=== PATIENT | female | born 1955 | race Caucasian/White ===

== ENCOUNTER → 2016-07-13 | Outpatient (CLI) | payer BC | LOC: WI 09:20 | PROVIDERS: ATTEND Family Medicine | DX: Z12.31 Encounter for screening mammogram for malignant neoplasm of breast (principal) | CPT/HCPCS: 77067; G0202 ==

== ENCOUNTER → 2016-07-21 | Outpatient (CLI) | payer BC | LOC: RAD 13:04 | PROVIDERS: ATTEND Orthopaedic Surgery | DX: M25.512 Pain in left shoulder (principal); M75.92 Shoulder lesion, unspecified, left shoulder ==

== ENCOUNTER → 2017-10-06 | Outpatient (CLI) | payer BC ==
--- NOTE | 2017-10-06 16:55 | WOMENS IMAGING REPORT ---
EXAM DESCRIPTION: BILAT SCREENING MAMMO W/CAD COMPLETED DATE/TIME: 10/06/2017 3:45 pm REASON FOR STUDY: ROUTINE SCREENING;Z12.31 Z12.31 ENCNTR SCREEN MAMMOGRAM FOR MALIGNANT NEOPLASM OF DOROTHY COMPARISON: 07/13/2016 and 08/08/2014 TECHNIQUE: Standard craniocaudal and mediolateral oblique views of each breast recorded using digita l acquisition. LIMITATIONS: None. FINDINGS: Findings present which are benign by mammographic criteria. No suspicious masses, calcifi cations or architectural distortion. Read with the assistance of CAD. .[facility] - R2 Cenova Version 1.3 .[facility] - R2 Cenova Version 1.3 .[facility] - R2 Cenova Version 2.4 .[facility] - R2 Cenova Version 2.4 .[facility] - R2 [employer] Version 9.2 Benign mammographic findings may include one or more of the following: Smooth masses, popcorn/rim/co arse calcifications, asymmetries, post-procedure changes, and lesions with long-standing stability. IMPRESSION: BENIGN MAMMOGRAPHIC FINDINGS. BIRADS 2 BREAST DENSITY: a. The breasts are almost entirely fatty. BIRAD: 2 BENIGN FINDING(S) RECOMMENDATION: ROUTINE SCREENING COMMENT: The patient has been notified of the results by letter per SA requirements. Additional no tification policies are in place for contacting patient with suspicious or incomplete findings. Quality ID #225: The [employer] recommends an annual screening mammogram for women aged 40 years or over. This facility utilizes a reminder system to ensure that all patients receive reminder letters, and/or direct phone calls for appointments. This includes reminders for routine scr eening mammograms, diagnostic mammograms, or other Breast Imaging Interventions when appropriate. Th is patient will be placed in the appropriate reminder system. The [employer] (ACR) has developed recommendations for screening MRI of the breast s in certain patient populations, to be used in conjunction with mammography. Breast MRI surveillanc e may be appropriate for women with more than 20% lifetime risk of developing breast cancer as deter mined by genetic testing, significant family history of the disease, or history of mantle radiation f or Hodgkins Disease. ACR Practice Guidelines 2008. TECHNICAL DOCUMENTATION: FINDING NUMBER: (1) ASSESSMENT: (1) JOB ID: [id number] [employer]- All Rights Reserved Reading location - IP/workstation name: [email or web address]
== END ==
LOC: WI 14:35
PROVIDERS: ATTEND Physician Assistant
DX: Z12.31 Encounter for screening mammogram for malignant neoplasm of breast (principal)
CPT/HCPCS: 77067

== ENCOUNTER → 2017-11-05 | Outpatient (CLI) | payer BC ==
--- NOTE | 2017-11-05 16:35 | RADIOLOGY REPORT (SQ) ---
EXAM DESCRIPTION: U/S THYROID/SFT TISS HD NECK COMPLETED DATE/TIME: 11/05/2017 4:25 pm REASON FOR STUDY: IODINE-DEFICIENCY RELATED DIFFUSE (ENDEMIC) GOITER E01.0 IODINE-DEFICIENCY RELATE D DIFFUSE (ENDEMIC) GOITER COMPARISON: None. TECHNIQUE: Dynamic and static shea-scale images acquired of the thyroid gland. Selected additional c olor/power Doppler images recorded. All images stored to PACS. LIMITATIONS: None. FINDINGS: RIGHT LOBE: Normal size. Homogeneous echotexture. No cystic or solid masses. LEFT LOBE: Normal size. Homogeneous echotexture. No cystic or solid masses. ISTHMUS: Normal size. Homogeneous echotexture. No cystic or solid masses. OTHER: 2 cm lymph nodes adjacent to the right and left lobe of the thyroid gland. No evidence for no rmal tissue replacement. IMPRESSION: Normal thyroid ultrasound. Prominent artemio thyroidal lymph nodes with normal morphology. TECHNICAL DOCUMENTATION: JOB ID: [id number] [employer]- All Rights Reserved Reading location - IP/workstation name: [facility]-RR
== END ==
LOC: RAD 15:36
PROVIDERS: ATTEND Physician Assistant
DX: E01.0 Iodine-deficiency related diffuse (endemic) goiter (principal)
CPT/HCPCS: 76536

== ENCOUNTER → 2018-01-21 | Outpatient (CLI) | payer BC ==
--- NOTE | 2018-01-21 16:07 | RADIOLOGY REPORT (SQ) ---
EXAM DESCRIPTION: CT SOFT TISSUE NECK WITH COMPLETED DATE/TIME: 01/21/2018 3:45 pm REASON FOR STUDY: R22.1 LOCALIZED SWELLING, MASS AND LUMP, NECK R22.1 LOCALIZED SWELLING, MASS AND LUMP, NECK COMPARISON: Two-view chest same date TECHNIQUE: Post IV contrasted scanning from skull base through lung apices with review of bone, soft tissue and lung windows. Reconstructed coronal and sagittal MPR images reviewed. All images stored on PACS. All CT scanners at this facility use dose modulation, iterative reconstruction, and/or weight based d osing when appropriate to reduce radiation dose to as low as reasonably achievable (ALARA). [facility]: Dose Right [facility]: CareDose [facility]: Dose Right [facility]: Teradose 4D [facility]: [employer]ge CONTRAST TYPE AND DOSE: contrast/concentration: Isovue 350.00 mg/ml; Total Contrast Delivered: 75.0 ml; Total Saline Delivered: 37.4 ml RENAL FUNCTION: Creatinine 0.8 RADIATION DOSE: 22.5 mGy . LIMITATIONS: None. FINDINGS: There is upper mediastinal adenopathy with a conglomerate mass measuring 5.7 x 3.3 cm in s ize on axial image 107. This causes near occlusion of the superior vena cava and right and left brac hiocephalic vein on axial images 95-115. Multiple other smaller subcentimeter lymph nodes are seen a t the thoracic inlet, bilateral carotid spaces and posterior triangles. There is subcutaneous edema in the neck. The bilateral internal jugular veins are patent. There is a moderate left pleural effusion layering dependently in the left chest. These findings were called to DARNELL Guevara. CT scan of the chest abdomen and pelvis will be perfo rmed shortly. SKULL BASE: Inferior brain parenchyma unremarkable MAJOR SALIVARY GLANDS: No solid or cystic masses. No inflammatory changes. LYMPHADENOPATHY: As above MUCOSAL MASSES OR ASYMMETRY: No mucosal masses or asymmetry. LARYNX/CORDS: No abnormal findings. VASCULAR STRUCTURES: In the neck, the internal jugular veins are patent. There is atherosclerotic ca lcification at both carotid bifurcations without flow significant stenosis of the proximal internal c arotid arteries. LUNG APICES: Moderate left pleural effusion BONES: Degenerative disc changes at C5-6. THYROID: Normal size. No masses. PARANASAL SINUSES: Clear. OTHER: No other significant finding. 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 Sub cutaneous edema in the neck soft tissues. COMMENT: Pertinent findings on the imaging study reported as a CRITICAL RESULT to ADIA PALENCIA at16:00 on 01/21/2018. 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
--- NOTE | 2018-01-21 16:08 | RADIOLOGY REPORT (SQ) ---
EXAM DESCRIPTION: CHEST 2 VIEWS COMPLETED DATE/TIME: 01/21/2018 3:55 pm REASON FOR STUDY: R05 COUGH COMPARISON: None. EXAM PARAMETERS: NUMBER OF VIEWS: two views TECHNIQUE: Digital Frontal and Lateral radiographic views of the chest acquired. RADIATION DOSE: NA LIMITATIONS: none FINDINGS: LUNGS AND PLEURA: Blunting of the left costophrenic angle with mild left pleural effusion and compressive atelectatic changes left lower lung. The right lung is clear. No pneumothorax. MEDIASTINUM AND HILAR STRUCTURES: No masses or contour abnormalities. HEART AND VASCULAR STRUCTURES: Heart normal size. No evidence for failure. BONES: No acute findings. HARDWARE: None in the chest. OTHER: No other significant finding. IMPRESSION: 1. Mild left pleural effusion and left lower lung compressive atelectasis. Correlation suggested. TECHNICAL DOCUMENTATION: JOB ID: [id number] [email or web address]- All Rights Reserved Reading location - IP/workstation name: [email or web address]
--- NOTE | 2018-01-21 17:22 | RADIOLOGY REPORT (SQ) ---
EXAM DESCRIPTION: CT CHEST WITH; CT ABD/PELVIS WITH IV ONLY COMPLETED DATE/TIME: 01/21/2018 4:23 pm; 01/21/2018 4:10 pm REASON FOR STUDY: MEDIASTINAL LYMPHADENOPATHY R22.1 LOCALIZED SWELLING, MASS AND LUMP, NECK COMPARISON: CT soft tissue neck earlier today CONTRAST TYPE AND DOSE: 75 mL of IV Omnipaque 350- low osmolar. RENAL FUNCTION: Creatinine 0.8 TECHNIQUE: CT scan of the chest performed using helical scanning technique with dynamic intravenous contrast injection. Images reviewed with lung, soft tissue and bone windows. Reconstructed coronal a nd sagittal MPR images reviewed. All images stored on PACS. CT scan of the abdomen and pelvis performed with intravenous and without oral contrastusing helical s brian technique with dynamic intravenous contrast injection. Images reviewed with lung, soft tissu e and bone windows. Reconstructed coronal and sagittal MPR images reviewed. He All images stored on PACS. All CT scanners at this facility use dose modulation, iterative reconstruction, and/or weight based d osing when appropriate to reduce radiation dose to as low as reasonably achievable (ALARA). [facility]: Dose Right [facility]: CareDose [facility]: Dose Right [facility]: Teradose 4D [facility]: [employer] RADIATION DOSE: CT Rad equipment meets quality standard of care and radiation dose reduction techniq ues were employed. CTDIvol: 7.5 - 8.7 mGy. DLP: 686 mGy-cm. . LIMITATIONS: None. FINDINGS: CHEST: LUNGS AND PLEURA: Trace right, moderate left pleural effusion layering in the dependent portion of th e chest. There is left basilar atelectasis. No pulmonary nodules. No pneumothorax. HILAR AND MEDIASTINAL STRUCTURES: Superior vena cava is near completely occluded by a 5.8 x 3.4 cm up per mediastinal mass, best shown on axial images 11 through 23 and coronal images 39 through 49. There is a sub- carinal 4.4 x 2.8 cm lymph node. Small 1 cm right hilar lymph nodes are present. HEART AND VASCULAR STRUCTURES: Near complete occlusion of the superior vena cava by soft tissue mass in the upper mediastinum. There is tumor or thrombus in the right brachiocephalic vein and left brac hiocephalic vein. Contrast enhancement of the left chest wall veins, azygos and guanaco azygous veins HARDWARE: None. THYROID AND OTHER SOFT TISSUES: Thyroid unremarkable. Mild anterior chest wall edema, bilateral paco st edema. BONES: No significant finding. OTHER: This report was discussed with Diane Cifuentes ABDOMEN AND PELVIS: LIVER: Normal size. No masses. No dilated ducts. SPLEEN: Normal size. No focal lesions. PANCREAS: No masses. No significant calcifications. No adjacent inflammation or peripancreatic fluid collections. Pancreatic duct not dilated. GALLBLADDER: Surgically absent ADRENAL GLANDS: No significant masses or asymmetry. RIGHT KIDNEY AND URETER: No solid masses. No significant calcification. No hydronephrosis or hydroure ter. LEFT KIDNEY AND URETER: No solid masses. No significant calcification. No hydronephrosis or hydrouret er. AORTA AND VESSELS: No aneurysm. No dissection. Renal arteries, SMA, celiac without stenosis. RETROPERITONEUM: No retroperitoneal adenopathy, hemorrhage or masses. BOWEL AND PERITONEAL CAVITY: No masses or inflammatory changes. No free fluid or peritoneal masses. APPENDIX: Normal. ABDOMINAL WALL: No masses. No hernias. PELVIS: No mass or free fluid. Normal bladder. Normal size female pelvic organs BONES: No significant or acute findings. OTHER: No other significant finding. IMPRESSION: 5.8 x 3.4 cm upper mediastinal mass with near complete occlusion of the superior vena ca va. Right hilar and sub- carinal adenopathy. Trace right, moderate left pleural effusion No CT evidence of metastatic disease to the abdomen or pelvis Findings discussed with Diane Cifuentes and Dr. Kothari, 1710 hours 01/21/2018 TECHNICAL DOCUMENTATION: JOB ID: [id number] Quality ID # 436: Final reports with documentation of one or more dose reduction techniques (e.g., Au tomated exposure control, adjustment of the mA and/or kV according to patient size, use of iterative reconstruction technique) 2010 [employer]- All Rights Reserved Reading location - IP/workstation name: [facility]-[email or web address]
== END ==
LOC: RAD 16:43
PROVIDERS: ATTEND Physician Assistant
DX: J90 Pleural effusion, not elsewhere classified (principal); R59.0 Localized enlarged lymph nodes; R05 Cough; R22.2 Localized swelling, mass and lump, trunk
CPT/HCPCS: 70491; 71046; 71260; 74177; 82565

== ENCOUNTER → 2018-04-01 | Outpatient (CLI) | payer BC ==
[2018-04-01 08:22] LABS: ABSOLUTE MONOCYTES (AUTO) 0.5 10^3/uL (0.1-1.4); ABSOLUTE NEUT (AUTO) 2.3 10^3/uL (1.7-8.2); BASOPHILS % (AUTO) 0.6 % (0-2); EOSINOPHILS % (AUTO) 0.9 % (0-6); HEMATOCRIT 28.6 % (36.0-47.0); HEMOGLOBIN 9.9 g/dL (12.0-15.5); MEAN CORPUSCULAR HEMOGLOBIN 29.9 pg (27.0-33.4); MEAN CORPUSCULAR HGB CONC 34.7 g/dL (32.0-36.0); MEAN CORPUSCULAR VOLUME 86 fl (80-97); MONOCYTES % (AUTO) 12.7 % (3-13); PLATELET COUNT 189 10^3/uL (150-450); RED BLOOD COUNT 3.32 10^6/uL (3.72-5.28); RED CELL DISTRIBUTION WIDTH 18.2 % (11.5-14.0); SEGMENTED NEUTROPHILS % (AUTO) 59.8 % (42-78); TOTAL CELLS COUNTED % (AUTO) 100 %; WHITE BLOOD COUNT 3.8 10^3/uL (4.0-10.5)
== END ==
LOC: OD 07:33
PROVIDERS: ATTEND Radiology Radiation Oncology
DX: C34.00 Malignant neoplasm of unspecified main bronchus (principal)
CPT/HCPCS: 36415; 85025

== ENCOUNTER → 2018-04-21 | Outpatient (CLI) | payer BC ==
[2018-04-21 16:27] LABS: ABSOLUTE LYMPHOCYTES (AUTO) 0.6 10^3/uL (0.5-4.7); ABSOLUTE MONOCYTES (AUTO) 0.4 10^3/uL (0.1-1.4); ABSOLUTE NEUT (AUTO) 1.8 10^3/uL (1.7-8.2); BASOPHILS % (AUTO) 0.2 % (0-2); EOSINOPHILS % (AUTO) 0.4 % (0-6); HEMATOCRIT 25.8 % (36.0-47.0); HEMOGLOBIN 9.1 g/dL (12.0-15.5); LYMPHOCYTES % (AUTO) 20.7 % (13-45); MEAN CORPUSCULAR HEMOGLOBIN 31.5 pg (27.0-33.4); MEAN CORPUSCULAR HGB CONC 35.3 g/dL (32.0-36.0); MEAN CORPUSCULAR VOLUME 89 fl (80-97); MONOCYTES % (AUTO) 13.8 % (3-13); PLATELET COUNT 123 10^3/uL (150-450); RED CELL DISTRIBUTION WIDTH 21.4 % (11.5-14.0); SEGMENTED NEUTROPHILS % (AUTO) 64.9 % (42-78); TOTAL CELLS COUNTED % (AUTO) 100 %; WHITE BLOOD COUNT 2.7 10^3/uL (4.0-10.5)
== END ==
LOC: OD 14:41
PROVIDERS: ATTEND Radiology Radiation Oncology
DX: C34.00 Malignant neoplasm of unspecified main bronchus (principal); C77.1 Secondary and unspecified malignant neoplasm of intrathoracic lymph nodes
CPT/HCPCS: 36415; 85025

== ENCOUNTER 2019-01-28 00:22 | Observation (INO) | payer BC ==
[2019-01-28] MEDS ORDERED: METHYLPREDNISOLONE INJ 125 MG/2 ML SDV IV ONE (00:44)
[2019-01-28] MEDS ORDERED: ALBUTEROL SULFATE 0.083% NEB 2.5 MG/3 ML AMPUL NEB ONE (00:44)
[2019-01-28] MEDS ORDERED: IPRATROPIUM BROMIDE 0.02% NEB 0.5 MG/2.5 ML AMPUL NEB ONE (00:44)
--- NOTE | 2019-01-28 01:49 | RADIOLOGY REPORT (SQ) ---
EXAM DESCRIPTION: X-ray single view chest. CLINICAL HISTORY: 63 years Female, sob COMPARISON: Chest x-ray and chest CT performed on 11/13/2018 TECHNIQUE: Single portable x-ray view of the chest performed on 01/28/2019 at 1:09 AM FINDINGS: The lungs are well expanded. There is bibasilar and left perihilar interstitial prominence which may be due to fibrosis and/or atelectasis versus possible interstitial edema. There is no evidence of a pneumothorax. There is a metallic stent along the superior vena cava. The cardiac silhouette is normal in size and configuration. The mediastinal contours are normal. No acute osseous abnormality is identified. No focal soft tissue abnormalities are seen. Lines and tubes: None. IMPRESSION: 1. Bibasilar and left perihilar interstitial prominence which could reflect fibrosis, atelectasis or interstitial edema. 2. Stable superior vena cava stent.
[2019-01-28 02:07] LABS: ABSOLUTE LYMPHOCYTES (AUTO) 0.9 10^3/uL (0.5-4.7); ABSOLUTE MONOCYTES (AUTO) 0.7 10^3/uL (0.1-1.4); ABSOLUTE NEUT (AUTO) 6.8 10^3/uL (1.7-8.2); BASOPHILS % (AUTO) 0.1 % (0-2); HEMATOCRIT 26.7 % (36.0-47.0); HEMOGLOBIN 8.4 g/dL (12.0-15.5); LYMPHOCYTES % (AUTO) 10.7 % (13-45); MEAN CORPUSCULAR HEMOGLOBIN 27.2 pg (27.0-33.4); MEAN CORPUSCULAR HGB CONC 31.6 g/dL (32.0-36.0); MEAN CORPUSCULAR VOLUME 86 fl (80-97); MONOCYTES % (AUTO) 8.2 % (3-13); PLATELET COUNT 182 10^3/uL (150-450); TOTAL CELLS COUNTED % (AUTO) 100 %; WHITE BLOOD COUNT 8.4 10^3/uL (4.0-10.5)
[2019-01-28 02:12] LABS: INTERNATIONAL RATION (INR) 1.25
[2019-01-28 02:31] LABS: PROTHROMBIN TIME 15.8 SEC (11.4-15.4)
[2019-01-28 02:49] LABS: ALBUMIN 3.3 g/dL (3.5-5.0); ALKALINE PHOSPHATASE 187 U/L (38-126); ANION GAP 7 (5-19); ASPARTATE AMINO TRANSFERASE 61 U/L (14-36); BILIRUBIN,DIRECT 0.2 mg/dL (0.0-0.4); BILIRUBIN,TOTAL 0.5 mg/dL (0.2-1.3); BLOOD UREA NITROGEN 41 mg/dL (7-20); CALCIUM 8.5 mg/dL (8.4-10.2); CARBON DIOXIDE 28 mmol/L (22-30); CHLORIDE 103 mmol/L (98-107); GLUCOSE 287 mg/dL (75-110); TOTAL PROTEIN 5.8 g/dL (6.3-8.2)
[2019-01-28 03:04] LABS: TROPONIN I 0.156 ng/mL
[2019-01-28] MEDS ORDERED: NITROGLYCERIN 2% OINTMENT 1 GM PACKET TP ONE (03:08)
[2019-01-28] MEDS ORDERED: ASPIRIN 325 MG TABLET PO ONE (03:08)
[2019-01-28] MEDS ORDERED: FUROSEMIDE INJ/PF 40 MG/4 ML SDV IV ONE (03:34)
--- NOTE | 2019-01-28 03:45 | ER Document Report ---
ED Respiratory Problem - General Chief Complaint: Breathing Difficulty Stated Complaint: SHORTNESS OF BREATH Primary Care Provider: MILTON PALENCIA PA-C [Primary Care Provider] - Follow up as needed Information source: Patient TRAVEL OUTSIDE OF THE [place] IN LAST 30 DAYS: No - HPI Patient complains to provider of: No: Asthma, Chest pain, CHF, COPD, Cough, Hurts to breath, Other Onset: Just prior to arrival Duration: Continuous Initiating Event: No: Allergy, Aspiration/Choking, Exertion, Exposure to chemica ls, Exposure to dust, Exposure to fumes, Exposure to mold, Exposure to smoke, Out of meds, Sports/exercise, URI, Other Quality of pain: denies: No pain, Achy, Burning, Cramping, Dull, Fullness, Pressure, Sharp, Stabbing, Throbbing, Other Context: denies: DVT, Factor V Leiden, Hx asthma, Hx CHF, Hx COPD, Malignancy, , Recent cardiac event, Recent foreign travel, Recent long distance trvl, Recent immobilization, Recent surgery, Smoker, Other Short of Breath: Moderate Chest pain/discomfort: denies: Center, Constant, Heaviness, Intermittent, Left, Pain, Radiates to arm, Radiates to back, Radiates to jaw, Right, Tightness, Worse with deep breaths Cough: Nonproductive Sputum amount: denies: None, Scant, Small, Moderate, Large, Copious Sputum color: denies: Brown, Clear, Creamy, Lloyd, Green, [place] tinged, Red (blo od), Red Specks, Rust, Small Clots, [place], White, Yellow At home treatment: denies: Bronchodilators, CPAP, Diuretics, Inhaled steroids, Oral steroids, Oxygen, Singulair, Theophylline EMS treatments: No: Bronchodilators, CPAP, Diuretics, Epinephrine, Nitrates, Oxygen, Solumedrol Associated symptoms: Cough, Short of breath. denies: None, Ankle/leg swelling, Allergy/hay fever, Anxiety, Bloody cough, Chest pain/discomfort, Chills, Congestion, Dental decay, Difficulty breathing, Earache, Extertional dyspnea, Facial pain, Fever, Headache, Heart racing, Hoarseness, Hurts to breathe, Hyperventilation, Jaw pain, Leg/calf/joint pain, Muscle spasms, Orthopnea, PND, Runny nose, Sinus pain/pressure, Sore Throat, Sweaty, Tingling face, Tingling hands, Unable to swallow, Toothache, Wheezing, Other - Related Data Allergies/Adverse Reactions: codeine Allergy (Verified 11/12/18 23:12) Past Medical History - Social History Smoking Status: Current Every Day Smoker Family History: COPD, Hypertension Patient has suicidal ideation: No Patient has homicidal ideation: No Endocrine Medical History: Reports: Hx Hypothyroidism Renal/ Medical History: Denies: Hx Peritoneal Dialysis Malignancy Medical History: Reports: Hx Lung Cancer Musculoskeletal Medical History: Reports Hx Arthritis Psychiatric Medical History: Reports: Hx Depression Past Surgical History: Reports: Hx Vascular Surgery Review of Systems - Review of Systems Constitutional: denies: No symptoms reported, See HPI, Chills, Diaphoresis, Fever, Malaise, Weakness, Other, Weight gain, Weight loss, Recent illness EENT: denies: No symptoms reported, See HPI, Eye pain, Eye discharge, Blurred vision, Tearing, Double vision, Ear pain, Ear discharge, Nose pain, Nose congestion, Nose discharge, Sinus pressure, Sinus discharge, Throat pain, Difficulty swallowing, Throat swelling, Mouth pain, Mouth swelling, Dental problem, Vertigo, Other Cardiovascular: Orthopnea, Dyspnea. denies: No symptoms reported, See HPI, Chest pain, Palpitations, Heart racing, Syncope, Dizziness, Lightheaded, Edema, Other, Paroxysmal Nocturnal Dysp Respiratory: Short of breath, Wheezing. denies: No symptoms reported, See HPI, Cough, Hurts to breathe, Hemoptysis, Sputum, Stridor, Other Gastrointestinal: denies: No symptoms reported, See HPI, Abdomen distended, Abdominal pain, Diarrhea, Nausea, Vomiting, Constipation, Blood streaked bowels, Poor appetite, Poor fluid intake, Blood in vomit, Black stools, Rectal bleeding, Last bowel movement, Fecal incontinence, Other Neurological/Psychological: denies: No symptoms reported, See HPI, Confusion, Dementia, Depression, Hallucinations, Anxiety, Homicidal ideation, Sensory change, Weakness, Gait changes, Loss of power, Paralysis, Seizure, Lost consciousness, Headaches, Speech impairment, Numbness, Suicidal ideation, Tingling, Tremor, Other -: Yes All other systems reviewed and negative Physical Exam - Vital signs Vitals: Temp Resp BP Pulse Ox 97.6 F 24 H 115/68 99 01/28/19 00:34 01/28/19 00:34 01/28/19 00:34 01/28/19 00:34 Notes: PHYSICAL EXAMINATION: GENERAL: Well-appearing, well-nourished and in no acute distress. HEAD: Atraumatic, normocephalic. EYES: Pupils equal round and reactive to light, extraocular movements intact, sclera anicteric, conjunctiva are normal. ENT: nares patent, oropharynx clear without exudates. Moist mucous membranes. NECK: Normal range of motion, supple without lymphadenopathy LUNGS: Wheezes heard bilaterally and Rales heard bilaterally throughout HEART: Regular rate and rhythm without murmurs ABDOMEN: Soft, nontender, normoactive bowel sounds. No guarding, no rebound. No masses appreciated. EXTREMITIES: Normal range of motion, no pitting or edema. No cyanosis. NEUROLOGICAL: No focal neurological deficits. Moves all extremities spontaneously and on command. PSYCH: Normal mood, normal affect. SKIN: Warm, Dry, normal turgor, no rashes or lesions noted. Course - Vital Signs Vital signs: Temp Pulse Resp BP Pulse Ox 97.6 F 17 110/69 98 01/28/19 00:34 01/28/19 03:00 01/28/19 01:01 01/28/19 03:00 - Laboratory Result Diagrams: 01/28/19 01:47 01/28/19 01:47 Laboratory results interpreted by me: 01/28/19 01/28/19 01/28/19 01:47 01:47 01:47 RBC 3.10 L Hgb 8.4 L Hct 26.7 L MCHC 31.6 L RDW 22.0 H Lymph % (Auto) 10.7 L Seg Neutrophils % 81.0 H PT 15.8 H BUN 41 H Est GFR (MDRD) Non-Af 58 L Glucose 287 H AST 61 H Alkaline Phosphatase 187 H NT-Pro-B Natriuret Pep Total Protein 5.8 L Albumin 3.3 L 01/28/19 01:47 RBC Hgb Hct MCHC RDW Lymph % (Auto) Seg Neutrophils % PT BUN Est GFR (MDRD) Non-Af Glucose AST Alkaline Phosphatase NT-Pro-B Natriuret Pep 32169 H Total Protein Albumin - Diagnostic Test Radiology reviewed: Image reviewed, Reports reviewed - EKG Interpretation by Me Rate: Normal Rhythm: NSR When compared to previous EKG there are: Changes noted Additional EKG results interpreted by me: 01/28/19 03:45 G shows flipped T's in 1 aVL V3 to V6 which are new from previous EKG suggesting ischemic changes - Transfer of Care Notes: 01/28/19 03:[address] Mckeon body sander was consulted and case discussed with him he suggested medicine admit to the hospitalist and he would consult if necessary Discharge - Discharge Clinical Impression: New onset of congestive heart failure, Non-ST elevation myocardial infarction (NSTEMI) Condition: Good Disposition: ADMITTED INPATIENT Admitting Provider: Yuliya (Hospitalist) Unit Admitted: Medical Floor Referrals: MILTON PALENCIA PA-C [Primary Care Provider] - Follow up as needed
[2019-01-28] MEDS ORDERED: ACETAMINOPHEN 325 MG TABLET PO PRN (04:34)
[2019-01-28] MEDS ORDERED: MAGNESIUM HYDROXIDE SUSP 30 ML UDCUP PO PRN (04:34)
[2019-01-28] MEDS ORDERED: MAG HYDROX/AL HYDROX/SIMETH SUSP 30 ML UDCUP PO PRN (04:34)
[2019-01-28] MEDS ORDERED: ONDANSETRON HCL INJ/PF 4 MG/2 ML SDV IV PRN (04:34)
[2019-01-28] MEDS ORDERED: INSULIN REG, HUMAN 100 UNIT/ML 3 ML VIAL (PYX) SUBCUT PRN (04:45)
[2019-01-28] MEDS ORDERED: MORPHINE SULFATE 10 MG/ML INJ IV PRN (04:45)
[2019-01-28] MEDS ORDERED: NICOTINE 21 MG/24 HR PATCH.TD24 TD PRN (04:45)
[2019-01-28] MEDS ORDERED: LEVALBUTEROL HCL NEB 0.63 MG/3 ML AMPUL NEB PRN (04:45)
[2019-01-28] MEDS: FUROSEMIDE INJ/PF 40 MG/4 ML SDV IV SCH ×3 (05:58→17:20)
[2019-01-28] MEDS ORDERED: HEPARIN SOD (PORCINE) 5,000 UNIT/ML 1 ML VIAL SUBCUT SCH (06:00)
[2019-01-28] MEDS: NITROGLYCERIN 2% OINTMENT 1 GM PACKET TP SCH ×4 (06:03→23:03)
[2019-01-28] MEDS: PANTOPRAZOLE SODIUM 40 MG TABLET.DR PO SCH (06:27)
--- NOTE | 2019-01-28 07:02 | PDOC H&P ---
History of Present Illness Admission Date/PCP: 01/28/2019 03:44 MILTON PALENCIA PA-C Patient complains of: Dyspnea History of Present Illness: SAMI WARREN is a 63 year old female who presented to the emergency room with acute onset dyspnea. She admits that she suddenly developed dyspnea a few hours prior to her presentation to the emergency room. Her moderate to severe dyspnea was constant and persistent accompanied by a nonproductive cough and orthopnea. Her dyspnea was worsened by exertion, and because of its failure to resolve she presented to the emergency room. She admits a recent gamma knife therapy for her metastatic brain lesions performed in [place]. She acknowledges swelling of her bilateral lower extremities and face due to the high-dose steroids she has taken since the gamma knife "surgery". She denies other associated or accompanying signs and symptoms. She denies prior similar episodes and she has not identified any additional aggravating or ameliorating factors for her dyspnea. In the emergency room she was found to have a BNP of 39,600 and a chest x-ray consistent with congestive heart failure. She was also noted to have ischemic changes on her EKG but no ST segment elevation. Her troponin was mildly elevated into the indeterminate zone. With these findings patient was subsequently admitted to the medical floor for further evaluation and treatment. Past Medical History Cardiac Medical History: Reports: Hyperlipidema, Hypertension Denies: Atrial Fibrillation, Congestive Heart Failure, Coronary Artery Disease, DVT, Myocardial Infarction, Peripheral Vascular Disease, Pulmonary Embolism Pulmonary Medical History: Reports: Chronic Obstructive Pulmonary Disease (COPD) Denies: Asthma EENT Medical History: Denies: Cataracts, Ears - Hearing aids Neurological Medical History: Denies: Hemorrhagic CVA, Ischemic CVA, Seizures Endocrine Medical History: Reports: Hypothyroidism, Obesity Denies: Diabetes Mellitus Type 1, Diabetes Mellitus Type 2, Hyperthyroidism Renal/ Medical History: Denies: Chronic Kidney Disease, Nephrolithiasis Malignancy Medical History: Reports: Lung Cancer - With brain metastases GI Medical History: Denies: Cirrhosis, Hepatitis Musculoskeltal Medical History: Reports: Arthritis Denies: Gout Skin Medical History: Denies: Eczema, Psoriasis Psychiatric Medical History: Reports: Depression, Tobacco Dependency Denies: Alcohol Dependency, Substance Abuse Traumatic Medical History: Reports: None Hematology: Denies: Anemia, Bleeding Tendencies Infectious Medical History: Reports: None Past Surgical History Past Surgical History: Reports: Vascular Surgery - Vena cava stenting to relieve tumor obstruction, Other - Gamma knife neurosurgery for brain metastases x2 Social History Information Source: Patient Lives with: Alone Smoking Status: Current Every Day Smoker Electronic Cigarette use?: No Frequency of Alcohol Use: None Hx Recreational Drug Use: No Drugs: None Hx Prescription Drug Abuse: No - Advance Directive Resuscitation Status: Full Code Surrogate healthcare decision maker:: Sean Warren Jr. Family History Family History: COPD, Hypertension Parental Family History Reviewed: Yes Children Family History Reviewed: No Sibling(s) Family History Reviewed.: Yes Medication/Allergy Home Medications: Amlodipine Besylate [Norvasc 5 mg Tablet] 5 mg PO Q12 11/13/18 Apixaban [Eliquis 5 mg Tablet] 5 mg PO BID 11/13/18 Aspirin [Ecotrin 81 mg EC Tablet] 81 mg PO DAILY 11/13/18 Benazepril HCl 20 mg PO Q12 11/13/18 Metoprolol Succinate [Toprol Xl 50 mg Tab.sr] 50 mg PO Q12 11/13/18 Pantoprazole Sodium 40 mg PO QAM 11/13/18 Pravastatin Sodium 20 mg PO QHS 11/13/18 Acetaminophen [Tylenol 325 mg Tablet] 650 mg PO Q4HP PRN tablet 11/14/18 Atorvastatin Calcium [Lipitor 40 mg Tablet] 40 mg PO QHS tablet 11/14/18 Ciprofloxacin HCl/Hc [Cipro HC Otic Suspension] 4 drop TOP BID #1 bottle 11/14/18 Naproxen Sodium [Naprelan] 500 mg PO BID PRN 7 Days #14 tablet.sa 11/14/18 Allergies/Adverse Reactions: codeine Allergy (Verified 11/12/18 23:12) Review of Systems Constitutional: ABSENT: chills, fever(s) Eyes: ABSENT: visual disturbances, other - Eye pain Ears: ABSENT: hearing changes, other - Ear pain Nose, Mouth, and Throat: ABSENT: headache(s), mouth pain, sore throat Cardiovascular: PRESENT: dyspnea on exertion, edema, orthropnea. ABSENT: chest pain, palpitations Respiratory: PRESENT: cough, dyspnea. ABSENT: sputum Gastrointestinal: ABSENT: abdominal pain, constipation, diarrhea, nausea, vomiting Genitourinary: ABSENT: dysuria, hematuria Musculoskeletal: ABSENT: back pain - The, joint swelling, muscle weakness Integumentary: ABSENT: pruritus, rash Neurological: ABSENT: confusion, convulsions, focal weakness, memory loss, syncope Psychiatric: ABSENT: anxiety, depression Endocrine: ABSENT: cold intolerance, heat intolerance Hematologic/Lymphatic: ABSENT: easy bleeding, easy bruising Allergic/Immunologic: ABSENT: seasonal rhinorrhea Physical Exam Vital Signs: Temp Pulse Resp BP Pulse Ox 97.6 F 17 110/69 98 01/28/19 00:34 01/28/19 03:00 01/28/19 01:01 01/28/19 03:00 Intake & Output 01/26/19 01/27/19 01/28/19 23:59 23:59 23:59 Weight 83.915 kg General appearance: PRESENT: no acute distress, cooperative, obese Head exam: PRESENT: atraumatic, normocephalic, other - Cushingoid "griffith" facies Eye exam: PRESENT: conjunctiva pink. ABSENT: conjunctival injection, scleral icterus Ear exam: PRESENT: normal external ear exam. ABSENT: bleeding, drainage Mouth exam: PRESENT: dry mucosa, neck supple Neck exam: ABSENT: thyromegaly, tracheal deviation Respiratory exam: PRESENT: decreased breath sounds - Mildly decreased breath sounds throughout all lung rahman consistent with mild to moderate COPD, prolonged expiratory phas - Mildly prolonged expiratory phase throughout all rahman, rales - Bibasilar fine rales present, symmetrical, wheezes - Mild expiratory wheezes throughout all rahman Cardiovascular exam: PRESENT: gallop - S4 gallop noted, RRR. ABSENT: clicks, rubs Pulses: PRESENT: normal radial pulses, normal dorsalis pedis pul, other - 3+ pitting edema of the bilateral lower extremities to the knees Vascular exam: PRESENT: normal capillary refill. ABSENT: pallor GI/Abdominal exam: PRESENT: normal bowel sounds, soft. ABSENT: tenderness Rectal exam: PRESENT: deferred Extremities exam: ABSENT: joint swelling, pedal edema Musculoskeletal exam: ABSENT: deformity, dislocation Neurological exam: PRESENT: alert, oriented to person, oriented to place, oriented to time, oriented to situation, CN II-XII grossly intact. ABSENT: motor sensory deficit Psychiatric exam: PRESENT: appropriate affect, normal mood Skin exam: PRESENT: dry, intact, warm. ABSENT: jaundice, rash, urticaria Results Laboratory Results: 01/28/19 01:47 01/28/19 01:47 01/28/19 01/28/19 01:47 01:47 WBC 8.4 RBC 3.10 L Hgb 8.4 L Hct 26.7 L MCV 86 MCH 27.2 MCHC 31.6 L RDW 22.0 H Plt Count 182 Seg Neutrophils % 81.0 H Sodium 138.2 Potassium 4.0 Chloride 103 Carbon Dioxide 28 Anion Gap 7 BUN 41 H Creatinine 0.97 Est GFR ( Amer) > 60 Glucose 287 H Calcium 8.5 Total Bilirubin 0.5 AST 61 H Alkaline Phosphatase 187 H Total Protein 5.8 L Albumin 3.3 L 01/28/19 01:47 Troponin I 0.156 NT-Pro-B Natriuret Pep 31766 H Impressions: Chest X-Ray 01/28/19 00:43 IMPRESSION: 1. Bibasilar and left perihilar interstitial prominence which could reflect fibrosis, atelectasis or interstitial edema. 2. Stable superior vena cava stent. Assessment and Plan - Diagnosis (1) Acute congestive heart failure Qualifiers: Heart failure type: unspecified Qualified Code(s): I50.9 - Heart failure, unspecified Is this a current diagnosis for this admission?: Yes Plan: Patient will be admitted for serial cardiac enzymes and further evaluation of her acute congestive heart failure. A cardiac consultation with Dr. Pitts will be obtained. An echocardiogram will also be obtained and the patient will be treated with diuretics utilizing IV Lasix and nitroglycerin utilizing Nitrol ointment as well as supplemental oxygen to maintain an O2 sat between 90 and 94% and morphine sulfate 2 mg IV nightly hour PRN severe dyspnea. Patient will be initiated on therapy for congestive heart failure at Dr. Pitts's discretion. (2) Chronic obstructive pulmonary disease (COPD) Qualifiers: COPD type: unspecified COPD Qualified Code(s): J44.9 - Chronic obstructive pulmonary disease, unspecified Is this a current diagnosis for this admission?: Yes Plan: Patient replaced on a pulmonary toilet for congestive heart failure consisting of nebulized Xopenex, Pulmicort and Atrovent. Her O2 sat we monitored throughout her hospital course and we will maintain her O2 sat between 90 and 94%. (3) Hyperlipidemia Qualifiers: Hyperlipidemia type: mixed hyperlipidemia Qualified Code(s): E78.2 - Mixed hyperlipidemia Is this a current diagnosis for this admission?: Yes Plan: Patient will be continued on her current hyperlipidemia therapy and a cardiac diet. (4) Hypothyroidism Qualifiers: Hypothyroidism type: unspecified Qualified Code(s): E03.9 - Hypothyroidism, unspecified Is this a current diagnosis for this admission?: Yes Plan: Patient will be continued on her current thyroid hormone replacement. (5) Tobacco use disorder, severe, dependence Is this a current diagnosis for this admission?: Yes Plan: Smoking cessation is advised and counseled briefly at the bedside. A nicotine replacement patch is available for the patient's use, if desired. (6) Hypertension Qualifiers: Hypertension type: essential hypertension Qualified Code(s): I10 - Essential (primary) hypertension Is this a current diagnosis for this admission?: Yes Plan: Patient will be continued on her current antihypertensive therapy and her blood pressure will be monitored closely throughout her hospital course. - Time Time Spent with patient: 25-34 minutes Smoking Cessation Education: 3 to 10 minutes Medications reviewed and adjusted accordingly: Yes Anticipated discharge: Home with Homehealth - Inpatient Certification Based on my medical assessment, after consideration of the patient's comorbidities, presenting symptoms, or acuity I expect that the services needed warrant INPATIENT care.: Yes I certify that my determination is in accordance with my understanding of Medicare's requirements for reasonable and necessary INPATIENT services [42 CFR 412.3e].: Yes Medical Necessity: Significant Comorbidiites Make Outpatient Treatment Too [place]is [place], Need Close Monitoring Due to Risk of Patient Decompensation, Risk of Complication if Not Cared For in Hospital
[2019-01-28 07:11] LABS: FREE T3 2.82 pg/mL (2.77-5.27); FREE T4 (FREE THYROXINE) 1.18 ng/dL (0.78-2.19)
[2019-01-28 07:25] LABS: THYROID STIMULATING HORMONE 1.32 uIU/mL (0.47-4.68)
[2019-01-28] MEDS: BUDESONIDE NEB 0.5 MG/2 ML AMPUL NEB SCH ×2 (08:14→20:44)
[2019-01-28] MEDS: IPRATROPIUM BROMIDE 0.02% NEB 0.5 MG/2.5 ML AMPUL NEB SCH ×2 (08:14→16:08)
[2019-01-28] MEDS: LEVALBUTEROL HCL NEB 1.25 MG/3 ML AMPUL NEB SCH ×2 (08:14→16:08)
[2019-01-28] MEDS: INSULIN REG, HUMAN 100 UNIT/ML 3 ML VIAL (PYX) SUBCUT SCH ×2 (08:50→12:45)
[2019-01-28] MEDS: POTASSIUM CHLORIDE 10 MEQ CAPSULE.ER PO SCH ×3 (08:50→17:21)
[2019-01-28 09:19] LABS: CREATINE KINASE MB 2.09 ng/mL (<4.55); TROPONIN I 0.117 ng/mL
[2019-01-28] MEDS: FAMOTIDINE 20 MG TABLET PO SCH ×2 (09:39→23:05)
[2019-01-28] MEDS: METOPROLOL SUCCINATE 50 MG TAB.SR.24H PO SCH ×3 (09:39→23:00)
[2019-01-28] MEDS: AMLODIPINE BESYLATE 5 MG TABLET PO SCH ×3 (09:39→23:00)
[2019-01-28] MEDS: BENAZEPRIL HCL 20 MG TABLET PO SCH ×3 (09:39→23:00)
[2019-01-28] MEDS: DOCUSATE SODIUM 100 MG CAPSULE PO SCH ×2 (09:39→09:43)
[2019-01-28] MEDS: APIXABAN 5 MG TABLET PO SCH ×2 (09:39→17:21)
[2019-01-28] MEDS ORDERED: DEXTROSE 50%-WATER 25 GM/50 ML DISP.SYRIN IV PRN ×2 (15:18)
[2019-01-28] MEDS ORDERED: DEXTROSE 40% GEL 15 GM TUBE PO PRN ×2 (15:18)
[2019-01-28] MEDS ORDERED: GLUCAGON,HUMAN RECOMB 1 MG INJ IM PRN (15:18)
[2019-01-28 15:36] LABS: CREATINE KINASE MB 2.03 ng/mL (<4.55); TROPONIN I 0.095 ng/mL
[2019-01-28] MEDS: INSULIN LISPRO 100 UNIT/ML 3 ML VIAL SUBCUT SCH ×2 (17:20→23:06)
[2019-01-28 21:13] LABS: CREATINE KINASE MB 1.63 ng/mL (<4.55); TROPONIN I 0.086 ng/mL
[2019-01-28] MEDS ORDERED: INSULIN GLARGINE,HUM.REC.ANLOG 1,000 UNIT/10 ML VIAL SUBCUT SCH (22:00)
[2019-01-28] MEDS: ATORVASTATIN CALCIUM 40 MG TABLET PO SCH (23:05)
--- NOTE | 2019-01-29 00:25 | EKG REPORT ---
SEVERITY:- ABNORMAL ECG - SINUS RHYTHM BORDERLINE RIGHT AXIS DEVIATION ABNORMAL T, CONSIDER ISCHEMIA, DIFFUSE LEADS PROLONGED QT INTERVAL : Confirmed by: Nadia Gonzalez 29-Jan-2019 00:24:33
[2019-01-29] MEDS: LEVALBUTEROL HCL NEB 1.25 MG/3 ML AMPUL NEB SCH ×3 (00:32→20:35)
[2019-01-29] MEDS: IPRATROPIUM BROMIDE 0.02% NEB 0.5 MG/2.5 ML AMPUL NEB SCH ×3 (00:33→20:35)
[2019-01-29] MEDS: NITROGLYCERIN 2% OINTMENT 1 GM PACKET TP SCH ×4 (05:56→23:27)
[2019-01-29] MEDS: PANTOPRAZOLE SODIUM 40 MG TABLET.DR PO SCH (05:57)
[2019-01-29 07:54] LABS: ABSOLUTE LYMPHOCYTES (AUTO) 1.6 10^3/uL (0.5-4.7); ABSOLUTE MONOCYTES (AUTO) 0.8 10^3/uL (0.1-1.4); ABSOLUTE NEUT (AUTO) 6.6 10^3/uL (1.7-8.2); BASOPHILS % (AUTO) 0.2 % (0-2); EOSINOPHILS % (AUTO) 0.1 % (0-6); HEMATOCRIT 23.6 % (36.0-47.0); LYMPHOCYTES % (AUTO) 17.4 % (13-45); MEAN CORPUSCULAR HEMOGLOBIN 27.2 pg (27.0-33.4); MEAN CORPUSCULAR HGB CONC 32.1 g/dL (32.0-36.0); MEAN CORPUSCULAR VOLUME 85 fl (80-97); MONOCYTES % (AUTO) 9.4 % (3-13); PLATELET COUNT 141 10^3/uL (150-450); RED BLOOD COUNT 2.77 10^6/uL (3.72-5.28); RED CELL DISTRIBUTION WIDTH 22.1 % (11.5-14.0); SEGMENTED NEUTROPHILS % (AUTO) 72.9 % (42-78); TOTAL CELLS COUNTED % (AUTO) 100 %
[2019-01-29 07:57] LABS: CHOLESTEROL 126.74 mg/dL (0-200); TRIGLYCERIDES 154 mg/dL (<150)
[2019-01-29 08:00] LABS: ALKALINE PHOSPHATASE 142 U/L (38-126); ANION GAP 9 (5-19); ASPARTATE AMINO TRANSFERASE 49 U/L (14-36); BILIRUBIN,DIRECT 0.2 mg/dL (0.0-0.4); BILIRUBIN,TOTAL 0.4 mg/dL (0.2-1.3); BLOOD UREA NITROGEN 48 mg/dL (7-20); CALCIUM 8.3 mg/dL (8.4-10.2); CARBON DIOXIDE 27 mmol/L (22-30); CHLORIDE 105 mmol/L (98-107); GLUCOSE 106 mg/dL (75-110); POTASSIUM 4.6 mmol/L (3.6-5.0); TOTAL PROTEIN 5.4 g/dL (6.3-8.2)
[2019-01-29 08:06] LABS: HEMOGLOBIN 7.6 g/dL (12.0-15.5)
[2019-01-29 08:08] LABS: DIRECT LDL 76 mg/dL (<100)
[2019-01-29 08:12] LABS: VLDL CHOLESTEROL 30.8 mg/dL (10-31)
[2019-01-29] MEDS: BUDESONIDE NEB 0.5 MG/2 ML AMPUL NEB SCH ×2 (08:27→20:35)
[2019-01-29] MEDS: INSULIN LISPRO 100 UNIT/ML 3 ML VIAL SUBCUT SCH ×4 (09:50→22:48)
[2019-01-29] MEDS: DOCUSATE SODIUM 100 MG CAPSULE PO SCH (10:18)
[2019-01-29] MEDS: AMLODIPINE BESYLATE 5 MG TABLET PO SCH (10:23)
[2019-01-29] MEDS: METOPROLOL SUCCINATE 50 MG TAB.SR.24H PO SCH (10:23)
[2019-01-29] MEDS: FAMOTIDINE 20 MG TABLET PO SCH ×2 (10:23→22:48)
[2019-01-29] MEDS: POTASSIUM CHLORIDE 10 MEQ CAPSULE.ER PO SCH ×3 (10:23→18:39)
[2019-01-29] MEDS: APIXABAN 5 MG TABLET PO SCH ×2 (10:23→18:39)
[2019-01-29] MEDS: BENAZEPRIL HCL 20 MG TABLET PO SCH (10:23)
[2019-01-29] MEDS ORDERED: FLUDROCORTISONE ACETATE 0.1 MG TABLET PO ONE (11:45)
--- NOTE | 2019-01-29 12:13 | PDOC PROGRESS REPORT ---
Subjective Progress Note for:: 01/29/19 Subjective:: SAMI FERRER is a 63 year old female who presented to the emergency room with acute onset dyspnea. She admits that she suddenly developed dyspnea a few hours prior to her presentation to the emergency room. Her moderate to severe dyspnea was constant and persistent accompanied by a nonproductive cough and orthopnea. Her dyspnea was worsened by exertion, and because of its failure to resolve she presented to the emergency room. She admits a recent gamma knife therapy for her metastatic brain lesions performed in [place]. She acknowledges swelling of her bilateral lower extremities and face due to the high-dose steroids she has taken since the gamma knife "surgery". She denies other associated or accompanying signs and symptoms. She denies prior similar episodes and she has not identified any additional aggravating or ameliorating factors for her dyspnea. In the emergency room she was found to have a BNP of 39,600 and a chest x-ray consistent with congestive heart failure. She was also noted to have ischemic changes on her EKG but no ST segment elevation. Her troponin was mildly elevated into the indeterminate zone. With these findings patient was subsequently admitted to the medical floor for further evaluation and treatment. 01/29/2019. No acute events overnight. Patient comfortably sitting in bed with supplemental oxygen, in no apparent distress, stating that she is feeling better, shortness of breath has improved, bilateral lower extremity edema is persistent, denies any fever, chills, nausea, vomiting, diarrhea, constipation or any urinary symptoms. Reason For Visit: ACUTE CHF,COPD Physical Exam Vital Signs: Temp Pulse Resp BP Pulse Ox 98.4 F 92 17 91/61 L 99 01/29/19 07:49 01/29/19 08:27 01/29/19 08:27 01/29/19 07:49 01/29/19 08:27 Intake & Output 01/28/19 01/29/19 01/30/19 06:59 06:59 06:59 Intake Total 1367 Balance 1367 Weight 83.915 kg 80 kg General appearance: PRESENT: no acute distress, obese, well-developed, well- nourished Head exam: PRESENT: atraumatic, normocephalic Respiratory exam: PRESENT: crackles. ABSENT: rales, rhonchi, wheezes GI/Abdominal exam: PRESENT: normal bowel sounds, soft. ABSENT: distended, guarding, mass, organolmegaly, rebound, tenderness Extremities exam: PRESENT: full ROM. ABSENT: calf tenderness, clubbing, pedal edema Neurological exam: PRESENT: alert, awake, oriented to person, oriented to place, oriented to time, oriented to situation, CN II-XII grossly intact. ABSENT: motor sensory deficit Results Laboratory Results: 01/29/19 07:25 01/29/19 07:25 01/29/19 01/29/19 01/29/19 07:25 07:25 07:25 WBC 9.0 RBC 2.77 L Hgb 7.6 L Hct 23.6 L MCV 85 MCH 27.2 MCHC 32.1 RDW 22.1 H Plt Count 141 L Seg Neutrophils % 72.9 Sodium 141.4 Potassium 4.6 Chloride 105 Carbon Dioxide 27 Anion Gap 9 BUN 48 H Creatinine 1.08 Est GFR ( Amer) > 60 Glucose 106 Calcium 8.3 L Magnesium 2.0 Total Bilirubin 0.4 AST 49 H Alkaline Phosphatase 142 H Total Protein 5.4 L Albumin 3.0 L Triglycerides 154 H Cholesterol 126.74 LDL Cholesterol Direct 76 VLDL Cholesterol 30.8 HDL Cholesterol 41 01/28/19 01/28/19 01/28/19 01:47 08:33 08:33 Creatine Kinase < 20 L CK-MB (CK-2) 2.09 Troponin I 0.156 0.117 NT-Pro-B Natriuret Pep 57586 H 01/28/19 01/28/19 01/28/19 14:45 14:45 20:30 Creatine Kinase 21 L < 20 L CK-MB (CK-2) 2.03 Troponin I 0.095 NT-Pro-B Natriuret Pep 01/28/19 20:30 Creatine Kinase CK-MB (CK-2) 1.63 Troponin I 0.086 NT-Pro-B Natriuret Pep Impressions: Chest X-Ray 01/28/19 00:43 IMPRESSION: 1. Bibasilar and left perihilar interstitial prominence which could reflect fibrosis, atelectasis or interstitial edema. 2. Stable superior vena cava stent. Assessment and Plan - Diagnosis (1) Acute congestive heart failure Qualifiers: Heart failure type: combined systolic and diastolic Qualified Code(s): I50.41 - Acute combined systolic (congestive) and diastolic (congestive) heart failure Is this a current diagnosis for this admission?: Yes Plan: Likely combined systolic and diastolic. Denies any history of CAD. 11/14/2018. Cardiac stress test: No scintigraphic evidence of Lexiscan induced myocardial ischemia. No scintigraphic evidence of microinfarction/scar. 11/13/2018. CTA Chest: No CT evidence of acute pulmonary embolism. Previously seen mediastinal masses are no longer visualized. Given history of underlying malignancy and chemoradiation patient could be developing dilated cardiomyopathy or pulmonary fibrosis. She is also high risk for DVT due to underlying malignancy. Will obtain CTA/VQ scan to rule out PE and 2D echo to rule out any underlying cardiac disease. Meanwhile continue IV diuretics, GORDY inhibitors. We will start on beta-blockers once euvolemic. Continue cardiac diet, volume restriction, daily weights and strict in and out. Uptitrate beta-blockers and GORDY as tolerated. Cardiology consulted. Pending recommendations. (2) Chronic obstructive pulmonary disease (COPD) Qualifiers: COPD type: unspecified COPD Qualified Code(s): J44.9 - Chronic obstructive pulmonary disease, unspecified Is this a current diagnosis for this admission?: Yes Plan: Does not seem to be acutely exacerbated. Not on home O2. Continue pulmonary toileting, Xopenex, Pulmicort, Atrovent, PRN BiPAP. (3) Hyperlipidemia Qualifiers: Hyperlipidemia type: mixed hyperlipidemia Qualified Code(s): E78.2 - Mixed hyperlipidemia Is this a current diagnosis for this admission?: Yes Plan: Diet and lifestyle modification recommended. Restart statins. Monitor LFTs. (4) Hypertension Qualifiers: Hypertension type: essential hypertension Qualified Code(s): I10 - Essential (primary) hypertension Is this a current diagnosis for this admission?: Yes Plan: Continue beta-blockers, GORDY, calcium channel blockers. IV hydralazine PRN. Adjust meds added. Outpatient PCP follow-up. (5) Hypothyroidism Qualifiers: Hypothyroidism type: unspecified Qualified Code(s): E03.9 - Hypothyroidism, unspecified Is this a current diagnosis for this admission?: Yes Plan: Restart levothyroxine. Thyroid function test WNL. (6) Tobacco use disorder, severe, dependence Is this a current diagnosis for this admission?: Yes Plan: Counseled on smoking cessation. Nicotine patch will be provided. (7) Diabetes Qualifiers: Diabetes mellitus type: type 2 Is this a current diagnosis for this admission?: Yes Plan: This likely induced due to chronic use of high-dose steroids. Hemoglobin A1c 8.9. Continue basal, prandial, sliding scale insulin, Accu-Chek, hypoglycemic protocol. Adjust dosage as needed.
[2019-01-29] MEDS ORDERED: DEXTROSE 50%-WATER 25 GM/50 ML DISP.SYRIN IV PRN ×2 (12:48)
[2019-01-29] MEDS ORDERED: DEXTROSE 40% GEL 15 GM TUBE PO PRN ×2 (12:48)
[2019-01-29] MEDS ORDERED: GLUCAGON,HUMAN RECOMB 1 MG INJ IM PRN (12:48)
--- NOTE | 2019-01-29 18:54 | RADIOLOGY REPORT (SQ) ---
EXAM DESCRIPTION: CT CHEST WITHOUT COMPLETED DATE/TIME: 01/29/2019 6:33 pm REASON FOR STUDY: Hi-Res:SOB ,Lung Cancer COMPARISON: 11/13/2018. TECHNIQUE: Prone and supine high resolution technique imaging performed through the lungs windowed f or lung windows. Additional focused imaging through the levels of the aortic arch, cecilia and diaphr agm. Limited evaluation of the mediastinum. All CT scanners at this facility use dose modulation, iterative reconstruction, and/or weight based d osing when appropriate to reduce radiation dose to as low as reasonably achievable (ALARA). [facility]: Dose Right [facility]: CareDose [facility]: Dose Right [facility]: Teradose 4D [facility]: Smart [employer] RADIATION DOSE: CT Rad equipment meets quality standard of care and radiation dose reduction techniq ues were employed. CTDIvol: 4.6 mGy. DLP: 128 mGy-cm. mGy. LIMITATIONS: None. FINDINGS: LUNGS AND PLEURA: Bilateral pleural effusions. Nodules in the left upper lobe, the larges t measuring 9 mm. LIMITED MEDIASTINUM: No masses. Stent in the superior vena cava. BONES: No significant findings. OTHER: No other significant finding. IMPRESSION: 1. BILATERAL PLEURAL EFFUSIONS. 2. PULMONARY NODULES. DUE TO THE USE OF A HIGH-RESOLUTION PROTOCOL, MEASUREMENT MAY BE INACCURATE DU E TO SLICE SPACING. ADDITIONALLY, SMALLER NODULES MAY BE PRESENT AND NOT VISUALIZED DUE TO THE USE O F HIGH-RESOLUTION TECHNIQUE. TECHNICAL DOCUMENTATION: JOB ID: [id number] Quality ID # [id number]: Final reports with documentation of one or more dose reduction techniques (e.g., Au tomated exposure control, adjustment of the mA and/or kV according to patient size, use of iterative reconstruction technique) 2010 [employer]- All Rights Reserved Reading location - IP/workstation name: [email or web address]
--- NOTE | 2019-01-29 21:48 | PDOC CONSULTATION ---
Consultation-Blank Consultation: CARDIOLOGY CONSULTATION by Dr. Darlyn Pitts on 01/29/2019. Patient seen at 11 AM. 60 minutes spent on this patient more than 50% of time spent in direct patient care. REASON FOR CONSULTATION: Heart failure. CONSULT REQUESTING PHYSICIAN: [facility] HISTORY OF PRESENT ILLNESS: Patient with a history of lung cancer with brain mets, with recent gamma knife surgery of brain lesions. Admitted with 3 days of nocturnal shortness of breath. With orthopnea. She denies any wheezing. She has dry cough. There is no symptoms of upper or lower respiratory tract infection. She denies any PND palpitations or chest pain or discomfort. The patient came to the emergency room and was found to have bilateral pleural effusions with a diagnosis of heart failure being made. The patient denies any fever chills or Reiger's. There is no wheezing. In November she had atypical chest pain and had a IV Lexiscan Cardiolite stress test done by [facility] which was negative for ischemia or SD. Ejection fraction was normal at that time. Note initially a pulmonary CTA was ordered but due to lack of IV access, and inability to access the patient's antecubital veins the CAT scan was changed to a high resolution CT without contrast. She does have a history of COPD, but there is no acute symptoms of exacerbation of COPD. There is no recent upper or lower respiratory tract infection. Past Medical History Cardiac Medical History: Reports: Hyperlipidema, Hypertension Denies: Atrial Fibrillation, Congestive Heart Failure, Coronary Artery Disease, DVT, Myocardial Infarction, Peripheral Vascular Disease, Pulmonary Embolism Pulmonary Medical History: Reports: Chronic Obstructive Pulmonary Disease (COPD) Denies: Asthma EENT Medical History: Denies: Cataracts, Ears - Hearing aids Neurological Medical History: Denies: Hemorrhagic CVA, Ischemic CVA, Seizures Endocrine Medical History: Reports: Hypothyroidism, Obesity Denies: Diabetes Mellitus Type 1, Diabetes Mellitus Type 2, Hyperthyroidism Renal/ Medical History: Denies: Chronic Kidney Disease, Nephrolithiasis Malignancy Medical History: Reports: Lung Cancer - With brain metastases GI Medical History: Denies: Cirrhosis, Hepatitis Musculoskeltal Medical History: Reports: Arthritis Denies: Gout Skin Medical History: Denies: Eczema, Psoriasis Psychiatric Medical History: Reports: Depression, Tobacco Dependency Denies: Alcohol Dependency, Substance Abuse Traumatic Medical History: Reports: None Hematology: Denies: Anemia, Bleeding Tendencies Infectious Medical History: Reports: None Past Surgical History Past Surgical History: Reports: Vascular Surgery - Vena cava stenting to relieve tumor obstruction, Other - Gamma knife neurosurgery for brain metastases x2 Social History Information Source: Patient Lives with: Alone Smoking Status: Current Every Day Smoker Electronic Cigarette use?: No Frequency of Alcohol Use: None Hx Recreational Drug Use: No Drugs: None Hx Prescription Drug Abuse: No - Advance Directive Resuscitation Status: Full Code Surrogate healthcare decision maker:: Sean Warren Jr. Family History Family History: COPD, Hypertension Medication/Allergy Home Medications: Amlodipine Besylate [Norvasc 5 mg Tablet] 5 mg PO Q12 11/13/18 Apixaban [Eliquis 5 mg Tablet] 5 mg PO BID 11/13/18 Aspirin [Ecotrin 81 mg EC Tablet] 81 mg PO DAILY 11/13/18 Benazepril HCl 20 mg PO Q12 11/13/18 Metoprolol Succinate [Toprol Xl 50 mg Tab.sr] 50 mg PO Q12 11/13/18 Pantoprazole Sodium 40 mg PO QAM 11/13/18 Pravastatin Sodium 20 mg PO QHS 11/13/18 Acetaminophen [Tylenol 325 mg Tablet] 650 mg PO Q4HP PRN tablet 11/14/18 Atorvastatin Calcium [Lipitor 40 mg Tablet] 40 mg PO QHS tablet 11/14/18 Ciprofloxacin HCl/Hc [Cipro HC Otic Suspension] 4 drop TOP BID #1 bottle 11/14/18 Naproxen Sodium [Naprelan] 500 mg PO BID PRN 7 Days #14 tablet.sa 11/14/18 Allergies/Adverse Reactions: codeine. Review of Systems Constitutional: ABSENT: chills, fever(s) Eyes: ABSENT: visual disturbances, other - Eye pain Ears: ABSENT: hearing changes, other - Ear pain Nose, Mouth, and Throat: ABSENT: headache(s), mouth pain, sore throat Cardiovascular: PRESENT: dyspnea on exertion, edema, orthropnea. ABSENT: chest pain, palpitations Respiratory: PRESENT: cough, dyspnea. ABSENT: sputum Gastrointestinal: ABSENT: abdominal pain, constipation, diarrhea, nausea, vomiting Genitourinary: ABSENT: dysuria, hematuria Musculoskeletal: ABSENT: back pain - The, joint swelling, muscle weakness Integumentary: ABSENT: pruritus, rash Neurological: ABSENT: confusion, convulsions, focal weakness, memory loss, syncope Psychiatric: ABSENT: anxiety, depression Endocrine: ABSENT: cold intolerance, heat intolerance Hematologic/Lymphatic: ABSENT: easy bleeding, easy bruising Allergic/Immunologic: ABSENT: seasonal rhinorrhea. Current Medications Generic Name Dose Route Start Last Admin Trade Name Freq PRN Reason Stop Dose Admin Acetaminophen 650 mg 01/28/19 04:34 Tylenol 325 Mg Tablet PO 02/27/19 04:33 Q4HP PRN pain or temp greater than 101F Al Hydrox/Mg Hydrox/Simethicone 30 ml 01/28/19 04:34 Maalox Plus Susp 30 Udcup PO 02/27/19 04:33 Q4HP PRN HEARTBURN Apixaban 5 mg 01/28/19 10:00 01/29/19 18:39 Eliquis 5 Mg Tablet PO 02/27/19 09:59 5 mg BID AUDREY Administration Aspirin 81 mg 01/30/19 10:00 Aspirin 81 Mg Chewable Tablet PO 03/01/19 09:59 DAILY AUDREY Atorvastatin Calcium 40 mg 01/28/19 22:00 01/29/19 22:48 Lipitor 40 Mg Tablet PO 02/27/19 21:59 40 mg QHS AUDREY Administration Benazepril HCl 20 mg 01/30/19 10:00 Lotensin 20 Mg Tablet PO 03/01/19 09:59 DAILY AUDREY Budesonide 0.5 mg 01/28/19 08:00 01/29/19 20:35 Pulmicort Neb 0.5 Mg/2 Ml Ampul NEB 02/27/19 07:59 0.5 mg RTBID AUDREY Administration Dextrose 12.5 gm 01/28/19 15:18 Dextrose Inj 50% Syringe (25 Gm/50 Ml) IV 02/27/19 15:17 PRN PRN FOR BG 50-69 IN ALERT PATIENT Protocol Dextrose 25 gm 01/28/19 15:18 Dextrose Inj 50% Syringe (25 Gm/50 Ml) IV 02/27/19 15:17 PRN PRN PER PROTOCOL Protocol Docusate Sodium 100 mg 01/28/19 10:00 01/29/19 10:18 Colace 100 Mg Capsule PO 02/27/19 09:59 Not Given DAILY AUDREY Famotidine 20 mg 01/28/19 10:00 01/29/19 22:48 Pepcid 20 Mg Tablet PO 02/27/19 09:59 20 mg Q12 AUDREY Administration Furosemide 20 mg 01/29/19 22:00 01/29/19 22:48 Lasix Inj/Pf 20 Mg/2 Ml Sdv IV 02/28/19 21:59 20 mg Q12 AUDREY Administration Glucagon 1 mg 01/28/19 15:18 Glucagen Inj 1 Mg Vial IM 02/27/19 15:17 PRN PRN Evaluate for BG < 70 Protocol Glucagon 1 mg 01/29/19 12:48 Glucagen Inj 1 Mg Vial IM 02/28/19 12:47 PRN PRN Evaluate for BG < 70 Protocol Glucose 15 gm 01/28/19 15:18 Glutose 40% Gel 15 Gm Tube PO 02/27/19 15:17 PRN PRN FOR BG 50-69 IN ALERT PATIENT Protocol Glucose 30 gm 01/28/19 15:18 Glutose 40% Gel 15 Gm Tube PO 02/27/19 15:17 PRN PRN FOR BG < 50 IN ALERT PATIENT Protocol Insulin Glargine 20 unit 01/29/19 22:00 01/29/19 22:47 Lantus Insulin 100 Unit/1 Ml 10 Ml SUBCUT 02/28/19 21:59 20 unit QHS AUDREY Administration Insulin Human Lispro 0 - 12 unit 01/28/19 16:00 01/29/19 22:48 Humalog Insulin 100 Unit/1 Ml 3 Ml Vial SUBCUT 02/27/19 15:59 Not Given ACHS [facility] Protocol Ipratropium [place] 0.5 mg 01/29/19 20:00 01/29/19 20:35 Atrovent 0.02% Neb 0.5 Mg/2.5 Ml Ampul NEB 02/27/19 07:59 0.5 mg [id number] AUDREY Administration Levalbuterol HCl 0.63 mg 01/28/19 04:45 Xopenex Neb 0.63 Mg/3 Ml Ampul NEB 02/27/19 04:44 RTQ2HP PRN SHORTNESS OF BREATH Levalbuterol HCl 1.25 mg 01/29/19 20:00 01/29/19 20:35 Xopenex Neb 1.25 Mg/3 Ml Ampul NEB 02/27/19 07:59 1.25 mg [id number] AUDREY Administration Magnesium Hydroxide 30 ml 01/28/19 04:34 Milk Of Magnesia 30 Ml Udcup PO 02/27/19 04:33 HSP PRN FOR CONSTIPATION Morphine Sulfate 2 mg 01/28/19 04:45 Morphine 10 Mg/Ml Inj IV 02/04/19 04:44 Q1HP PRN Acute Severe Dyspnea Nicotine 1 each 01/28/19 04:45 Nicoderm 21 Mg/24 Hr Transderm Patch TD 02/27/19 04:44 DAILYP PRN WITHDRAWAL SYMPTOMS Nitroglycerin 1 gm 01/28/19 06:00 01/29/19 23:27 Nitrol 2% Ointment 1gm Packet TP 02/27/19 05:59 Not Given Q6 AUDREY Ondansetron HCl 4 mg 01/28/19 04:34 Zofran Inj/Pf 4 Mg/2 Ml Sdv IV 02/27/19 04:33 Q6HP PRN FOR NAUSEA/VOMITING Pantoprazole Sodium 40 mg 01/28/19 06:00 01/29/19 05:[address] Tablet PO 02/27/19 05:59 40 mg Q6AM AUDREY Administration Potassium Chloride 20 meq 01/28/19 08:00 01/29/19 18:39 Klor-Con 10 Meq Capsule Er PO 02/27/19 07:59 20 meq MEALS AUDREY Administration Sodium Chloride 2.5 ml 01/28/19 06:00 01/29/19 13:33 Saline Flush 2.5 Ml Monoject Prefil Syrin IV 02/27/19 05:59 2.5 ml Q8 AUDREY Administration Discontinued Medications Generic Name Dose Route Start Last Admin Trade Name Freq PRN Reason Stop Dose Admin Albuterol 5 mg 01/28/19 00:44 01/28/19 01:13 Ventolin 0.083% Neb 2.5 Mg/3 Ml Ampul NEB 01/28/19 00:45 5 mg NOW ONE Administration Amlodipine Besylate 5 mg 01/28/19 10:00 01/29/19 10:23 Norvasc 5 Mg Tablet PO 02/27/19 09:59 Not Given Q12 [facility] Aspirin 325 mg 01/28/19 03:08 01/28/19 03:35 Aspirin 325 Mg Tablet PO 01/28/19 03:09 325 mg NOW ONE Administration Benazepril HCl 20 mg 01/28/19 10:00 01/29/19 10:23 Lotensin 20 Mg Tablet PO 02/27/19 09:59 Not Given Q12 [facility] Fludrocortisone Acetate 0.1 mg 01/29/19 11:45 01/29/19 12:22 Florinef 0.1 Mg Tablet PO 01/29/19 11:46 0.1 mg NOW ONE Administration Furosemide 40 mg 01/28/19 03:34 01/28/19 03:55 Lasix Inj/Pf 40 Mg/4 Ml Sdv IV 01/28/19 03:35 40 mg NOW ONE Administration Furosemide 40 mg 01/28/19 06:00 01/28/19 17:20 Lasix Inj/Pf 40 Mg/4 Ml Sdv IV 01/28/19 18:01 40 mg Q6 [facility] Administration Heparin Sodium (Porcine) 5,000 unit 01/28/19 06:00 Heparin Inj 5,000 Units/Ml 1 Ml Vial SUBCUT 02/27/19 05:59 Q8 [facility] Insulin Glargine 10 unit 01/28/19 22:00 01/28/19 23:05 Lantus Insulin 100 Unit/1 Ml 10 Ml SUBCUT 02/27/19 21:59 10 unit QHS AUDREY Administration Insulin Human Regular 0 - 15 unit 01/28/19 04:45 Humulin R (Pyxis) Insulin 100 Unit/Ml 3ml SUBCUT 02/27/19 04:44 ACHSP PRN PER PROTOCOL Protocol Insulin Human Regular 0 - 15 unit 01/28/19 08:00 01/28/19 12:45 Humulin R (Pyxis) Insulin 100 Unit/Ml 3ml SUBCUT 02/27/19 04:44 9 unit ACHS AUDREY Administration Protocol Ipratropium [place] 0.5 mg 01/28/19 00:44 01/28/19 01:13 Atrovent 0.02% Neb 0.5 Mg/2.5 Ml Ampul NEB 01/28/19 00:45 0.5 mg NOW ONE Administration Ipratropium [place] 0.5 mg 01/28/19 08:00 01/29/19 08:27 Atrovent 0.02% Neb 0.5 Mg/2.5 Ml Ampul NEB 02/27/19 07:59 0.5 mg RTQ8 AUDREY Administration Levalbuterol HCl 1.25 mg 01/28/19 08:00 01/29/19 08:27 Xopenex Neb 1.25 Mg/3 Ml Ampul NEB 02/27/19 07:59 1.25 mg RTQ8 AUDREY Administration Methylprednisolone Sodium Succinate 125 mg 01/28/19 00:44 01/28/19 01:50 Solu-Medrol Inj/Pf 125 Mg/2 Ml Sdv IV 01/28/19 00:45 125 mg NOW ONE Administration Metoprolol Succinate 50 mg 01/28/19 10:00 01/29/19 10:23 Toprol Xl 50 Mg Tab.Sr PO 02/27/19 09:59 50 mg Q12 AUDREY Administration Nitroglycerin 1 gm 01/28/19 03:08 01/28/19 03:35 Nitrol 2% Ointment 1gm Packet TP 01/28/19 03:09 1 gm NOW ONE Administration PHYSICAL EXAMINATION: The patient is moderate to morbidly obese. At present states his shortness of breath is much improved she is on nasal oxygen.The patient has cushingoid features. Selected Entries 01/29/19 01/29/19 11:00 11:50 Temperature 98.0 F Temperature Axillary Source Pulse Rate 91 Respiratory 18 Rate Blood Pressure 102/66 Blood Pressure 78 Mean Sitting BP 100/55 L Laying Down BP 102/66 Standing BP 93/54 BP Location Left Arm BP Position Supine O2 Sat by Pulse 99 Oximetry Oxygen Flow 2.00 Rate Oxygen Delivery Nasal Cannula Method HEAD: Head is atraumatic and normocephalic. EYES: Pupils are equal round regular reactive to light accommodation. Extraocular movements are normal, there is no conjunctival pallor, and no scleral icterus. EARS: Tympanic memb ranes are intact external auditory canals are clear. NOSE: There is no inflammation of the nasal mucous membrane there is no deviated nasal septum. MOUTH: Mucous membranes of mouth and tongue are moist, there is no ulcers in the mouth or tongue, and no bleeding from the gums. THROAT: There is no redness of the oropharynx, no exudate seen. SKIN: There is no petechia or ecchymosis. There is no rashes or lesions. NECK: Supple. There is no JVD. Carotids are equal there is no bruit. There is no lymphadenopathy. There is no goiter. Trachea central LUNGS: There is diminished air entry and prolonged expiration. Clear to auscultation bilaterally, no wheezes, rales or rhonchi. There is absent breath sounds and dullness in both bases. The rest of the lungs, on percussion there is hyperresonance although there is no chest wall tenderness HEART: S1 and S2 are heard. S1 is of normal intensity, there is no S3 or S4 gallops. There is a systolic murmur the left sternal border and the apex. There is no rub. ABDOMEN: Normoactive bowel sounds, soft, nontender, no masses, no rebound, no guarding. There is no hepatosplenomegaly. EXTREMITIES: Femorals are slightly diminished. There is no femoral bruits. Leg pulses are diminished. There is bilateral 2+ pedal edema. There is no DVT or cellulitis. There is no cyanosis or clubbing. There is no calf tenderness. NEUROLOGICAL the patient is awake alert oriented 3 with no focal deficits. PSYCHIATRIC: The patient judgment and insight are intact his affect is normal. Labs- Entire Visit 01/28/19 01/28/19 01/28/19 01:47 01:47 01:47 WBC 8.4 RBC 3.10 L Hgb 8.4 L Hct 26.7 L MCV 86 MCH 27.2 MCHC 31.6 L RDW 22.0 H Plt Count 182 Lymph % (Auto) 10.7 L [place] % (Auto) 8.2 Eos % (Auto) 0.0 Baso % (Auto) 0.1 Absolute Neuts (auto) 6.8 Absolute Lymphs (auto) 0.9 Absolute Monos (auto) 0.7 Absolute Eos (auto) 0.0 Absolute Basos (auto) 0.0 Seg Neutrophils % 81.0 H PT 15.8 H INR 1.25 Sodium 138.2 Potassium 4.0 Chloride 103 Carbon Dioxide 28 Anion Gap 7 BUN 41 H Creatinine 0.97 Est GFR ( Amer) > 60 Est GFR (MDRD) Non-Af 58 L Glucose 287 H POC Glucose Hemoglobin A1c % Calcium 8.5 Magnesium Total Bilirubin 0.5 Direct Bilirubin 0.2 Neonat Total Bilirubin Not Reportable Neonat Direct Bilirubin Not Reportable Neonat Indirect Bili Not Reportable AST 61 H ALT 48 Alkaline Phosphatase 187 H Creatine Kinase CK-MB (CK-2) Troponin I NT-Pro-B Natriuret Pep Total Protein 5.8 L Albumin 3.3 L Triglycerides Cholesterol LDL Cholesterol Direct VLDL Cholesterol HDL Cholesterol TSH Free T4 Free T3 pg/mL 01/28/19 01/28/19 01/28/19 01:47 01:47 08:32 WBC RBC Hgb Hct MCV MCH MCHC RDW Plt Count Lymph % (Auto) [place] % (Auto) Eos % (Auto) Baso % (Auto) Absolute Neuts (auto) Absolute Lymphs (auto) Absolute Monos (auto) Absolute Eos (auto) Absolute Basos (auto) Seg Neutrophils % PT INR Sodium Potassium Chloride Carbon Dioxide Anion Gap BUN Creatinine Est GFR ( Amer) Est GFR (MDRD) Non-Af Glucose POC Glucose 299 H Hemoglobin A1c % Calcium Magnesium Total Bilirubin Direct Bilirubin Neonat Total Bilirubin Neonat Direct Bilirubin Neonat Indirect Bili AST ALT Alkaline Phosphatase Creatine Kinase CK-MB (CK-2) Troponin I 0.156 NT-Pro-B Natriuret Pep 73635 H Total Protein Albumin Triglycerides Cholesterol LDL Cholesterol Direct VLDL Cholesterol HDL Cholesterol TSH 1.32 Free T4 1.18 Free T3 pg/mL 2.82 01/28/19 01/28/19 01/28/19 08:33 08:33 12:14 WBC RBC Hgb Hct MCV MCH MCHC RDW Plt Count Lymph % (Auto) [place] % (Auto) Eos % (Auto) Baso % (Auto) Absolute Neuts (auto) Absolute Lymphs (auto) Absolute Monos (auto) Absolute Eos (auto) Absolute Basos (auto) Seg Neutrophils % PT INR Sodium Potassium Chloride Carbon Dioxide Anion Gap BUN Creatinine Est GFR ( Amer) Est GFR (MDRD) Non-Af Glucose POC Glucose 316 H Hemoglobin A1c % Calcium Magnesium Total Bilirubin Direct Bilirubin Neonat Total Bilirubin Neonat Direct Bilirubin Neonat Indirect Bili AST ALT Alkaline Phosphatase Creatine Kinase < 20 L CK-MB (CK-2) 2.09 Troponin I 0.117 NT-Pro-B Natriuret Pep Total Protein Albumin Triglycerides Cholesterol LDL Cholesterol Direct VLDL Cholesterol HDL Cholesterol TSH Free T4 Free T3 pg/mL 01/28/19 01/28/19 01/28/19 14:45 14:45 16:36 WBC RBC Hgb Hct MCV MCH MCHC RDW Plt Count Lymph % (Auto) [place] % (Auto) Eos % (Auto) Baso % (Auto) Absolute Neuts (auto) Absolute Lymphs (auto) Absolute Monos (auto) Absolute Eos (auto) Absolute Basos (auto) Seg Neutrophils % PT INR Sodium Potassium Chloride Carbon Dioxide Anion Gap BUN Creatinine Est GFR ( Amer) Est GFR (MDRD) Non-Af Glucose POC Glucose 295 H Hemoglobin A1c % Calcium Magnesium Total Bilirubin Direct Bilirubin Neonat Total Bilirubin Neonat Direct Bilirubin Neonat Indirect Bili AST ALT Alkaline Phosphatase Creatine Kinase 21 L CK-MB (CK-2) 2.03 Troponin I 0.095 NT-Pro-B Natriuret Pep Total Protein Albumin Triglycerides Cholesterol LDL Cholesterol Direct VLDL Cholesterol HDL Cholesterol TSH Free T4 Free T3 pg/mL 01/28/19 01/28/19 01/28/19 20:30 20:30 20:56 WBC RBC Hgb Hct MCV MCH MCHC RDW Plt Count Lymph % (Auto) [place] % (Auto) Eos % (Auto) Baso % (Auto) Absolute Neuts (auto) Absolute Lymphs (auto) Absolute Monos (auto) Absolute Eos (auto) Absolute Basos (auto) Seg Neutrophils % PT INR Sodium Potassium Chloride Carbon Dioxide Anion Gap BUN Creatinine Est GFR ( Amer) Est GFR (MDRD) Non-Af Glucose POC Glucose 286 H Hemoglobin A1c % Calcium Magnesium Total Bilirubin Direct Bilirubin Neonat Total Bilirubin Neonat Direct Bilirubin Neonat Indirect Bili AST ALT Alkaline Phosphatase Creatine Kinase < 20 L CK-MB (CK-2) 1.63 Troponin I 0.086 NT-Pro-B Natriuret Pep Total Protein Albumin Triglycerides Cholesterol LDL Cholesterol Direct VLDL Cholesterol HDL Cholesterol TSH Free T4 Free T3 pg/mL 01/29/19 01/29/19 01/29/19 07:25 07:25 07:25 WBC 9.0 RBC 2.77 L Hgb 7.6 L Hct 23.6 L MCV 85 MCH 27.2 MCHC 32.1 RDW 22.1 H Plt Count 141 L Lymph % (Auto) 17.4 [place] % (Auto) 9.4 Eos % (Auto) 0.1 Baso % (Auto) 0.2 Absolute Neuts (auto) 6.6 Absolute Lymphs (auto) 1.6 Absolute Monos (auto) 0.8 Absolute Eos (auto) 0.0 Absolute Basos (auto) 0.0 Seg Neutrophils % 72.9 PT INR Sodium Potassium Chloride Carbon Dioxide Anion Gap BUN Creatinine Est GFR ( Amer) Est GFR (MDRD) Non-Af Glucose POC Glucose Hemoglobin A1c % 8.5 H Calcium Magnesium 2.0 Total Bilirubin Direct Bilirubin Neonat Total Bilirubin Neonat Direct Bilirubin Neonat Indirect Bili AST ALT Alkaline Phosphatase Creatine Kinase CK-MB (CK-2) Troponin I NT-Pro-B Natriuret Pep Total Protein Albumin Triglycerides 154 H Cholesterol 126.74 LDL Cholesterol Direct 76 VLDL Cholesterol 30.8 HDL Cholesterol 41 TSH Free T4 Free T3 pg/mL 01/29/19 01/29/19 01/29/19 07:25 07:49 11:51 WBC RBC Hgb Hct MCV MCH MCHC RDW Plt Count Lymph % (Auto) [place] % (Auto) Eos % (Auto) Baso % (Auto) Absolute Neuts (auto) Absolute Lymphs (auto) Absolute Monos (auto) Absolute Eos (auto) Absolute Basos (auto) Seg Neutrophils % PT INR Sodium 141.4 Potassium 4.6 Chloride 105 Carbon Dioxide 27 Anion Gap 9 BUN 48 H Creatinine 1.08 Est GFR ( Amer) > 60 Est GFR (MDRD) Non-Af 51 L Glucose 106 POC Glucose 126 H 152 H Hemoglobin A1c % Calcium 8.3 L Magnesium Total Bilirubin 0.4 Direct Bilirubin 0.2 Neonat Total Bilirubin Not Reportable Neonat Direct Bilirubin Not Reportable Neonat Indirect Bili Not Reportable AST 49 H ALT 50 Alkaline Phosphatase 142 H Creatine Kinase CK-MB (CK-2) Troponin I NT-Pro-B Natriuret Pep Total Protein 5.4 L Albumin 3.0 L Triglycerides Cholesterol LDL Cholesterol Direct VLDL Cholesterol HDL Cholesterol TSH Free T4 Free T3 pg/mL 01/29/19 01/29/19 16:09 22:44 WBC RBC Hgb Hct MCV MCH MCHC RDW Plt Count Lymph % (Auto) [place] % (Auto) Eos % (Auto) Baso % (Auto) Absolute Neuts (auto) Absolute Lymphs (auto) Absolute Monos (auto) Absolute Eos (auto) Absolute Basos (auto) Seg Neutrophils % PT INR Sodium Potassium Chloride Carbon Dioxide Anion Gap BUN Creatinine Est GFR ( Amer) Est GFR (MDRD) Non-Af Glucose POC Glucose 107 144 H Hemoglobin A1c % Calcium Magnesium Total Bilirubin Direct Bilirubin Neonat Total Bilirubin Neonat Direct Bilirubin Neonat Indirect Bili AST ALT Alkaline Phosphatase Creatine Kinase CK-MB (CK-2) Troponin I NT-Pro-B Natriuret Pep Total Protein Albumin Triglycerides Cholesterol LDL Cholesterol Direct VLDL Cholesterol HDL Cholesterol TSH Free T4 Free T3 pg/mL Chest X-Ray 01/28/19 00:43 IMPRESSION: 1. Bibasilar and left perihilar interstitial prominence which could reflect fibrosis, atelectasis or interstitial edema. 2. Stable superior vena cava stent. Chest CT 01/29/19 00:00 IMPRESSION: 1. BILATERAL PLEURAL EFFUSIONS. 2. PULMONARY NODULES. DUE TO THE USE OF A HIGH-RESOLUTION PROTOCOL, MEASUREMENT MAY BE INACCURATE DUE TO SLICE SPACING. ADDITIONALLY, SMALLER NODULES MAY BE PRESENT AND NOT VISUALIZED DUE TO THE USE OF HIGH-RESOLUTION TECHNIQUE. SINUS RHYTHM [AXR] . BORDERLINE RIGHT AXIS DEVIATION [T3WI] . ABNORMAL T, CONSIDER ISCHEMIA, DIFFUSE LEADS [LQT] . PROLONGED QT INTERVAL. RECOMMENDATIONS/IMPRESSION: 1. Congestive heart failure: Most likely diastolic heart failure. And possibly due to volume fluid retention secondary to steroids. Doubt that this is a systolic heart failure, given the fact that a month ago her LV ejection fraction by stress testing was within normal limits. But would recommend getting an echocardiogram to be sure the patient's LV function does not deteriorated in the interim. Continue Lasix until the patient's pleural effusions are resolved. 2. Shortness of breath and orthopnea most likely the effect of heart failure superimposed on the patient's COPD. 3. Lung cancer with brain mets, status post gamma knife treatment of the cerebral mets. 4. Hypertension: Blood pressure well controlled continue current medication. 5. Hypothyroidism: Continue replacement therapy. 6. Hyperlipidemia: Continue statin. 7. Relative hypotension, asymptomatic. Most likely due to chronic steroid therapy and hence we will give a dose of mineralocorticoid the patient was given 1 dose of Florinef. 8. Mild renal insufficiency: Watch the patient's BUN and creatinine and GFR and avoid nephrotoxic drugs. 9. Cushingoid appearance due to chronic steroid effect. Medications reviewed. Management plan and medical regimen discussed with the hospitalist physician taking care of the patient. Discussed with the patient and patient's daughter. Medical decision making is of high complexity. 60 minutes spent on this patient more than 50% of time spent in direct patient care. Will follow.
[2019-01-29] MEDS: INSULIN GLARGINE,HUM.REC.ANLOG 1,000 UNIT/10 ML VIAL SUBCUT SCH (22:47)
[2019-01-29] MEDS: ATORVASTATIN CALCIUM 40 MG TABLET PO SCH (22:48)
[2019-01-29] MEDS: FUROSEMIDE INJ/PF 20 MG/2 ML SDV IV SCH (22:48)
[2019-01-30] MEDS: PANTOPRAZOLE SODIUM 40 MG TABLET.DR PO SCH (05:01)
[2019-01-30] MEDS: NITROGLYCERIN 2% OINTMENT 1 GM PACKET TP SCH ×4 (05:02→23:59)
[2019-01-30 05:27] LABS: BLOOD UREA NITROGEN 49 mg/dL (7-20); CALCIUM 8.2 mg/dL (8.4-10.2); CHLORIDE 102 mmol/L (98-107); GLUCOSE 90 mg/dL (75-110); POTASSIUM 4.1 mmol/L (3.6-5.0)
[2019-01-30 05:33] LABS: ANION GAP 6 (5-19); CARBON DIOXIDE 32 mmol/L (22-30)
[2019-01-30] MEDS: BUDESONIDE NEB 0.5 MG/2 ML AMPUL NEB SCH ×2 (08:05→20:28)
[2019-01-30] MEDS: IPRATROPIUM BROMIDE 0.02% NEB 0.5 MG/2.5 ML AMPUL NEB SCH ×3 (08:05→20:28)
[2019-01-30] MEDS: LEVALBUTEROL HCL NEB 1.25 MG/3 ML AMPUL NEB SCH ×3 (08:05→20:28)
[2019-01-30] MEDS: POTASSIUM CHLORIDE 10 MEQ CAPSULE.ER PO SCH ×3 (09:28→18:08)
[2019-01-30] MEDS: DOCUSATE SODIUM 100 MG CAPSULE PO SCH (09:29)
[2019-01-30] MEDS: ASPIRIN 81 MG TABLET, CHEWABLE PO SCH (09:29)
[2019-01-30] MEDS: FAMOTIDINE 20 MG TABLET PO SCH ×2 (09:29→21:23)
[2019-01-30] MEDS: FUROSEMIDE INJ/PF 20 MG/2 ML SDV IV SCH ×2 (09:29→21:23)
[2019-01-30] MEDS: APIXABAN 5 MG TABLET PO SCH ×2 (09:29→18:08)
[2019-01-30] MEDS: INSULIN LISPRO 100 UNIT/ML 3 ML VIAL SUBCUT SCH ×4 (09:29→21:24)
[2019-01-30] MEDS ORDERED: BENAZEPRIL HCL 20 MG TABLET PO SCH (10:00)
--- NOTE | 2019-01-30 10:50 | PDOC PROGRESS REPORT ---
Subjective Progress Note for:: 01/30/19 Subjective:: SAMI FERRER is a 63 year old female who presented to the emergency room with acute onset dyspnea. She admits that she suddenly developed dyspnea a few hours prior to her presentation to the emergency room. Her moderate to severe dyspnea was constant and persistent accompanied by a nonproductive cough and orthopnea. Her dyspnea was worsened by exertion, and because of its failure to resolve she presented to the emergency room. She admits a recent gamma knife therapy for her metastatic brain lesions performed in [place]. She acknowledges swelling of her bilateral lower extremities and face due to the high-dose steroids she has taken since the gamma knife "surgery". She denies other associated or accompanying signs and symptoms. She denies prior similar episodes and she has not identified any additional aggravating or ameliorating factors for her dyspnea. In the emergency room she was found to have a BNP of 39,600 and a chest x-ray consistent with congestive heart failure. She was also noted to have ischemic changes on her EKG but no ST segment elevation. Her troponin was mildly elevated into the indeterminate zone. With these findings patient was subsequently admitted to the medical floor for further evaluation and treatment. 01/29/2019. No acute events overnight. Patient comfortably sitting in bed with supplemental oxygen, in no apparent distress, stating that she is feeling better, shortness of breath has improved, bilateral lower extremity edema is persistent, denies any fever, chills, nausea, vomiting, diarrhea, constipation or any urinary symptoms. 01/30/2019. No acute events overnight. Patient currently sitting in bed, on supplemental oxygen, stating that she is feeling much better since admission, lower extremity edema has improved, denies any fever, chills, nausea, vomiting, diarrhea, constipation or any urinary symptoms. Reason For Visit: ACUTE CHF,COPD Physical Exam Vital Signs: Temp Pulse Resp BP Pulse Ox 98.8 F 82 16 97/59 L 98 01/30/19 07:48 01/30/19 08:05 01/30/19 08:05 01/30/19 07:48 01/30/19 08:05 Intake & Output 01/29/19 01/30/19 01/31/19 06:59 06:59 06:59 Intake Total 1367 2136 Balance 1367 2136 Weight 80 kg 79 kg General appearance: PRESENT: no acute distress, well-developed, well-nourished Respiratory exam: PRESENT: clear to auscultation jany. ABSENT: rales, rhonchi, wheezes Cardiovascular exam: PRESENT: RRR. ABSENT: diastolic murmur, rubs, systolic murmur GI/Abdominal exam: PRESENT: normal bowel sounds, soft. ABSENT: distended, guarding, mass, organolmegaly, rebound, tenderness Extremities exam: PRESENT: +2 edema Neurological exam: PRESENT: alert, awake, oriented to person, oriented to place, oriented to time, oriented to situation, CN II-XII grossly intact. ABSENT: motor sensory deficit Skin exam: PRESENT: dry, intact, warm. ABSENT: cyanosis, rash Results Laboratory Results: 01/29/19 07:25 01/30/19 04:35 01/30/19 04:35 Sodium 140.3 Potassium 4.1 Chloride 102 Carbon Dioxide 32 H Anion Gap 6 BUN 49 H Creatinine 1.17 Est GFR ( Amer) 56 L Glucose 90 Calcium 8.2 L Magnesium 1.8 01/28/19 01/28/19 01/28/19 01:47 08:33 08:33 Creatine Kinase < 20 L CK-MB (CK-2) 2.09 Troponin I 0.156 0.117 NT-Pro-B Natriuret Pep [id number] H 01/28/19 01/28/19 01/28/19 14:45 14:45 20:30 Creatine Kinase 21 L < 20 L CK-MB (CK-2) 2.03 Troponin I 0.095 NT-Pro-B Natriuret Pep 01/28/19 20:30 Creatine Kinase CK-MB (CK-2) 1.63 Troponin I 0.086 NT-Pro-B Natriuret Pep Impressions: Chest X-Ray 01/28/19 00:43 IMPRESSION: 1. Bibasilar and left perihilar interstitial prominence which could reflect fibrosis, atelectasis or interstitial edema. 2. Stable superior vena cava stent. Chest CT 01/29/19 00:00 IMPRESSION: 1. BILATERAL PLEURAL EFFUSIONS. 2. PULMONARY NODULES. DUE TO THE USE OF A HIGH-RESOLUTION PROTOCOL, MEASUREMENT MAY BE INACCURATE DUE TO SLICE SPACING. ADDITIONALLY, SMALLER NODULES MAY BE PRESENT AND NOT VISUALIZED DUE TO THE USE OF HIGH-RESOLUTION TECHNIQUE. Assessment and Plan - Diagnosis (1) Acute congestive heart failure Qualifiers: Heart failure type: combined systolic and diastolic Qualified Code(s): I50.41 - Acute combined systolic (congestive) and diastolic (congestive) heart failure Is this a current diagnosis for this admission?: Yes Plan: Likely combined systolic and diastolic. Denies any history of CAD. History of SVC syndrome with multiple stent placements. On Xarelto. 11/14/2018. Cardiac stress test: No scintigraphic evidence of Lexiscan induced myocardial ischemia. No scintigraphic evidence of microinfarction/scar. 11/13/2018. CTA Chest: No CT evidence of acute pulmonary embolism. Previously seen mediastinal masses are no longer visualized. Initially was going to have a CTA chest or VQ scan to rule out PE but as per ranch cook note patient may not have a PE as she is on Xarelto and a CT chest without contrast was done which showed resolution of mediastinal mass and superior vena cava appears to be patent. Pending 2D echo. Meanwhile continue IV diuretics, GORDY inhibitors. We will start on beta-blockers once euvolemic. Continue cardiac diet, volume restriction, daily weights and strict in and out. Uptitrate beta-blockers and GORDY as tolerated. Cardiology consulted. Recommendations noted. (2) Chronic obstructive pulmonary disease (COPD) Qualifiers: COPD type: unspecified COPD Qualified Code(s): J44.9 - Chronic obstructive pulmonary disease, unspecified Is this a current diagnosis for this admission?: Yes Plan: Does not seem to be acutely exacerbated. Not on home O2. Continue pulmonary toileting, Xopenex, Pulmicort, Atrovent, PRN BiPAP. (3) Hyperlipidemia Qualifiers: Hyperlipidemia type: mixed hyperlipidemia Qualified Code(s): E78.2 - Mixed hyperlipidemia Is this a current diagnosis for this admission?: Yes Plan: Diet and lifestyle modification recommended. Restart statins. Monitor LFTs. (4) Hypertension Qualifiers: Hypertension type: essential hypertension Qualified Code(s): I10 - Essential (primary) hypertension Is this a current diagnosis for this admission?: Yes Plan: Pressure low normal. Asymptomatic. Decrease benazepril to 10 mg p.o. daily from 20 mg p.o. daily. Continue IV Lasix and IV hydralazine PRN. Continue monitoring vitals, adjust meds as needed. Outpatient PCP follow-up. (5) Hypothyroidism Qualifiers: Hypothyroidism type: unspecified Qualified Code(s): E03.9 - Hypothyroidism, unspecified Is this a current diagnosis for this admission?: Yes Plan: Restart levothyroxine. Thyroid function test WNL. (6) Tobacco use disorder, severe, dependence Is this a current diagnosis for this admission?: Yes Plan: Counseled on smoking cessation. Nicotine patch will be provided. (7) Diabetes Qualifiers: Diabetes mellitus type: type 2 Is this a current diagnosis for this admission?: Yes Plan: This likely induced due to chronic use of high-dose steroids. Hemoglobin A1c 8.9. Continue basal, prandial, sliding scale insulin, Accu-Chek, hypoglycemic protocol. Adjust dosage as needed.
--- NOTE | 2019-01-30 16:12 | XCELERA REPORT ---
[address] [address] Transthoracic Echocardiogram Report Name: SAMI FERRER Age: 63 yrs Gender: Female : 1955 Patient Status: Inpatient Patient Location: [address] [place], [place] [address] Study Date: 01/30/2019 10:10 AM Height: 65 in Weight: 176 lb BSA: 1.9 m2 Procedure: A two-dimensional transthoracic echocardiogram with color flow and Doppler was performed. The study was technically limited with all images being suboptimal in quality. Reason For Study: SOB /CHF /Pulmonary Hypertension History: SOB /CHF /Pulmonary Hypertension. Ordering Physician: DARLYN GREENFIELD Performed By: Mary Mcgarry Interpretation Summary The left ventricle is normal in size. There is normal left ventricular wall thickness. LV EF is 65% Left ventricular systolic function is normal. Doppler measurements suggest impaired left ventricular relaxation, which is associated with grade I/IV or mild diastolic dysfunction The left ventricular wall motion is normal. There is no thrombus. Probably no ASD ,VSD , or PFO seen. The right ventricle is grossly normal size. The left atrial size is normal. There is no evidence of mitral valve prolapse. There is no vegetation seen on the mitral valve. There is no mitral valve stenosis. There is a mild to moderate amount of mitral regurgitation There is no aortic valvular vegetation. There is no aortic valve stenosis There is no LVOT obstruction. There is a trace to mild amount of aortic regurgitation There is no tricuspid stenosis. There is a mild amount of tricuspid regurgitation There is mild pulmonary hypertension by echo There is no pulmonic valvular stenosis. There is a trace amount of pulmonic regurgitation The aortic root is normal size. The inferior vena cava appeared normal and decreased > 50% with respiration (RAP 5-10 mmHg) There is no pericardial effusion. MMode/2D Measurements & Calculations RVDd: 3.6 cm LVIDd: 5.0 cm FS: 39.1 % Ao root diam: 2.8 cm IVSd: 0.93 cm LVIDs: 3.0 cm EDV(Teich): 118.1 ml Ao root area: 6.1 cm2 LVPWd: 1.0 cm ESV(Teich): 36.3 ml EF(Teich): 69.3 % Doppler Measurements & Calculations MV E max tuan: MV dec slope: Ao V2 max: AI max tuan: 71.9 cm/sec 479.6 cm/sec2 140.4 cm/sec 288.9 cm/sec MV A max tuan: MV dec time: Ao max PG: AI max P.4 mmHg 97.0 cm/sec 0.15 sec 7.9 mmHg AI dec slope: MV E/A: 0.74 191.4 cm/sec2 AI P1/2t: 442.0 msec LV V1 max PG: PA V2 max: TR max tuan: Pulm Sys Tuan: 3.6 mmHg 75.8 cm/sec 274.6 cm/sec 80.9 cm/sec LV V1 max: PA max P.3 mmHg TR max PG: Pulm Vail Tuan: 94.8 cm/sec 30.2 mmHg 56.5 cm/sec Pulm A Revs Tuan: 22.9 cm/sec Pulm A Revs Dur: 0.09 sec Pulm S/D: 1.4 Left Ventricle The left ventricle is normal in size. There is normal left ventricular wall thickness. LV EF is 65%. Left ventricular systolic function is normal. Doppler measurements suggest impaired left ventricular relaxation, which is associated with grade I/IV or mild diastolic dysfunction. The left ventricular wall motion is normal. There is no thrombus. Probably no ASD ,VSD , or PFO seen. Right Ventricle The right ventricle is grossly normal size. Atria The right atrium is normal. The left atrial size is normal. Mitral Valve There is no evidence of mitral valve prolapse. There is no vegetation seen on the mitral valve. There is no mitral valve stenosis. There is a mild to moderate amount of mitral regurgitation. Aortic Valve There is no aortic valvular vegetation. There is no aortic valve stenosis. There is no LVOT obstruction. There is a trace to mild amount of aortic regurgitation. Tricuspid Valve There is no tricuspid stenosis. There is a mild amount of tricuspid regurgitation. There is mild pulmonary hypertension by echo. RVSP is 35 to 40 mm of Hg , with RA mean of 5 to 10. Pulmonic Valve There is no pulmonic valvular stenosis. There is a trace amount of pulmonic regurgitation. Great Vessels The aortic root is normal size. The inferior vena cava appeared normal and decreased > 50% with respiration (RAP 5-10 mmHg). Effusions There is no pericardial effusion. : DARLYN GREENFIELD Lakshmi
[2019-01-30] MEDS: ATORVASTATIN CALCIUM 40 MG TABLET PO SCH (21:23)
[2019-01-30] MEDS: INSULIN GLARGINE,HUM.REC.ANLOG 1,000 UNIT/10 ML VIAL SUBCUT SCH (21:24)
[2019-01-31] MEDS: PANTOPRAZOLE SODIUM 40 MG TABLET.DR PO SCH (05:19)
[2019-01-31 05:23] LABS: ABSOLUTE MONOCYTES (AUTO) 0.6 10^3/uL (0.1-1.4); ABSOLUTE NEUT (AUTO) 5.4 10^3/uL (1.7-8.2); EOSINOPHILS % (AUTO) 0.5 % (0-6); LYMPHOCYTES % (AUTO) 13.7 % (13-45); MEAN CORPUSCULAR HEMOGLOBIN 26.8 pg (27.0-33.4); MEAN CORPUSCULAR HGB CONC 31.9 g/dL (32.0-36.0); MEAN CORPUSCULAR VOLUME 84 fl (80-97); MONOCYTES % (AUTO) 8.5 % (3-13); PLATELET COUNT 143 10^3/uL (150-450); RED BLOOD COUNT 2.86 10^6/uL (3.72-5.28); RED CELL DISTRIBUTION WIDTH 21.9 % (11.5-14.0); SEGMENTED NEUTROPHILS % (AUTO) 77.3 % (42-78); TOTAL CELLS COUNTED % (AUTO) 100 %
[2019-01-31 05:43] LABS: HEMOGLOBIN 7.7 g/dL (12.0-15.5)
[2019-01-31 05:44] LABS: ANION GAP 6 (5-19); BLOOD UREA NITROGEN 40 mg/dL (7-20); CALCIUM 8.6 mg/dL (8.4-10.2); CARBON DIOXIDE 33 mmol/L (22-30); CHLORIDE 98 mmol/L (98-107); GLUCOSE 96 mg/dL (75-110); POTASSIUM 4.3 mmol/L (3.6-5.0)
[2019-01-31] MEDS: NITROGLYCERIN 2% OINTMENT 1 GM PACKET TP SCH ×3 (07:06→19:00)
[2019-01-31] MEDS: INSULIN LISPRO 100 UNIT/ML 3 ML VIAL SUBCUT SCH ×4 (08:22→22:16)
[2019-01-31 09:08] LABS: ABSOLUTE RETICS # 0.151 10^6/uL (0.028-0.122); RETICULOCYTE COUNT (AUTO) 5.22 % (0.66-2.85)
[2019-01-31] MEDS: LEVALBUTEROL HCL NEB 1.25 MG/3 ML AMPUL NEB SCH ×3 (09:18→20:18)
[2019-01-31] MEDS: IPRATROPIUM BROMIDE 0.02% NEB 0.5 MG/2.5 ML AMPUL NEB SCH ×3 (09:18→20:18)
[2019-01-31] MEDS: BUDESONIDE NEB 0.5 MG/2 ML AMPUL NEB SCH ×2 (09:18→20:18)
[2019-01-31 09:28] LABS: IRON(TIBC) 51.9 ug/dL (37-170)
[2019-01-31] MEDS: ASPIRIN 81 MG TABLET, CHEWABLE PO SCH (10:27)
[2019-01-31] MEDS: POTASSIUM CHLORIDE 10 MEQ CAPSULE.ER PO SCH ×3 (10:27→18:00)
[2019-01-31] MEDS: DOCUSATE SODIUM 100 MG CAPSULE PO SCH (10:28)
[2019-01-31] MEDS: APIXABAN 5 MG TABLET PO SCH ×2 (10:29→19:06)
[2019-01-31] MEDS: FUROSEMIDE INJ/PF 20 MG/2 ML SDV IV SCH (10:29)
[2019-01-31] MEDS: BENAZEPRIL HCL 20 MG TABLET PO SCH (10:38)
[2019-01-31] MEDS: FAMOTIDINE 20 MG TABLET PO SCH ×2 (10:40→22:15)
--- NOTE | 2019-01-31 15:19 | PDOC PROGRESS REPORT ---
Subjective Progress Note for:: 01/31/19 Subjective:: Assumed care today. Reviewed chart and course. This is a patient who was admitted for acute CHF. No acute event overnight. Patient says she continues to do well. She denies chest pain or shortness of breath. Her pedal edema continue to improve. She is saturating well on 2 L of nasal cannula. She reports that her shortness of breath and bipedal swelling started after she was placed on steroids for 30 days last month. She did say that she was placed on another week of steroids after she had a gamma knife therapy last Wednesday. However she says that she only took a day of the last steroid prescription because she felt that her pedal edema and shortness of breath were from the steroids. Reason For Visit: ACUTE CHF,COPD Physical Exam Vital Signs: Temp Pulse Resp BP Pulse Ox 98.5 F 109 H 16 113/58 L 98 01/31/19 12:00 01/31/19 14:10 01/31/19 14:10 01/31/19 12:00 01/31/19 14:10 Intake & Output 01/30/19 01/31/19 02/01/19 06:59 06:59 06:59 Intake Total 2136 800 Balance 2136 800 Weight 174 lb 2.643 oz 166 lb 14.239 oz General appearance: PRESENT: no acute distress, well-developed, well-nourished Head exam: PRESENT: atraumatic, normocephalic Eye exam: PRESENT: conjunctiva pink, EOMI, PERRLA. ABSENT: scleral icterus Ear exam: PRESENT: normal external ear exam Mouth exam: PRESENT: moist, tongue midline Neck exam: ABSENT: carotid bruit, JVD, lymphadenopathy, thyromegaly Respiratory exam: PRESENT: clear to auscultation jany. ABSENT: rales, rhonchi, wheezes Cardiovascular exam: PRESENT: RRR. ABSENT: diastolic murmur, rubs, systolic murmur Pulses: PRESENT: normal dorsalis pedis pul GI/Abdominal exam: PRESENT: normal bowel sounds, soft. ABSENT: distended, gua rding, mass, organolmegaly, rebound, tenderness Rectal exam: PRESENT: deferred Extremities exam: PRESENT: +1 edema Neurological exam: PRESENT: alert, awake, oriented to person, oriented to place, oriented to time, oriented to situation, CN II-XII grossly intact. ABSENT: motor sensory deficit Results Laboratory Results: 01/31/19 04:17 01/31/19 04:17 01/31/19 01/31/19 01/31/19 04:17 04:17 04:17 WBC 7.0 RBC 2.86 L Hgb 7.7 L Hct 24.0 L MCV 84 MCH 26.8 L MCHC 31.9 L RDW 21.9 H Plt Count 143 L Seg Neutrophils % 77.3 Retic Count (auto) 5.22 H Sodium 136.8 L Potassium 4.3 Chloride 98 Carbon Dioxide 33 H Anion Gap 6 BUN 40 H Creatinine 1.39 H Est GFR ( Amer) 46 L Glucose 96 Calcium 8.6 Magnesium 1.8 Iron TIBC % Saturation Ferritin Vitamin B12 Folate 01/31/19 04:17 WBC RBC Hgb Hct MCV MCH MCHC RDW Plt Count Seg Neutrophils % Retic Count (auto) Sodium Potassium Chloride Carbon Dioxide Anion Gap BUN Creatinine Est GFR ( Amer) Glucose Calcium Magnesium Iron 51.9 TIBC 363 % Saturation 14 Ferritin 42.30 Vitamin B12 321.0 Folate 12.40 01/28/19 01/28/19 01/28/19 01:47 08:33 08:33 Creatine Kinase < 20 L CK-MB (CK-2) 2.09 Troponin I 0.156 0.117 NT-Pro-B Natriuret Pep [id number] H 01/28/19 01/28/19 01/28/19 14:45 14:45 20:30 Creatine Kinase 21 L < 20 L CK-MB (CK-2) 2.03 Troponin I 0.095 NT-Pro-B Natriuret Pep 01/28/19 20:30 Creatine Kinase CK-MB (CK-2) 1.63 Troponin I 0.086 NT-Pro-B Natriuret Pep Impressions: Chest X-Ray 01/28/19 00:43 IMPRESSION: 1. Bibasilar and left perihilar interstitial prominence which could reflect fibrosis, atelectasis or interstitial edema. 2. Stable superior vena cava stent. Chest CT 01/29/19 00:00 IMPRESSION: 1. BILATERAL PLEURAL EFFUSIONS. 2. PULMONARY NODULES. DUE TO THE USE OF A HIGH-RESOLUTION PROTOCOL, MEASUREMENT MAY BE INACCURATE DUE TO SLICE SPACING. ADDITIONALLY, SMALLER NODULES MAY BE PRESENT AND NOT VISUALIZED DUE TO THE USE OF HIGH-RESOLUTION TECHNIQUE. Assessment and Plan - Diagnosis (1) Acute congestive heart failure Qualifiers: Heart failure type: combined systolic and diastolic Qualified Code(s): I50.41 - Acute combined systolic (congestive) and diastolic (congestive) heart failure Is this a current diagnosis for this admission?: Yes Plan: This is likely secondary to fluid overload/retention secondary to steroid therapy. Echocardiogram shows normal EF and grade 1 diastolic dysfunction. As mentioned, patient's symptoms recently developed after she was placed initially on a one-month course of steroids. She continues to improve. We will wean her off the O2. We will switch IV Lasix to p.o. Anticipate discharge in the next 24 hours if she continues to do well. - Time Time Spent with patient: 25-34 minutes
[2019-01-31] MEDS: ATORVASTATIN CALCIUM 40 MG TABLET PO SCH (22:15)
[2019-01-31] MEDS: INSULIN GLARGINE,HUM.REC.ANLOG 1,000 UNIT/10 ML VIAL SUBCUT SCH (22:15)
[2019-02-01] MEDS: NITROGLYCERIN 2% OINTMENT 1 GM PACKET TP SCH ×3 (00:29→14:31)
[2019-02-01] MEDS: PANTOPRAZOLE SODIUM 40 MG TABLET.DR PO SCH (05:57)
[2019-02-01] MEDS: INSULIN LISPRO 100 UNIT/ML 3 ML VIAL SUBCUT SCH ×2 (08:32→12:00)
--- NOTE | 2019-02-01 08:50 | RADIOLOGY REPORT (SQ) ---
EXAM DESCRIPTION: CHEST 2 VIEWS COMPLETED DATE/TIME: 02/01/2019 8:41 am REASON FOR STUDY: CHF/Lung Cancer COMPARISON: 01/28/2019 EXAM PARAMETERS: NUMBER OF VIEWS: two views TECHNIQUE: Digital Frontal and Lateral radiographic views of the chest acquired. RADIATION DOSE: NA LIMITATIONS: none FINDINGS: LUNGS AND PLEURA: No opacities, masses or pneumothorax. No pleural effusion. MEDIASTINUM AND HILAR STRUCTURES: No masses or contour abnormalities. HEART AND VASCULAR STRUCTURES: Heart normal size. No evidence for failure. BONES: No acute findings. HARDWARE: SVC stent remains in place. OTHER: No other significant finding. IMPRESSION: NO ACUTE RADIOGRAPHIC FINDING IN THE CHEST. TECHNICAL DOCUMENTATION: JOB ID: [id number] [employer]- All Rights Reserved Reading location - IP/workstation name: [email or web address]
[2019-02-01] MEDS: IPRATROPIUM BROMIDE 0.02% NEB 0.5 MG/2.5 ML AMPUL NEB SCH ×2 (09:03→14:05)
[2019-02-01] MEDS: BUDESONIDE NEB 0.5 MG/2 ML AMPUL NEB SCH (09:04)
[2019-02-01] MEDS: LEVALBUTEROL HCL NEB 1.25 MG/3 ML AMPUL NEB SCH ×2 (09:04→14:05)
[2019-02-01] MEDS: POTASSIUM CHLORIDE 10 MEQ CAPSULE.ER PO SCH ×2 (09:14→13:00)
[2019-02-01] MEDS: APIXABAN 5 MG TABLET PO SCH (09:14)
[2019-02-01] MEDS: ASPIRIN 81 MG TABLET, CHEWABLE PO SCH (09:14)
[2019-02-01] MEDS: DOCUSATE SODIUM 100 MG CAPSULE PO SCH (09:15)
[2019-02-01] MEDS: BENAZEPRIL HCL 20 MG TABLET PO SCH (09:19)
[2019-02-01] MEDS: FAMOTIDINE 20 MG TABLET PO SCH (09:20)
[2019-02-01 11:33] LABS: ANION GAP 12 (5-19); BLOOD UREA NITROGEN 34 mg/dL (7-20); CALCIUM 9.2 mg/dL (8.4-10.2); CARBON DIOXIDE 26 mmol/L (22-30); CHLORIDE 103 mmol/L (98-107); GLUCOSE 101 mg/dL (75-110); POTASSIUM 4.8 mmol/L (3.6-5.0)
[2019-02-01 12:27] VITALS: BP 114/41
--- NOTE | 2019-02-01 16:10 | Progress Note ---
Provider Note Provider Note: CARDIOLOGY PROGRESS NOTE by Dr. Darlyn Gray on 01/31/2019. SUBJECTIVE: The patient denies any chest pain or discomfort. There is no shortness of breath. There is no PND orthopnea. The leg edema is much improved. There is no arrhythmia seen on the monitor. There is no TIA CVA symptoms. There is no bleeding on Eliquis. PHYSICAL EXAMINATION: The patient mildly overweight but in no acute distress. Selected Entries 01/31/19 16:03 Temperature 98.6 F Temperature Oral Source Pulse Rate 113 H Respiratory 15 Rate Blood Pressure 92/46 L Blood Pressure 61 Mean BP Location Left Arm BP Position Supine O2 Sat by Pulse 95 Oximetry Oxygen Delivery Room Air Method HEAD: Head is atraumatic and normocephalic. EYES: Pupils are equal round regular reactive to light accommodation. Extraocular movements are normal, there is no conjunctival pallor, and no scleral icterus. EARS: Tympanic membranes are intact external auditory canals are clear. NOSE: There is no inflammation of the nasal mucous membrane there is no deviated nasal septum. MOUTH: Mucous membranes of mouth and tongue are moist, there is no ulcers in the mouth or tongue, and no bleeding from the gums. THROAT: There is no redness of the oropharynx, no exudate seen. SKIN: There is no petechia or ecchymosis. There is no rashes or lesions. NECK: Supple. There is no JVD. Carotids are equal there is no bruit. There is no lymphadenopathy. There is no goiter. Trachea central LUNGS: There is diminished air entry and prolonged expiration. Clear to auscultation bilaterally, no wheezes, rales or rhonchi. There is good air entry in both bases without any dullness..Although there is no chest wall tenderness HEART: S1 and S2 are heard. S1 is of normal intensity, there is no S3 or S4 gallops. There is a systolic murmur the left sternal border and the apex. There is no rub. ABDOMEN: Normoactive bowel sounds, soft, nontender, no masses, no rebound, no guarding. There is no hepatosplenomegaly. EXTREMITIES: Femorals are slightly diminished. There is no femoral bruits. Leg pulses are diminished. There is bilateral trace pedal edema. There is no DVT or cellulitis. There is no cyanosis or clubbing. There is no calf tenderness. NEUROLOGICAL the patient is awake alert oriented 3 with no focal deficits. PSYCHIATRIC: The patient judgment and insight are intact his affect is normal. Labs- All tests 24 hr 01/31/19 01/31/19 01/31/19 04:17 04:17 04:17 WBC 7.0 RBC 2.86 L Hgb 7.7 L Hct 24.0 L MCV 84 MCH 26.8 L MCHC 31.9 L RDW 21.9 H Plt Count 143 L Lymph % (Auto) 13.7 Price % (Auto) 8.5 Eos % (Auto) 0.5 Baso % (Auto) 0.0 Reticulocyte # 0.151 H Absolute Neuts (auto) 5.4 Absolute Lymphs (auto) 1.0 Absolute Monos (auto) 0.6 Absolute Eos (auto) 0.0 Absolute Basos (auto) 0.0 Seg Neutrophils % 77.3 Retic Count (auto) 5.22 H Sodium 136.8 L Potassium 4.3 Chloride 98 Carbon Dioxide 33 H Anion Gap 6 BUN 40 H Creatinine 1.39 H Est GFR ( Amer) 46 L Est GFR (MDRD) Non-Af 38 L Glucose 96 POC Glucose Calcium 8.6 Magnesium 1.8 Iron TIBC % Saturation Ferritin Vitamin B12 Folate 01/31/19 01/31/19 01/31/19 04:17 07:34 12:08 WBC RBC Hgb Hct MCV MCH MCHC RDW Plt Count Lymph % (Auto) Price % (Auto) Eos % (Auto) Baso % (Auto) Reticulocyte # Absolute Neuts (auto) Absolute Lymphs (auto) Absolute Monos (auto) Absolute Eos (auto) Absolute Basos (auto) Seg Neutrophils % Retic Count (auto) Sodium Potassium Chloride Carbon Dioxide Anion Gap BUN Creatinine Est GFR ( Amer) Est GFR (MDRD) Non-Af Glucose POC Glucose 120 H 119 H Calcium Magnesium Iron 51.9 TIBC 363 % Saturation 14 Ferritin 42.30 Vitamin B12 321.0 Folate 12.40 01/31/19 16:06 WBC RBC Hgb Hct MCV MCH MCHC RDW Plt Count Lymph % (Auto) Price % (Auto) Eos % (Auto) Baso % (Auto) Reticulocyte # Absolute Neuts (auto) Absolute Lymphs (auto) Absolute Monos (auto) Absolute Eos (auto) Absolute Basos (auto) Seg Neutrophils % Retic Count (auto) Sodium Potassium Chloride Carbon Dioxide Anion Gap BUN Creatinine Est GFR ( Amer) Est GFR (MDRD) Non-Af Glucose POC Glucose 146 H Calcium Magnesium Iron TIBC % Saturation Ferritin Vitamin B12 Folate Chest X-Ray 01/28/19 00:43 IMPRESSION: 1. Bibasilar and left perihilar interstitial prominence which could reflect fibrosis, atelectasis or interstitial edema. 2. Stable superior vena cava stent. Chest CT 01/29/19 00:00 IMPRESSION: 1. BILATERAL PLEURAL EFFUSIONS. 2. PULMONARY NODULES. DUE TO THE USE OF A HIGH-RESOLUTION PROTOCOL, MEASUREMENT MAY BE INACCURATE DUE TO SLICE SPACING. ADDITIONALLY, SMALLER NODULES MAY BE PRESENT AND NOT VISUALIZED DUE TO THE USE OF HIGH-RESOLUTION TECHNIQUE. RECOMMENDATIONS/IMPRESSION: 1. Congestive heart failure: Most likely diastolic heart failure. And possibly due to volume fluid retention secondary to steroids. Doubt that this is a systolic heart failure, given the fact that a month ago her LV ejection fraction by stress testing was within normal limits. But would recommend getting an echocardiogram to be sure the patient's LV function does not deteriorated in the interim. Continue Lasix until the patient's pleural effusions are resolved. Will check chest x-ray in a.m. Would recommend decrease the patient's Lasix dose 2. Shortness of breath and orthopnea most likely the effect of heart failure superimposed on the patient's COPD. 3. Lung cancer with brain mets, status post gamma knife treatment of the cerebral mets. 4. Hypertension: Blood pressure well controlled continue current medication. 5. Hypothyroidism: Continue replacement therapy. 6. Hyperlipidemia: Continue statin. 7. Relative hypotension, asymptomatic. Most likely due to chronic steroid therapy and hence we will give a dose of mineralocorticoid the patient was given 1 dose of Florinef. 8. Mild renal insufficiency: Watch the patient's BUN and creatinine and GFR and avoid nephrotoxic drugs. 9. Cushingoid appearance due to chronic steroid effect. 10. History of multiple stents in the S VC. Continue Eliquis 11. History of mediastinal mass: Resolved on current CT. Medications reviewed. Management plan and medication regimen discussed with attending physician on the case. Medical decision making is of moderate complexity. 40 minutes spent on this patient with more than 50% time spent in direct patient care. Will check chest x-ray in a.m.
--- NOTE | 2019-02-02 17:26 | PDOC DISCHARGE SUMMARY ---
Impression - Admit/DC Date/PCP Admission Date/Primary Care Provider: 01/28/19 05:01 MILTON PALENCIA PA-C Discharge Date: 02/01/19 - Discharge Diagnosis (1) Acute congestive heart failure Is this a current diagnosis for this admission?: Yes (2) Fluid overload Is this a current diagnosis for this admission?: Yes (3) Chronic obstructive pulmonary disease (COPD) Is this a current diagnosis for this admission?: Yes (4) Hypertension Is this a current diagnosis for this admission?: Yes (5) Hypothyroidism Is this a current diagnosis for this admission?: Yes - Additional Information Resuscitation Status: Full Code Discharge Diet: Cardiac, Diabetic Discharge Activity: Activity As Tolerated, Balance Activity w/Rest, Weigh Daily Referrals: MILTON PALENCIA PA-C [Primary Care Provider] - 02/08/19 3:30 pm Prescriptions: Furosemide [Lasix 20 mg Tablet] 20 mg PO QAM 4 Days #4 tablet Home Medications: Apixaban [Eliquis 5 mg Tablet] 5 mg PO Q12 01/28/19 Insulin Aspart [Novolog Flexpen] 0 units SQ .SLIDING SCALE 01/28/19 Insulin Glargine,Hum.rec.anlog [Lantus Insulin 100 Unit/1 ml 10 ml] 20 unit SQ QHS 01/28/19 Pantoprazole Sodium [Protonix [address] Tablet] 40 mg PO DAILY 01/28/19 Pravastatin Sodium [Pravachol] 20 mg PO QHS 01/28/19 Furosemide [Lasix 20 mg Tablet] 20 mg PO QAM 4 Days #4 tablet 02/01/19 History of Present Illiness History of Present Illness: Admitting hospitalist's H&P: SAMI FERRER is a 63 year old female who presented to the emergency room with acute onset dyspnea. She admits that she suddenly developed dyspnea a few hours prior to her presentation to the emergency room. Her moderate to severe dyspnea was constant and persistent accompanied by a nonproductive cough and orthopnea. Her dyspnea was worsened by exertion, and because of its failure to resolve she presented to the emergency room. She admits a recent gamma knife therapy for her metastatic brain lesions performed in [place]. She acknowledges swelling of her bilateral lower extremities and face due to the high-dose steroids she has taken since the gamma knife "surgery". She denies other associated or accompanying signs and symptoms. She denies prior similar episodes and she has not identified any additional aggravating or ameliorating factors for her dyspnea. In the emergency room she was found to have a BNP of 39,600 and a chest x-ray consistent with congestive heart failure. She was also noted to have ischemic changes on her EKG but no ST segment elevation. Her troponin was mildly elevated into the indeterminate zone. With these findings patient was subsequently admitted to the medical floor for further evaluation and treatment. Hospital Course Hospital Course: This is a patient who was admitted for acute CHF. She does not have a prior diagnosis of CHF. She was started on IV Lasix. She reports that her shortness of breath and bipedal swelling started after she was placed on steroids for 30 days last month. She did say that she was placed on another week of steroids after she had a gamma knife therapy last Wednesday. However she says that she only took a day of the last steroid prescription because she felt that her pedal edema and shortness of breath were from the steroids. Echocardiogram was done which showed normal EF and grade 1 diastolic dysfunction. Her acute CHF is likely secondary to fluid overload/retention secondary to steroid intake. She significantly improved. She was weaned off O2 and was able to ambulate the hallway on room air without any acute issue or desaturation. Repeat chest x-ray showed resolution of congestion. Her leg swelling also significantly improve and was very minimal on day of discharge. She will be prescribed a short course of Lasix. Physical Exam Vital Signs: Temp Pulse Resp BP Pulse Ox 98.0 F 105 H 16 114/41 L 96 02/01/19 10:57 02/01/19 14:05 02/01/19 14:05 02/01/19 10:57 02/01/19 14:05 Intake & Output 02/01/19 02/02/19 02/03/19 06:59 06:59 06:59 Intake Total 560 480 Balance 560 480 Weight 162 lb 11.218 oz General appearance: PRESENT: no acute distress, well-developed, well-nourished Head exam: PRESENT: atraumatic, normocephalic Eye exam: PRESENT: conjunctiva pink, EOMI, PERRLA. ABSENT: scleral icterus Ear exam: PRESENT: normal external ear exam Mouth exam: PRESENT: moist, tongue midline Neck exam: ABSENT: carotid bruit, JVD, lymphadenopathy, thyromegaly Respiratory exam: PRESENT: clear to auscultation jany. ABSENT: rales, rhonchi, wheezes Cardiovascular exam: PRESENT: RRR. ABSENT: diastolic murmur, rubs, systolic murmur Pulses: PRESENT: normal dorsalis pedis pul GI/Abdominal exam: PRESENT: normal bowel sounds, soft. ABSENT: distended, guarding, mass, organolmegaly, rebound, tenderness Rectal exam: PRESENT: deferred Extremities exam: PRESENT: +1 edema Neurological exam: PRESENT: alert, awake, oriented to person, oriented to place, oriented to time, oriented to situation, CN II-XII grossly intact. ABSENT: motor sensory deficit Results Laboratory Results: WBC 7.0 10^3/uL (4.0-10.5) 01/31/19 04:17 RBC 2.86 10^6/uL (3.72-5.28) L 01/31/19 04:17 Hgb 7.7 g/dL (12.0-15.5) L 01/31/19 04:17 Hct 24.0 % (36.0-47.0) L 01/31/19 04:17 MCV 84 fl (80-97) 01/31/19 04:17 MCH 26.8 pg (27.0-33.4) L 01/31/19 04:17 MCHC 31.9 g/dL (32.0-36.0) L 01/31/19 04:17 RDW 21.9 % (11.5-14.0) H 01/31/19 04:17 Plt Count 143 10^3/uL (150-450) L 01/31/19 04:17 Lymph % (Auto) 13.7 % (13-45) 01/31/19 04:17 Ellis % (Auto) 8.5 % (3-13) 01/31/19 04:17 Eos % (Auto) 0.5 % (0-6) 01/31/19 04:17 Baso % (Auto) 0.0 % (0-2) 01/31/19 04:17 Reticulocyte # 0.151 10^6/uL (0.028-0.122) H 01/31/19 04:17 Absolute Neuts (auto) 5.4 10^3/uL (1.7-8.2) 01/31/19 04:17 Absolute Lymphs (auto) 1.0 10^3/uL (0.5-4.7) 01/31/19 04:17 Absolute Monos (auto) 0.6 10^3/uL (0.1-1.4) 01/31/19 04:17 Absolute Eos (auto) 0.0 10^3/uL (0.0-0.6) 01/31/19 04:17 Absolute Basos (auto) 0.0 10^3/uL (0.0-0.2) 01/31/19 04:17 Seg Neutrophils % 77.3 % (42-78) 01/31/19 04:17 Retic Count (auto) 5.22 % (0.66-2.85) H 01/31/19 04:17 PT 15.8 SEC (11.4-15.4) H 01/28/19 01:47 INR 1.25 01/28/19 01:47 Sodium 140.6 mmol/L (137-145) 02/01/19 10:30 Potassium 4.8 mmol/L (3.6-5.0) 02/01/19 10:30 Chloride 103 mmol/L (98-107) 02/01/19 10:30 Carbon Dioxide 26 mmol/L (22-30) 02/01/19 10:30 Anion Gap 12 (5-19) 02/01/19 10:30 BUN 34 mg/dL (7-20) H 02/01/19 10:30 Creatinine 1.13 mg/dL (0.52-1.25) 02/01/19 10:30 Est GFR ( Amer) 59 (>60) L 02/01/19 10:30 Est GFR (MDRD) Non-Af 48 (>60) L 02/01/19 10:30 Glucose 101 mg/dL (75-110) 02/01/19 10:30 POC Glucose 114 mg/dL (70-110) H 02/01/19 11:00 Hemoglobin A1c % 8.5 % (4.7-6.0) H 01/29/19 07:25 Calcium 9.2 mg/dL (8.4-10.2) 02/01/19 10:30 Magnesium 1.8 mg/dL (1.6-2.3) 01/31/19 04:17 Iron 51.9 ug/dL (37-170) 01/31/19 04:17 TIBC 363 ug/dL (250-450) 01/31/19 04:17 % Saturation 14 % 01/31/19 04:17 Ferritin 42.30 ng/mL (11.1-264.0) 01/31/19 04:17 Total Bilirubin 0.4 mg/dL (0.2-1.3) 01/29/19 07:25 Direct Bilirubin 0.2 mg/dL (0.0-0.4) 01/29/19 07:25 Neonat Total Bilirubin Not Reportable 01/29/19 07:25 Neonat Direct Bilirubin Not Reportable 01/29/19 07:25 Neonat Indirect Bili Not Reportable 01/29/19 07:25 AST 49 U/L (14-36) H 01/29/19 07:25 ALT 50 U/L (<35) 01/29/19 07:25 Alkaline Phosphatase 142 U/L (38-126) H 01/29/19 07:25 Creatine Kinase < 20 U/L (30-135) L 01/28/19 20:30 CK-MB (CK-2) 1.63 ng/mL (<4.55) 01/28/19 20:30 Troponin I 0.086 ng/mL 01/28/19 20:30 NT-Pro-B Natriuret Pep 32261 pg/mL (5-900) H 01/28/19 01:47 Total Protein 5.4 g/dL (6.3-8.2) L 01/29/19 07:25 Albumin 3.0 g/dL (3.5-5.0) L 01/29/19 07:25 Triglycerides 154 mg/dL (<150) H 01/29/19 07:25 Cholesterol 126.74 mg/dL (0-200) 01/29/19 07:25 LDL Cholesterol Direct 76 mg/dL (<100) 01/29/19 07:25 VLDL Cholesterol 30.8 mg/dL (10-31) 01/29/19 07:25 HDL Cholesterol 41 mg/dL (>40) 01/29/19 07:25 Vitamin B12 321.0 pg/mL (239-931) 01/31/19 04:17 Folate 12.40 ng/mL (>2.76) 01/31/19 04:17 TSH 1.32 uIU/mL (0.47-4.68) 01/28/19 01:47 Free T4 1.18 ng/dL (0.78-2.19) 01/28/19 01:47 Free T3 pg/mL 2.82 pg/mL (2.77-5.27) 01/28/19 01:47 Stool Occult Blood POSITIVE (NEGATIVE) 02/01/19 13:20 01/28/19 01/28/19 01/28/19 01:47 08:33 14:45 CK-MB (CK-2) 2.09 2.03 Troponin I 0.156 0.117 0.095 NT-Pro-B Natriuret Pep 75309 H 01/28/19 20:30 CK-MB (CK-2) 1.63 Troponin I 0.086 NT-Pro-B Natriuret Pep Impressions: Chest X-Ray 01/28/19 00:43 IMPRESSION: 1. Bibasilar and left perihilar interstitial prominence which could reflect fibrosis, atelectasis or interstitial edema. 2. Stable superior vena cava stent. Chest CT 01/29/19 00:00 IMPRESSION: 1. BILATERAL PLEURAL EFFUSIONS. 2. PULMONARY NODULES. DUE TO THE USE OF A HIGH-RESOLUTION PROTOCOL, MEASUREMENT MAY BE INACCURATE DUE TO SLICE SPACING. ADDITIONALLY, SMALLER NODULES MAY BE PRESENT AND NOT VISUALIZED DUE TO THE USE OF HIGH-RESOLUTION TECHNIQUE. Chest X-Ray 02/01/19 06:00 IMPRESSION: NO ACUTE RADIOGRAPHIC FINDING IN THE CHEST. Stroke Is this a Stroke Patient?: No Acute Heart Failure - Is this a Heart Failure Patient?: No
== END 2019-02-01 15:25 | disposition home or self-care (01) ==
LOC: ER 00:22 → INTOOBSV 05:01 → EH 05:01 → 3W 06:40
PROVIDERS: ADMIT Emergency Medicine; ATTEND Emergency Medicine
DX: I11.0 Hypertensive heart disease with heart failure (principal); I50.41 Acute combined systolic (congestive) and diastolic (congestive) heart failure; J44.9 Chronic obstructive pulmonary disease, unspecified; E03.9 Hypothyroidism, unspecified; I87.1 Compression of vein; E78.5 Hyperlipidemia, unspecified; M19.90 Unspecified osteoarthritis, unspecified site; F32.9 Major depressive disorder, single episode, unspecified; E66.01 Morbid (severe) obesity due to excess calories; E11.9 Type 2 diabetes mellitus without complications; F17.200 Nicotine dependence, unspecified, uncomplicated; Z79.4 Long term (current) use of insulin; Z79.01 Long term (current) use of anticoagulants; Z95.820 Peripheral vascular angioplasty status with implants and grafts; Z85.118 Personal history of other malignant neoplasm of bronchus and lung; Z85.841 Personal history of malignant neoplasm of brain; Z88.6 Allergy status to analgesic agent; Z71.6 Tobacco abuse counseling; Z83.6 Family history of other diseases of the respiratory system; Z82.49 Family history of ischemic heart disease and other diseases of the circulatory system; Z68.29 Body mass index [BMI] 29.0-29.9, adult
CPT/HCPCS: 93005; 94640 ×8; 99285; 96374; 96375; 36415 ×5; 84439; 82553; 82962 ×5; 82607; 82550; 82728; 82746; 83540; 83550; 83735 ×3; 84443; 85025 ×3; 85610; 82272; 85045; 80048 ×3; 80053 ×2; 84484; 84481; 83036; 80061; 83880; 93306; 71046; 71045; 71250; 93010; 94660 ×5; J1815 ×8; J3490 ×21; J1940 ×4; J2930; G0378

== ENCOUNTER 2019-05-31 10:41 | Inpatient (IN) | payer MEDICARE, MEDICAID ==
--- NOTE | 2019-05-31 11:39 | ER Document Report ---
ED Medical Screen (RME) - General Chief Complaint: General Weakness Stated Complaint: WEAKNESS/DIZZINESS Time Seen by Provider: 05/31/19 11:35 Primary Care Provider: MILTON PALENCIA PA-C [Primary Care Provider] - Follow up as needed Notes: 64-year-old female with history of brain cancer and "spot on my heart" presents for dizziness, dyspnea on exertion, nausea for 1 week. Patient is currently on chemo and was supposed to have a treatment yesterday. Her oncologist is in [place]. Patient states she feels like she is going to "pass out." Patient has required iron transfusions in the past, last one was approximately 1-1/2 months ago. Lungs clear to auscultation bilaterally. Regular rate and rhythm. Patient appears pale. I have greeted and performed a rapid initial assessment of this patient. A comprehensive ED assessment and evaluation of the patient, analysis of test results and completion of the medical decision making process with be conducted by additional ED providers. TRAVEL OUTSIDE OF THE [place] IN LAST 30 DAYS: No - Related Data Allergies/Adverse Reactions: codeine Allergy (Verified 05/31/19 11:32) Past Medical History - Social History Frequency of alcohol use: None Drug Abuse: None - Past Medical History Cardiac Medical History: Reports: Hx Hypercholesterolemia, Hx Hypertension Denies: Hx Atrial Fibrillation, Hx Congestive Heart Failure, Hx Coronary Artery Disease, Hx DVT, Hx Heart Attack, Hx Peripheral Vascular Disease, Hx Pulmonary Embolism Pulmonary Medical History: Reports: Hx COPD Denies: Hx Asthma Neurological Medical History: Denies: Hx Seizures Endocrine Medical History: Reports: Hx Hypothyroidism. Denies: Hx Diabetes Mellitus Type 1, Hx Diabetes Mellitus Type 2, Hx Hyperthyroidism Renal/ Medical History: Denies: Hx Peritoneal Dialysis Malignancy Medical History: Reports: Hx Lung Cancer - With brain metastases GI Medical History: Denies: Hx Cirrhosis, Hx Hepatitis Musculoskeltal Medical History: Reports Hx Arthritis, Denies Hx Gout Skin Medical History: Denies Hx Eczema, Denies Hx Psoriasis Psychiatric Medical History: Denies: Hx Depression Infectious Medical History: Denies: Hx Hepatitis Past Surgical History: Reports: Hx Vascular Surgery - Vena cava stenting to relieve tumor obstruction, Other - Gamma knife neurosurgery for brain metastases x2 Physical Exam - Vital signs Vitals: Temp Pulse Resp BP Pulse Ox 97.6 F 85 16 110/62 100 05/31/19 11:09 05/31/19 11:09 05/31/19 11:09 05/31/19 11:09 05/31/19 11:09 Course - Vital Signs Vital signs: Temp Pulse Resp BP Pulse Ox 97.6 F 85 16 110/62 100 05/31/19 11:09 05/31/19 11:09 05/31/19 11:09 05/31/19 11:09 05/31/19 11:09 Doctor's Discharge - Discharge Referrals: MILTON PALENCIA PA-C [Primary Care Provider] - Follow up as needed
--- NOTE | 2019-05-31 12:01 | RADIOLOGY REPORT (SQ) ---
EXAM DESCRIPTION: CHEST 2 VIEWS COMPLETED DATE/TIME: 05/31/2019 11:52 am REASON FOR STUDY: dyspnea COMPARISON: 02/01/2019 EXAM PARAMETERS: NUMBER OF VIEWS: two views TECHNIQUE: Digital Frontal and Lateral radiographic views of the chest acquired. RADIATION DOSE: NA LIMITATIONS: none FINDINGS: LUNGS AND PLEURA: No opacities, masses or pneumothorax. No pleural effusion. MEDIASTINUM AND HILAR STRUCTURES: No masses or contour abnormalities. HEART AND VASCULAR STRUCTURES: Heart normal size. No evidence for failure. BONES: No acute findings. HARDWARE: Scattered surgical clips overlie the left hemithorax and right upper quadrant. Vascular st ent remains in place. OTHER: No other significant finding. IMPRESSION: NO ACUTE RADIOGRAPHIC FINDING IN THE CHEST. TECHNICAL DOCUMENTATION: JOB ID: [id number] 2010 [employer]- All Rights Reserved Reading location - IP/workstation name: [email or web address]
[2019-05-31 13:48] LABS: ABSOLUTE LYMPHOCYTES (AUTO) 0.8 10^3/uL (0.5-4.7); ABSOLUTE MONOCYTES (AUTO) 0.2 10^3/uL (0.1-1.4); ABSOLUTE NEUT (AUTO) 1.9 10^3/uL (1.7-8.2); BASOPHILS % (AUTO) 0.2 % (0-2); EOSINOPHILS % (AUTO) 0.3 % (0-6); LYMPHOCYTES % (AUTO) 27.5 % (13-45); MEAN CORPUSCULAR HEMOGLOBIN 30.2 pg (27.0-33.4); MEAN CORPUSCULAR HGB CONC 35.2 g/dL (32.0-36.0); MEAN CORPUSCULAR VOLUME 86 fl (80-97); MONOCYTES % (AUTO) 7.6 % (3-13); RED BLOOD COUNT 1.66 10^6/uL (3.72-5.28); SEGMENTED NEUTROPHILS % (AUTO) 64.4 % (42-78); TOTAL CELLS COUNTED % (AUTO) 100 %
[2019-05-31 14:05] LABS: ALBUMIN 3.9 g/dL (3.5-5.0); ALKALINE PHOSPHATASE 51 U/L (38-126); ANION GAP 9 (5-19); ASPARTATE AMINO TRANSFERASE 22 U/L (14-36); BILIRUBIN,TOTAL 0.7 mg/dL (0.2-1.3); BLOOD UREA NITROGEN 33 mg/dL (7-20); CALCIUM 8.9 mg/dL (8.4-10.2); CARBON DIOXIDE 24 mmol/L (22-30); CHLORIDE 101 mmol/L (98-107); GLUCOSE 184 mg/dL (75-110); POTASSIUM 4.5 mmol/L (3.6-5.0)
[2019-05-31 14:10] LABS: HEMATOCRIT 14.2 % (36.0-47.0)
[2019-05-31] MEDS ORDERED: NORMAL SALINE 250 ML IV PRN ×5 (14:10→23:06)
[2019-05-31 14:11] LABS: PLATELET COUNT 34 10^3/uL (150-450)
[2019-05-31 14:16] LABS: ANISOCYTOSIS 3+; HYPOCHROMASIA 1+; PLATELET COMMENT DECREASED; POLYCHROMASIA SLIGHT
[2019-05-31 14:17] LABS: OVALOCYTES SLIGHT; TOXIC VACUOLATION PRESENT
[2019-05-31] MEDS ORDERED: NORMAL SALINE 1000 ML 1,000 ML IV ONE ×2 (14:54)
--- NOTE | 2019-05-31 15:35 | ER Document Report ---
ED Dizziness/Weakness - General Chief Complaint: General Weakness Stated Complaint: WEAKNESS/DIZZINESS Time Seen by Provider: 05/31/19 11:35 Primary Care Provider: MILTON PALENCIA PA-C [Primary Care Provider] - Follow up as needed Mode of Arrival: Ambulatory Information source: Patient TRAVEL OUTSIDE OF THE [place] IN LAST 30 DAYS: No - HPI Notes: Patient presents with 1 week of nausea weakness and dyspnea on exertion. Her symptoms have been constant. They are worse with exertion and better with rest. They do radiate throughout her body. She has had no fevers. She has had a mild cough. She is still smoking. She also states that she is getting chemo currently for a "cancer on the left side of my heart". She was unable to tell me what kind of cancer this is. She states that she receives the chemo in [facility]. She denies any significant chest pain or abdominal pain. No diarrhea. She states she has not appreciated any change in her stool. Her symptoms have been moderate to severe. She denies any significant pain. - Related Data Allergies/Adverse Reactions: codeine Allergy (Verified 05/31/19 11:32) Past Medical History - General Information source: Patient - Social History Smoking Status: Current Every Day Smoker Frequency of alcohol use: None Drug Abuse: None Family History: COPD, Hypertension Patient has suicidal ideation: No Patient has homicidal ideation: No - Past Medical History Cardiac Medical History: Reports: Hx Hypercholesterolemia, Hx Hypertension Denies: Hx Atrial Fibrillation, Hx Congestive Heart Failure, Hx Coronary Artery Disease, Hx DVT, Hx Heart Attack, Hx Peripheral Vascular Disease, Hx Pulmonary Embolism Pulmonary Medical History: Reports: Hx COPD Denies: Hx Asthma Neurological Medical History: Denies: Hx Seizures Endocrine Medical History: Reports: Hx Hypothyroidism. Denies: Hx Diabetes Mellitus Type 1, Hx Diabetes Mellitus Type 2, Hx Hyperthyroidism Renal/ Medical History: Denies: Hx Peritoneal Dialysis Malignancy Medical History: Reports: Hx Lung Cancer - With brain metastases GI Medical History: Denies: Hx Cirrhosis, Hx Hepatitis Musculoskeletal Medical History: Reports Hx Arthritis, Denies Hx Gout Skin Medical History: Denies Hx Eczema, Denies Hx Psoriasis Psychiatric Medical History: Denies: Hx Depression Infectious Medical History: Denies: Hx Hepatitis Past Surgical History: Reports: Hx Vascular Surgery - Vena cava stenting to relieve tumor obstruction, Other - Gamma knife neurosurgery for brain metastases x2 Review of Systems - Review of Systems Constitutional: Malaise, Weakness. denies: Chills, Fever Cardiovascular: Palpitations. denies: Chest pain Respiratory: Cough, Short of breath -: Yes All other systems reviewed and negative Physical Exam - Vital signs Vitals: Temp Pulse Resp BP Pulse Ox 97.6 F 85 16 110/62 100 05/31/19 11:09 05/31/19 11:09 05/31/19 11:09 05/31/19 11:09 05/31/19 11:09 Interpretation: Hypotensive - General General appearance: Appears well, Alert - HEENT Head: Normocephalic, Atraumatic Eyes: Normal Pupils: PERRL - Respiratory Respiratory status: No respiratory distress Chest status: Nontender Breath sounds: Normal Chest palpation: Normal - Cardiovascular Rhythm: Regular Heart sounds: Normal auscultation Murmur: No - Abdominal Inspection: Normal Distension: No distension Bowel sounds: Normal Tenderness: Nontender Organomegaly: No organomegaly - Rectal Tenderness: No Stool: Heme positive, Black - Back Back: Normal, Nontender - Extremities General upper extremity: Normal inspection, Nontender, Normal color, Normal ROM, Normal temperature General lower extremity: Normal inspection, Nontender, Normal color, Normal ROM, Normal temperature, Normal weight bearing. No: Lian's sign - Neurological Neuro grossly intact: Yes Cognition: Normal Orientation: AAOx4 [place] Coma Scale Eye Opening: Spontaneous Meryl Coma Scale Verbal: Oriented Meryl Coma Scale Motor: Obeys Commands [place] Coma Scale Total: 15 Speech: Normal Motor strength normal: LUE, RUE, LLE, RLE Sensory: Normal - Psychological Associated symptoms: Normal affect, Normal mood - Skin Skin Temperature: Warm Skin Moisture: Dry Skin Color: Pale Course - Re-evaluation Re-evalutation: 05/31/19 15:33 Patient presents pale with history of cancer and extreme weakness. She is found to have heme positive stool and a hemoglobin of 5. Blood pressure is approximately 80 systolic. 2 IV lines have been started. Patient is getting 2 L of fluid bolus. She also has had 2 units of packed red cells ordered but she has significant antibodies delaying the release of this blood. At this time she is not diaphoretic. She is mentating normally. She is not tachycardic. - Vital Signs Vital signs: Temp Pulse Resp BP Pulse Ox 97.6 F 85 27 H 88/56 L 100 05/31/19 11:09 05/31/19 11:09 05/31/19 14:44 05/31/19 14:44 05/31/19 14:44 - Laboratory Result Diagrams: 05/31/19 13:20 05/31/19 13:20 Laboratory results interpreted by me: 05/31/19 05/31/19 05/31/19 13:20 13:20 13:20 WBC 3.0 L RBC 1.66 L Hgb 5.0 L* Hct 14.2 L* RDW 27.0 H Plt Count 34 L Sodium 133.9 L BUN 33 H Est GFR ( Amer) 56 L Est GFR (MDRD) Non-Af 46 L Glucose 184 H Total Protein 6.0 L Crossmatch See Detail - Diagnostic Test Radiology reviewed: Image reviewed, Reports reviewed - EKG Interpretation by Me EKG shows normal: Sinus rhythm Rate: Normal - 98 Rhythm: NSR Buck[place]/QRS: No: Right axis deviation, Left axis deviation Critical Care Note - Critical Care Note Total time excluding time spent on procedures (mins): 60 Comments: Approximately 60 minutes of critical care time were spent managing this patient's GI bleed with anemia. This was spent updating family multiple times. It was spent talking to multiple consultants. It was spent reviewing old records. It is spent reviewing labs and images as well as doing multiple patient reassessments. Discharge - Discharge Clinical Impression: Tobacco use disorder, severe, dependence Anemia Qualifiers: Anemia type: iron deficiency Iron deficiency anemia type: chronic blood loss Qualified Code(s): D50.0 - Iron deficiency anemia secondary to blood loss (chronic) Hypotension Qualifiers: Hypotension type: hypotension due to hypovolemia Qualified Code(s): I95.89 - Other hypotension; E86.1 - Hypovolemia Condition: Serious Disposition: ADMITTED INPATIENT Admitting Provider: Sierra ([facility]) Unit Admitted: ICU Referrals: MILTON PALENCIA PA-C [Primary Care Provider] - Follow up as needed
[2019-05-31] MEDS ORDERED: RINGERS SOLUTION,LACTATED 1,000 ML IV PRN (16:35)
[2019-05-31] MEDS ORDERED: ALBUMIN HUMAN 500 ML IV ONE (17:15)
[2019-05-31 18:14] LABS: ABSOLUTE RETICS # 0.101 10^6/uL (0.028-0.122); RETICULOCYTE COUNT (AUTO) 6.15 % (0.66-2.85)
[2019-05-31] MEDS ORDERED: HYDROCORTISONE SOD SUCCINATE INJ/PF 100 MG/2 ML SDV IV SCH (19:00)
--- NOTE | 2019-05-31 19:45 | CRITICAL CARE ADMISSION REPORT ---
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 She endorses near syncopal type symptoms but has not had any rivera syncope. She has felt generalized malaise for about a week seen by the EMS yesterday because of the weakness. She is given IV fluids and felt better and declined to come to the emergency room. She presents today because the symptoms have reoccurred. She was noted to have a hemoglobin of about 5 in the emergency room and originally had no hypotension. She did not have any active upper or lower GI bleed however her stool was maroon to dark with positive guaiac. She has had a history of anemia but does not know how low her counts are normally. Last chemotherapy was 3 weeks ago but she is unsure what the chemotherapy is. He specifically denies any hemoptysis, melena, hematochezia and hematemesis. Is not had any epistaxis or bleeding from her gums. She is had no petechiae and no easy bruising. She denies flu symptoms such as fever. She has had some muscle aches of her neck and back but she has had this from her malignancy. 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 History obtained from:: Patient and family - Diagnosis/Plan (1) Hypotension Qualifiers: Hypotension type: unspecified hypotension type Qualified Code(s): I95.9 - Hypotension, unspecified (2) Anemia Qualifiers: Anemia type: iron deficiency Is this a current diagnosis for this admission?: Yes (3) Metastatic squamous cell carcinoma involving lung with unknown primary site Qualifiers: Laterality: unspecified laterality Qualified Code(s): C78.00 - Secondary malignant neoplasm of unspecified lung; C80.1 - Malignant (primary) neoplasm, unspecified Is this a current diagnosis for this admission?: Yes (4) Squamous cell carcinoma of lung, stage IV Qualifiers: Laterality: unspecified laterality Qualified Code(s): C34.90 - Malignant neoplasm of unspecified part of unspecified bronchus or lung Is this a current diagnosis for this admission?: Yes (5) 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 Plan Summary: We will admit the patient to the ICU to monitor hypotension. Is mentating without any chest pain or shortness of breath. I am suspicious that her anemia has been longstanding and that her hypotension may be related to other conditions. She does not appear to be septic. Critical care echo does not show any cardiac dysfunction and her ejection fraction is intact and at least 60%. I do not appreciate any pericardial effusions and there are no masses. She may have adrenal insufficiency as well. We will check a repeat H&H. Been informed by our blood bank that the patient has significant warm auto antibodies making it difficult to transfuse. Spoken to our surgeons regarding an upper GI evaluation however given her platelet count I am reluctant to requests for them to expose her to that risk. And the fact that she is mentating and her blood pressure has improved with albumin and fluids we will monitor her in the ICU as we await appropriate blood products and repeat hemoglobin. Treatment for life-threatening bleed would include traxenemic acid cryoprecipitate. I have ordered coagulation profile as well on the patient. Will consult our hematology service and oncology service. Will transfuse 1 unit of platelets Past Medical History Cardiac Medical History: Reports: Coronary Artery Disease - S/p stents. 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 Neurological Medical History: Denies: Seizures Endocrine Medical History: Reports: Hypothyroidism Denies: Diabetes Mellitus Type 1, Diabetes Mellitus Type 2, Hyperthyroidism Malignancy Medical History: Reports: Lung Cancer - With brain metastases, Other GI Medical History: Denies: Cirrhosis, Hepatitis Musculoskeltal Medical History: Reports: Arthritis Denies: Gout Skin Medical History: Denies: Eczema, Psoriasis Psychiatric Medical History: Denies: Depression Hematology: Denies: Anemia, Bleeding Tendencies Past Surgical History Past Surgical History: Reports: Vascular Surgery - Vena cava stenting to relieve tumor obstruction, Other - Gamma knife neurosurgery for brain metastases x2 Social/Family History - Social History Lives with: Family Smoking Status: Current Every Day Smoker Frequency of Alcohol Use: None Hx Recreational Drug Use: No Drugs: None Hx Prescription Drug Abuse: No - Medication/Allergies Home Medications: Apixaban [Eliquis 5 mg Tablet] 5 mg PO BID 05/31/19 Benazepril HCl [Lotensin 20 mg Tablet] 20 mg PO DAILY 05/31/19 Ferrous Sulfate [Feosol 325 mg Tablet] 325 mg PO MEALS 05/31/19 Fluticasone Propionate [Flonase Nasal [place] 50 Mcg/[place] 16 gm] 1 spray NAREB DAILY 05/31/19 Furosemide [Lasix 20 mg Tablet] 20 mg PO QAM 05/31/19 Insulin Aspart [Novolog Flexpen] 5 unit SUBCUT AC 05/31/19 Loperamide HCl [Imodium 2 mg Capsule] 2 mg PO QIDP PRN 05/31/19 Metoprolol Succinate [Toprol Xl] 100 mg PO DAILY 05/31/19 Mupirocin [Bactroban 2% Ointment 22 gm] 1 applic TP BID 05/31/19 Ondansetron [Zofran Odt 4 mg Tablet] 4 mg PO Q6HP PRN 05/31/19 Potassium Chloride [Klor-Con M10] 10 meq PO DAILY 05/31/19 Pravastatin Sodium [Pravachol] 20 mg PO DAILY 05/31/19 Allergies/Adverse Reactions: codeine Allergy (Verified 05/31/19 11:32) Review of Systems Constitutional: PRESENT: fatigue, weakness. ABSENT: chills Cardiovascular: PRESENT: dyspnea on exertion. ABSENT: chest pain Respiratory: PRESENT: cough. ABSENT: hemoptysis, sputum Gastrointestinal: ABSENT: as per HPI, abdominal pain, bloating, coffee ground emesis, constipation, diarrhea, dysphagia, heartburn, hematemesis, hematochezia, melena, nausea, vomiting, other Genitourinary: ABSENT: dysuria, hematuria Musculoskeletal: PRESENT: as per HPI Integumentary: PRESENT: as per HPI. ABSENT: lesions, pruritus Neurological: PRESENT: as per HPI Endocrine: PRESENT: as per HPI Hematologic/Lymphatic: PRESENT: as per HPI Physical Exam Vital Signs: Temp Pulse Resp BP Pulse Ox 97.6 F 85 15 82/69 L 100 05/31/19 11:09 05/31/19 11:09 05/31/19 15:48 05/31/19 15:48 05/31/19 15:48 Intake & Output 05/30/19 05/31/19 06/01/19 06:59 06:59 06:59 Intake Total 1999 Balance 1999 Weight 75.296 kg Weight/Height Weight 75.296 kg Height 5 ft 5 in General appearance: PRESENT: no acute distress, obese, well-developed, well- nourished Exam: Nontoxic ill 64-year-old female no acute distress awake alert oriented x3 Eye exam: PRESENT: conjunctiva pink, EOMI, PERRLA. ABSENT: nystagmus, scleral icterus Ear exam: ABSENT: bleeding Mouth exam: PRESENT: dry mucosa Teeth exam: PRESENT: edentulous Neck exam: ABSENT: carotid bruit, JVD, lymphadenopathy, thyromegaly Respiratory exam: PRESENT: clear to auscultation jany. ABSENT: accessory muscle use, rales, rhonchi, wheezes Cardiovascular exam: PRESENT: RRR. ABSENT: diastolic murmur, rubs, systolic murmur Pulses: PRESENT: +1 pedal pulses bilateral GI/Abdominal exam: PRESENT: normal bowel sounds, soft. ABSENT: ascites, distended, guarding, mass, organolmegaly, rebound, tenderness Rectal exam: PRESENT: black stool Extremities exam: PRESENT: pedal edema Musculoskeletal exam: PRESENT: normal inspection. ABSENT: deformity, dislocation Neurological exam: PRESENT: alert, awake, oriented to person, oriented to place, oriented to time, oriented to situation, CN II-XII grossly intact. ABSENT: motor sensory deficit Psychiatric exam: PRESENT: appropriate affect, normal mood Skin exam: PRESENT: erythema - of palms. Eye grounds minimally pale, warm. ABSENT: petechiae Laboratory/Radiographs Laboratory Results: 05/31/19 13:20 05/31/19 13:20 05/31/19 05/31/19 05/31/19 13:20 13:20 13:20 WBC 3.0 L RBC 1.66 L Hgb 5.0 L* Hct 14.2 L* MCV 86 MCH 30.2 MCHC 35.2 RDW 27.0 H Plt Count 34 L Seg Neutrophils % 64.4 Sodium 133.9 L Potassium 4.5 Chloride 101 Carbon Dioxide 24 Anion Gap 9 BUN 33 H Creatinine 1.17 Est GFR ( Amer) 56 L Glucose 184 H Calcium 8.9 Total Bilirubin 0.7 AST 22 Alkaline Phosphatase 51 Total Protein 6.0 L Albumin 3.9 Blood Type AB POSITIVE Antibody Screen POSITIVE 05/31/19 13:20 Troponin I < 0.012 Impressions: Chest X-Ray 05/31/19 11:37 IMPRESSION: NO ACUTE RADIOGRAPHIC FINDING IN THE CHEST. All labs, radiographs, diagnostic studies and EKGs were personally reviewed: Yes In addition, reports of radiographic and diagnostic studies were read: Yes Critical Time Critical Time (minutes): 68 -: The care of a critically ill patient is dynamic. This note represents a static moment in the admission process. Orders and treatments may be given simultaneously and urgently, and time is not farm loan representative of the treatment process. This patient requires Critical Care secondary to life threatening organ or limb dysfunction. Without Critical Care services, the patient is at risk for increased mortality and morbidity.
--- NOTE | 2019-05-31 20:01 | RADIOLOGY REPORT (SQ) ---
EXAM DESCRIPTION: CT ABD/PELVIS WITH IV ONLY COMPLETED DATE/TIME: 05/31/2019 7:45 pm REASON FOR STUDY: hypotension with anemia COMPARISON: 01/21/2018 TECHNIQUE: CT scan of the abdomen and pelvis performed using helical scanning technique with dynamic intravenous contrast injection. No oral contrast. Images reviewed with lung, soft tissue, and bone windows. Reconstructed coronal and sagittal MPR images reviewed. Delayed images for evaluation of the urinary system also acquired. All images stored on PACS. All CT scanners at this facility use dose modulation, iterative reconstruction, and/or weight based d osing when appropriate to reduce radiation dose to as low as reasonably achievable (ALARA). [facility]: Dose Right [facility]: CareDose [facility]: Dose Right [facility]: Teradose 4D [facility]: Mutualink CONTRAST TYPE AND DOSE: contrast/concentration: Isovue mg/ml; Total Contrast Delivered: 86.0 ml; To prem Saline Delivered: 37.9 ml RENAL FUNCTION: BUN 31 creatinine 1.1 RADIATION DOSE: CT Rad equipment meets quality standard of care and radiation dose reduction techniq ues were employed. CTDIvol: 10.5 - 14.8 mGy. DLP: 1370 mGy-cm.. LIMITATIONS: None. FINDINGS: LOWER CHEST: No significant findings. No nodules or infiltrates. LIVER: Normal size. No masses. No dilated ducts. SPLEEN: Normal size. No focal lesions. PANCREAS: No masses. No significant calcifications. No adjacent inflammation or peripancreatic fluid collections. Pancreatic duct not dilated. GALLBLADDER: Surgically absent. ADRENAL GLANDS: No significant masses or asymmetry. RIGHT KIDNEY AND URETER: No solid masses. No significant calcifications. No hydronephrosis or hyd roureter. LEFT KIDNEY AND URETER: No solid masses. No significant calcifications. No hydronephrosis or hydr oureter. AORTA AND VESSELS: No aneurysm. No dissection. Renal arteries, SMA, celiac without stenosis. RETROPERITONEUM: No retroperitoneal adenopathy, hemorrhage or masses. BOWEL AND PERITONEAL CAVITY: No masses or inflammatory changes. No free fluid or peritoneal masses. APPENDIX: Normal. PELVIS: The bladder is not well seen, being poorly filled. No pelvic mass or fluid collection. ABDOMINAL WALL: No masses. No hernias. BONES: No significant or acute findings. OTHER: No other significant finding. IMPRESSION: NO SIGNIFICANT OR ACUTE FINDING IN THE ABDOMEN OR PELVIS ON CT SCAN WITH IV CONTRAST. TECHNICAL DOCUMENTATION: JOB ID: [id number] Quality ID # [id number]: Final reports with documentation of one or more dose reduction techniques (e.g., Au tomated exposure control, adjustment of the mA and/or kV according to patient size, use of iterative reconstruction technique) 2010 [employer]- All Rights Reserved Reading location - IP/workstation name: [email or web address]
[2019-05-31 21:11] LABS: MEAN CORPUSCULAR HEMOGLOBIN 30.7 pg (27.0-33.4); MEAN CORPUSCULAR VOLUME 88 fl (80-97); RED CELL DISTRIBUTION WIDTH 26.7 % (11.5-14.0)
[2019-05-31 21:42] LABS: ABSOLUTE LYMPHOCYTES# (MANUAL) 0.7 10^3/uL (0.5-4.7); BASOPHILS % (MANUAL) 0 % (0-2); EOSINOPHILS % (MANUAL) 0 % (0-6); LYMPHOCYTES % (MANUAL) 50 % (13-45); MONOCYTES % (MANUAL) 0 % (3-13); SEGMENTED NEUTROPHILS % (MAN) 50 % (42-78); TOTAL CELLS COUNTED 50
[2019-05-31 21:48] LABS: POLYCHROMASIA SLIGHT
[2019-05-31 21:49] LABS: ANISOCYTOSIS 3+; OVALOCYTES SLIGHT; PLATELET COMMENT DECREASED; POIKILOCYTOSIS SLIGHT
[2019-05-31 21:56] LABS: HEMATOCRIT 9.7 % (36.0-47.0); HEMOGLOBIN 3.4 g/dL (12.0-15.5)
[2019-05-31 21:57] LABS: PLATELET COUNT 21 10^3/uL (150-450)
[2019-05-31] MEDS ORDERED: METHYLPREDNISOLONE INJ 125 MG/2 ML SDV IV ONE (22:16)
--- NOTE | 2019-05-31 22:33 | EKG REPORT ---
SEVERITY:- NORMAL ECG - SINUS RHYTHM : Confirmed by: Nadia Gonzalez 31-May-2019 22:33:28
[2019-05-31] MEDS: FAMOTIDINE INJ/PF 20 MG/2 ML SDV IV SCH (22:55)
[2019-05-31] MEDS: ALBUMIN HUMAN 12.5 GM/50 ML RTUINJ IV SCH (22:59)
[2019-06-01] MEDS: ALBUMIN HUMAN 12.5 GM/50 ML RTUINJ IV SCH ×3 (00:04→01:40)
[2019-06-01] MEDS: DIPHENHYDRAMINE HCL 50 MG/ML VIAL IV PRN ×3 (00:13→11:01)
[2019-06-01] MEDS ORDERED: LEVALBUTEROL HCL NEB 1.25 MG/3 ML AMPUL NEB ONE ×4 (03:37→07:45)
[2019-06-01] MEDS ORDERED: IPRATROPIUM/ALBUTEROL 0.5-2.5 MG/3 ML AMPUL NEB ONE (03:37)
[2019-06-01] MEDS ORDERED: IPRATROPIUM BROMIDE 0.02% NEB 0.5 MG/2.5 ML AMPUL NEB ONE ×2 (03:39→03:43)
[2019-06-01] MEDS: METHYLPREDNISOLONE INJ 125 MG/2 ML SDV IV SCH ×3 (04:35→22:12)
[2019-06-01] MEDS ORDERED: METHYLPREDNISOLONE INJ 125 MG/2 ML SDV ONE (04:40)
[2019-06-01 06:18] LABS: ALBUMIN 4.5 g/dL (3.5-5.0); ALKALINE PHOSPHATASE 57 U/L (38-126); ANION GAP 17 (5-19); ASPARTATE AMINO TRANSFERASE 81 U/L (14-36); BILIRUBIN,DIRECT 1.5 mg/dL (0.0-0.4); BLOOD UREA NITROGEN 33 mg/dL (7-20); CARBON DIOXIDE 16 mmol/L (22-30); CHLORIDE 108 mmol/L (98-107); GLUCOSE 187 mg/dL (75-110); PHOSPHORUS 3.4 mg/dL (2.5-4.5); POTASSIUM 4.5 mmol/L (3.6-5.0); TOTAL PROTEIN 6.8 g/dL (6.3-8.2)
[2019-06-01 06:22] LABS: ABSOLUTE LYMPHOCYTES (AUTO) 0.5 10^3/uL (0.5-4.7); ABSOLUTE MONOCYTES (AUTO) 0.1 10^3/uL (0.1-1.4); ABSOLUTE NEUT (AUTO) 1.5 10^3/uL (1.7-8.2); BASOPHILS % (AUTO) 0.1 % (0-2); EOSINOPHILS % (AUTO) 0.1 % (0-6); LYMPHOCYTES % (AUTO) 21.8 % (13-45); MEAN CORPUSCULAR HEMOGLOBIN 31.3 pg (27.0-33.4); MEAN CORPUSCULAR HGB CONC 34.8 g/dL (32.0-36.0); MEAN CORPUSCULAR VOLUME 90 fl (80-97); MONOCYTES % (AUTO) 6.2 % (3-13); RED BLOOD COUNT 1.62 10^6/uL (3.72-5.28); RED CELL DISTRIBUTION WIDTH 22.5 % (11.5-14.0); SEGMENTED NEUTROPHILS % (AUTO) 71.8 % (42-78); TOTAL CELLS COUNTED % (AUTO) 100 %; WHITE BLOOD COUNT 2.1 10^3/uL (4.0-10.5)
[2019-06-01 06:23] LABS: BILIRUBIN,TOTAL 4.6 mg/dL (0.2-1.3)
[2019-06-01 06:39] LABS: HEMATOCRIT 14.5 % (36.0-47.0); HEMOGLOBIN 5.1 g/dL (12.0-15.5)
[2019-06-01 06:40] LABS: PLATELET COUNT 55 10^3/uL (150-450)
[2019-06-01 06:48] LABS: ANISOCYTOSIS 3+; OVALOCYTES SLIGHT; PLATELET COMMENT DECREASED; POIKILOCYTOSIS 1+; POLYCHROMASIA SLIGHT; TEAR DROP CELLS SLIGHT
[2019-06-01] MEDS: MAGNESIUM SULFATE/D5W 1 GM/100 ML RTUPB IV SCH ×4 (06:52→12:02)
[2019-06-01] MEDS ORDERED: NITROGLYCERIN 0.4 MG/TAB 25 TAB/BOTTLE ONE (06:58)
[2019-06-01] MEDS ORDERED: NITROGLYCERIN 0.4 MG/TAB 25 TAB/BOTTLE SL ONE (06:58)
[2019-06-01] MEDS ORDERED: MORPHINE SULFATE 10 MG/ML INJ ONE (07:02)
[2019-06-01 07:13] LABS: INTERNATIONAL RATION (INR) 1.44; PARTIAL THROMBOPLASTIN TIME 23.3 SEC (23.5-35.8); PROTHROMBIN TIME 17.7 SEC (11.4-15.4)
--- NOTE | 2019-06-01 07:38 | RADIOLOGY REPORT (SQ) ---
EXAM DESCRIPTION: XR CHEST 1 VIEW COMPLETED DATE/TME: 06/01/2019 00:00 CLINICAL HISTORY: SOB COMPARISON: 05/31/2019 FINDINGS: Single frontal view of the chest. Cardiomediastinal silhouette: Normal size and contour. Right-sided vascular stent. Leads overlie the chest. Postoperative change of the left chest wall. Lungs: No consolidation, pneumothorax, or pleural effusion. Bones: Stable. Upper abdomen: No abnormality identified. IMPRESSION: 1. No acute pulmonary process identified.
--- NOTE | 2019-06-01 09:11 | EKG REPORT ---
SEVERITY:- BORDERLINE ECG - SINUS TACHYCARDIA BORDERLINE PROLONGED QT INTERVAL : Confirmed by: Nadia Gonzalez 01-Jun-2019 09:09:41
[2019-06-01] MEDS: FAMOTIDINE INJ/PF 20 MG/2 ML SDV IV SCH ×2 (09:44→22:12)
[2019-06-01 11:00] LABS: WHITE BLOOD COUNT 1.3 10^3/uL (4.0-10.5)
[2019-06-01 11:36] LABS: PATH REVIEW PATHOLOGIST REVIEWED
[2019-06-01 11:37] LABS: PATH REVIEW PATHOLOGIST REVIEWED
[2019-06-01] MEDS ORDERED: ALBUTEROL SULFATE 0.083% NEB 2.5 MG/3 ML AMPUL NEB PRN (17:55)
[2019-06-01] MEDS ORDERED: ALBUTEROL SULFATE 0.083% NEB 2.5 MG/3 ML AMPUL NEB ONE (17:55)
[2019-06-01] MEDS ORDERED: FUROSEMIDE INJ/PF 20 MG/2 ML SDV ONE ×2 (18:25→18:57)
[2019-06-01] MEDS ORDERED: FUROSEMIDE INJ/PF 20 MG/2 ML SDV IV ONE (18:25)
[2019-06-01] MEDS ORDERED: VASOPRESSIN INJ 20 UNIT/1 ML VIAL ONE (19:01)
[2019-06-01] MEDS ORDERED: FUROSEMIDE INJ/PF 20 MG/2 ML SDV INJ ONE (19:23)
[2019-06-01 19:43] LABS: INTERNATIONAL RATION (INR) 2.05; PROTHROMBIN TIME 23.4 SEC (11.4-15.4)
[2019-06-01 19:44] LABS: FIBRINOGEN 261 mg/dL (209-497); HEMATOCRIT 36.8 % (36.0-47.0); MEAN CORPUSCULAR HEMOGLOBIN 29.1 pg (27.0-33.4); MEAN CORPUSCULAR HGB CONC 29.8 g/dL (32.0-36.0); RED BLOOD COUNT 3.77 10^6/uL (3.72-5.28); RED CELL DISTRIBUTION WIDTH 19.4 % (11.5-14.0)
[2019-06-01 19:49] LABS: MEAN CORPUSCULAR VOLUME 98 fl (80-97); PLATELET COUNT 77 10^3/uL (150-450)
[2019-06-01] MEDS ORDERED: NOREPINEPHRINE BITARTRATE INJ/PF 4 MG/4 ML SDV IV ONE (19:50)
[2019-06-01] MEDS ORDERED: NORMAL SALINE 250 ML IV PRN ×5 (19:56→20:13)
[2019-06-01] MEDS ORDERED: SODIUM BICARBONATE 8.4% INJ 50 MEQ/50 ML DISP.SYRIN ONE ×2 (20:00→23:18)
[2019-06-01] MEDS ORDERED: CALCIUM GLUCONATE 1000 MG/10 ML INJ IV ONE ×2 (20:01→20:50)
[2019-06-01 20:05] LABS: ALBUMIN 3.4 g/dL (3.5-5.0); ALKALINE PHOSPHATASE 61 U/L (38-126); ASPARTATE AMINO TRANSFERASE 212 U/L (14-36); BILIRUBIN,DIRECT 0.9 mg/dL (0.0-0.4); BILIRUBIN,TOTAL 2.4 mg/dL (0.2-1.3); BLOOD UREA NITROGEN 34 mg/dL (7-20); CALCIUM 8.3 mg/dL (8.4-10.2); TOTAL PROTEIN 5.3 g/dL (6.3-8.2)
[2019-06-01 20:10] LABS: ABSOLUTE LYMPHOCYTES# (MANUAL) 5.2 10^3/uL (0.5-4.7); ABSOLUTE MONOCYTES # (MANUAL) 0.6 10^3/uL (0.1-1.4); BAND NEUTROPHILS % (MANUAL) 2 % (3-5); BASOPHILS % (MANUAL) 0 % (0-2); CHLORIDE 105 mmol/L (98-107); EOSINOPHILS % (MANUAL) 0 % (0-6); LYMPHOCYTES % (MANUAL) 61 % (13-45); MONOCYTES % (MANUAL) 7 % (3-13); NUCLEATED RED BLOOD CELLS 6 /100 WBC (0); PARTIAL THROMBOPLASTIN TIME 47.3 SEC (23.5-35.8); SEGMENTED NEUTROPHILS % (MAN) 30 % (42-78); TOTAL CELLS COUNTED 100
[2019-06-01 20:11] LABS: ANISOCYTOSIS 2+; POLYCHROMASIA SLIGHT
[2019-06-01 20:14] LABS: PLATELET COMMENT DECREASED
[2019-06-01] MEDS ORDERED: PHYTONADIONE INJ 10 MG/1 ML AMPULE IV ONE (20:14)
[2019-06-01 20:18] LABS: CARBON DIOXIDE 7 mmol/L (22-30); GLUCOSE 521 mg/dL (75-110)
[2019-06-01] MEDS ORDERED: DEXTROSE 5%-WATER 250 ML with VASOPRESSIN 100 UNIT IV PRN ×2 (20:20)
--- NOTE | 2019-06-01 20:34 | PDOC CRITICAL CARE PROG REPORT ---
General Date:: 06/01/19 ICU Day:: 2 Hospital Day:: 2 Resuscitation Status: Full Code - Rescinded acutely by family Medical Power of Marine Engineer Cpvec: Daughter Events in the past 12 to 24 Hours:: Profound dyspnea during the night. Able to tolerate one unit of least non- compatible blood (LNCB). On steroids, H2 kaz. Diphenhydramine caused malaise. Patient had frequent examinations and follow-up and had been doing quite well. She was started on a diet. There was no hemoptysis or hematemesis melena or hematochezia. At approximately 6 PM after she had strained while going to the bathroom she became short of breath. She had wheezing and a nebulizer treatment was ordered. During the time awaiting breathing treatment delivery her hypoxia and respiratory distress worsened. BiPAP was ordered. She then became obtunded with down going pupils and unresponsive exam. Pupils were dilated. She was unable to be aroused. Prior to her admission discussion had been carried out with the patient and the family regarding this scenario. Patient self declared DNR DNI if she approached a life-threatening event related to her treatment. Her situation continue to decline and her family rescinded the DNR immediately before the patient went into cardiac arrest. She received standard ACLS treatment with every 3 to 5-minute epinephrine pushes. Monitor check revealed asystole with occasional complex. While the cardiac arrest was being treated I personally intubated her. The direct laryngoscopy showed blood in the tracheal orifice and after the ET tube was placed there was significant pulmonary hemorrhage. She received 100% oxygen via bag mask valve ventilation and attempts to suction. The bleeding appeared to be frothy in nature and not rivera bright red bleeding. She then received return of spontaneous circulation with an initial blood pressure that was quite low. She was given 0.1 of epi and vasopressin was ordered. Over time her blood pressure did improve and the vasopressin was stopped. I performed a quick bronchoscopy to evaluate the source of bleeding. My concern was that there was a mucosal lesion and the intent was to place the ET tube in a more appropriate position and or place a bronchial kaz. The bronchoscopic findings revealed Fuhs bleeding from mucosal membranes suggestive of DIC and or pulmonary hemorrhage related to acute cardiac event. I immediately gave her nebulized Lasix which is helpful in the situations. I performed a critical care ultrasound/basic echo which showed no pneumothorax, and lateral wall akinesis on the gastric view. There was dyskinesis of the septum. The right ventricle was functioning and not dilated. Her EKG earlier had showed some mild nonspecific lateral ST segment changes and the patient was asymptomatic at the time. Hematology has been consulted earlier in the day. Post cardiac arrest examination will be done however she does have spontaneous respirations. Discussed the prognosis and care with the family. Typically she would be a cand idate for TTM (therapeutic temperature modulation) however given her bleeding and autoimmune process she is at high risk for further bleeding. Arterial lines that were placed acquired pressure to control bleeding. Patient may require cryoprecipitate and Traxenemic acid bleeding becomes life-threate kamila. Have recheck the CBC. And her autoimmune hemolytic process she is at high risk for further hemorrhage since blood products will be difficult to obtain. Echocardiographic civil drafting technician did perform a formal echocardiogram approximately hour after her recovery. It did show recovery of the ventricular segments however the left ventricle appeared underfilled. She had significant respirophasic changes of the IVC. Review of systems relevant to events:: Currently receiving nearly compatible blood. Repeat evaluations over time showed improvement in color, dyspnea, overall appearance and no further shortness of breath. She did attempt to go to the bathroom and during straining became acutely short of breath. She developed wheezing and tachypnea without fever- She was given Lasix, breathing treatment. A chest x-ray was unable to be done during the acute phase secondary to her inability to lay flat. Reason for ICU Addmission:: Hypotension with anemia, - Medications: Medications reviewed and adjusted accordingly: Yes Physical Exam Vital Signs: Temp Pulse Resp BP Pulse Ox 99.1 F 128 H 32 H 111/57 L 92 06/01/19 06:00 06/01/19 03:37 06/01/19 03:37 06/01/19 02:30 06/01/19 03:37 Intake & Output 05/31/19 06/01/19 06/02/19 06:59 06:59 06:59 Intake Total 3289 Output Total 450 Balance 2839 Weight 77.6 kg Weight/Height Weight 77.6 kg Height 5 ft 6 in General appearance: PRESENT: no acute distress, cooperative, obese Exam: Pleasant nontoxic smiling 64-year-old white female no acute distress on first examination Kunal examination to her during her acute dyspneic phase showed a moderately distressed ill but nontoxic 64-year-old white female with pursed lip breathing. Eye exam: PRESENT: conjunctiva pale - Improved from 05.31.2019. ABSENT: conjunctival injection Mouth exam: PRESENT: neck supple Neck exam: ABSENT: carotid bruit, JVD, meningismus Respiratory exam: PRESENT: accessory muscle use, prolonged expiratory phas, tachypnea, wheezes - During acute distress phase. ABSENT: unlabored Cardiovascular exam: PRESENT: RRR, +S1, +S2, tachycardia Pulses: PRESENT: +1 pedal pulses bilateral GI/Abdominal exam: PRESENT: normal bowel sounds, soft. ABSENT: ascites, distended, guarding, mass, organolmegaly, rebound, tenderness Rectal exam: PRESENT: deferred Extremities exam: ABSENT: pedal edema Musculoskeletal exam: ABSENT: deformity, dislocation Neurological exam: PRESENT: alert, awake, oriented to person, oriented to place, oriented to time, oriented to situation, CN II-XII grossly intact. ABSENT: motor sensory deficit Psychiatric exam: PRESENT: anxious - During acute respiratory distress phase Skin exam: PRESENT: dry, intact, pallor - Has improved, warm. ABSENT: cyanosis, rash Tubes/Lines: ABSENT: Endotracheal Tube, Chest Tube, Central Line, Arterial Catheter, Dialysis catheter, Peg Tube, Nasogastic Tube, Other Laboratory/Radiographs Laboratory Results: 06/01/19 05:15 06/01/19 05:15 05/31/19 05/31/19 05/31/19 13:20 13:20 13:20 WBC 3.0 L RBC 1.66 L Hgb 5.0 L* Hct 14.2 L* MCV 86 MCH 30.2 MCHC 35.2 RDW 27.0 H Plt Count 34 L Seg Neutrophils % 64.4 Retic Count (auto) Sodium 133.9 L Potassium 4.5 Chloride 101 Carbon Dioxide 24 Anion Gap 9 BUN 33 H Creatinine 1.17 Est GFR ( Amer) 56 L Glucose 184 H Calcium 8.9 Phosphorus Magnesium Total Bilirubin 0.7 AST 22 Alkaline Phosphatase 51 Ammonia Total Protein 6.0 L Albumin 3.9 TSH Blood Type AB POSITIVE Antibody Screen POSITIVE 05/31/19 05/31/19 06/01/19 13:20 20:20 05:15 WBC 1.3 L* D 2.1 L RBC 1.10 L 1.62 L Hgb 3.4 L* 5.1 L Hct 9.7 L* 14.5 L* MCV 88 90 MCH 30.7 31.3 MCHC 35.0 34.8 RDW 26.7 H 22.5 H Plt Count 21 L* 55 L D Seg Neutrophils % Not Reportable 71.8 Retic Count (auto) 6.15 H Sodium Potassium Chloride Carbon Dioxide Anion Gap BUN Creatinine Est GFR ( Amer) Glucose Calcium Phosphorus Magnesium Total Bilirubin AST Alkaline Phosphatase Ammonia Total Protein Albumin TSH Blood Type Antibody Screen 06/01/19 06/01/19 06/01/19 05:15 05:15 05:15 WBC RBC Hgb Hct MCV MCH MCHC RDW Plt Count Seg Neutrophils % Retic Count (auto) Sodium 141.2 Potassium 4.5 Chloride 108 H Carbon Dioxide 16 L Anion Gap 17 BUN 33 H Creatinine 1.07 Est GFR ( Amer) > 60 Glucose 187 H Calcium 9.0 Phosphorus 3.4 Magnesium 1.3 L Total Bilirubin 4.6 H D AST 81 H Alkaline Phosphatase 57 Ammonia < 8.7 L Total Protein 6.8 Albumin 4.5 TSH 1.35 Blood Type Antibody Screen 05/31/19 13:20 Troponin I < 0.012 Impressions: Abdomen/Pelvis CT 05/31/19 00:00 IMPRESSION: NO SIGNIFICANT OR ACUTE FINDING IN THE ABDOMEN OR PELVIS ON CT SCAN WITH IV CONTRAST. All labs, radiographs, diagnostic studies and EKGs were personally reviewed: Yes In addition, reports of radiographic and diagnostic studies were read: Yes Assessment and Plan - Diagnosis (1) Coma Qualifiers: Coma timin hours or more after hospital admission Is this a current diagnosis for this admission?: Yes (2) Cardiac arrest with successful resuscitation Is this a current diagnosis for this admission?: Yes (3) Pulmonary hemorrhage Is this a current diagnosis for this admission?: Yes (4) Acute respiratory failure with hypoxia Is this a current diagnosis for this admission?: Yes Plan: Watch for TRALI (5) Hypovolemic shock Is this a current diagnosis for this admission?: Yes Plan: Resolved. This was not acute hemorhagic shock but related to acute RBC mass loss related to anemia. (6) Hypotension Qualifiers: Hypotension type: unspecified hypotension type Qualified Code(s): I95.9 - Hypotension, unspecified Is this a current diagnosis for this admission?: Yes Plan: Resolved. Secondary to hypovolemia related to hemolytic anemia (7) Anemia Qualifiers: Anemia type: iron deficiency Iron deficiency anemia type: inadequate dietary iron intake Qualified Code(s): D50.8 - Other iron deficiency anemias Is this a current diagnosis for this admission?: Yes (8) Metastatic squamous cell carcinoma involving lung with unknown primary site Qualifiers: Laterality: unspecified laterality Qualified Code(s): C78.00 - Secondary malignant neoplasm of unspecified lung; C80.1 - Malignant (primary) neoplasm, unspecified Is this a current diagnosis for this admission?: Yes (9) Squamous cell carcinoma of lung, stage IV Qualifiers: Laterality: unspecified laterality Qualified Code(s): C34.90 - Malignant neoplasm of unspecified part of unspecified bronchus or lung Is this a current diagnosis for this admission?: Yes (10) 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 We will follow cardiac enzymes and obtain EKG to determine possible etiology. She did develop what appears to be hemorrhagic pulmonary edema which is suggestive of TACO and or TRALI. We are in a difficult position because she appears to be hypovolemic and I am concerned that she may have a spontaneous retroperitoneal bleed and or significant hemolysis. The conundrum is that further blood products may worsen her situation. When she is stable will obtain a CT scan of the abdomen and pelvis as well as head. Equal and paramount concern is the possible need for tranexemic acid. 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 In the event that she has persistent and life-threatening bleeding with further hemorrhage we may be forced to use this to gain control. Importantly I have discussed with the blood bank and have asked for type- specific and the most near compatible blood. If we are unable to obtain this and or there is time latency to obtaining will be forced to give the least noncompatible or as near compatible as possible. Patient has a history of reactive airway disease and did develop wheezing. It is difficult to know which process began first. Her situation developed after straining while going to the bathroom. We will screen for DVT and if creatinine acceptable the possible diagnosis of PE. That being said the echocardiogram does not show evidence to support a massive VTE however it is under consideration. The most possible diagnosis is possible negative pressure pulmonary edema from exacerbation of reactive airway. We will continue nebulized treatments and monitor efficacy of nebulized Lasix which were given at the time of the hemorrhagic pulmonary edema. Awaiting chest x-ray to evaluate for TRALI. Given the small amount of blood that was given over a extended period of time this do es not appear to be TACO. To need to follow troponins, EKG and other labs. Waiting DIC panel Place interosseous access Hematologic consult Critical Time Critical Time (minutes): 130 Level of Care: ICU -: 1. The care of a critical patient is a dynamic process. This note is a franchise sales representative synopsis but static in nature. The timeframe for treatments given in order is not necessarily the actual time these treatments may have been done. 2. This patient requires critical care secondary to ongoing requirements for therapy not offered or safe outside the critical care environment. Transfer to a lower level of care will result in altered life or limb morbidity and mortality. 3. Multidisciplinary rounds completed. 4. ABCDE bundle addressed.
[2019-06-01 20:36] LABS: PHOSPHORUS 12.7 mg/dL (2.5-4.5); POTASSIUM 5.5 mmol/L (3.6-5.0)
[2019-06-01 20:37] LABS: ANION GAP 26 (5-19)
[2019-06-01] MEDS ORDERED: PHARMACY COMMUNICATION ORDER MC NR (20:45)
[2019-06-01] MEDS: IPRATROPIUM/ALBUTEROL 0.5-2.5 MG/3 ML AMPUL NEB SCH ×2 (20:45→23:42)
[2019-06-01] MEDS ORDERED: SODIUM BICARBONATE 8.4% INJ 50 MEQ/50 ML DISP.SYRIN IV ONE ×2 (20:50→23:30)
[2019-06-01] MEDS: DEXTROSE 5%-WATER 250 ML with NOREPINEPHRINE BITARTRATE 4 MG IV PRN ×2 (21:33)
[2019-06-01] MEDS ORDERED: ALBUMIN HUMAN 500 ML IV ONE ×2 (22:00→22:12)
[2019-06-01] MEDS ORDERED: PHYTONADIONE INJ 10 MG/1 ML AMPULE ONE (22:19)
--- NOTE | 2019-06-01 22:19 | RADIOLOGY REPORT (SQ) ---
EXAM DESCRIPTION: XR CHEST 1 VIEW COMPLETED DATE/TME: 06/01/2019 00:00 CLINICAL HISTORY: 64 years, Female, cardiac arrest COMPARISON: 06/01/2019 chest x-ray NUMBER OF VIEWS: 2 TECHNIQUE: AP views of the chest LIMITATIONS: None. FINDINGS: Endotracheal tube, with the tip approximately 4.4 cm above the cecilia. Endovascular graft projects along the right paratracheal region. Overlying artifact. Surgical clips project over the left hemithorax. Heart size is grossly stable. Osteopenia. Extensive airspace opacity of the left upper lobe and apex with air bronchograms. No discrete pneumothorax. Pulmonary edema with prominent interstitial markings. IMPRESSION: Interstitial edema. New dense consolidative change/airspace opacity in the left upper lobe/apex. Endotracheal tube in place copyright 2011 [employer]- All Rights Reserved
--- NOTE | 2019-06-01 23:04 | XCELERA REPORT ---
[address] [address] Transthoracic Echocardiogram Report Name: SAMI FERRER Age: 64 yrs Gender: Female : 1955 Patient Status: Inpatient Patient Location: ICU^605^A Study Date: 06/01/2019 08:02 PM Height: 66 in Weight: 171 lb BSA: 1.9 m2 Procedure: A two-dimensional transthoracic echocardiogram with color flow and Doppler was performed. Study Quality: Poor. Reason For Study: cardiac arrest History: cardiac arrest. Ordering Physician: JOSE MIRAMONTES Performed By: Trisha Euceda Interpretation Summary Very difficult study to interpret PProbably at least moderately dilated LV.Probable mild LVH.Probably severe diffuse hypokinesis with severely reduced LVEF. Probaly trace TR with mild Pulmonary hypertesion Cannot comment on LA Probably no MS or MR. There is no pericardial effusion. There is no aortic valve stenosis No aortic regurgitation is present. MMode/2D Measurements & Calculations RVDd: 1.7 cm LVIDd: 4.2 cm FS: 17.7 % Ao root diam: 2.7 cm IVSd: 0.91 cm LVIDs: 3.5 cm EDV(Teich): 78.5 ml Ao root area: 5.7 cm2 LVPWd: 0.99 cm ESV(Teich): 49.3 ml LA dimension: 2.1 cm EF(Teich): 37.1 % Doppler Measurements & Calculations MV E max deyvi: MV dec time: Ao V2 max: LV V1 max P.6 cm/sec 0.10 sec 102.5 cm/sec 3.1 mmHg MV A max deyvi: Ao max P.2 mmHgLV V1 max: 58.0 cm/sec 87.5 cm/sec MV E/A: 0.72 PA V2 max: PI end-d deyvi: TR max deyvi: 86.9 cm/sec 129.4 cm/sec 262.4 cm/sec PA max P.0 mmHg TR max P.5 mmHg Left Ventricle PProbably at least moderately dilated LV.Probable mild LVH.Probably severe diffuse hypokinesis with severely reduced LVEF. Right Ventricle The right ventricle is not well visualized secondary to technical limitations. Atria Right atrium not well visualized secondary to technical limitations. Cannot comment on LA. Mitral Valve Probably no MS or MR. Aortic Valve There is no aortic valve stenosis. No aortic regurgitation is present. Tricuspid Valve Probaly trace TR with mild Pulmonary hypertesion. Effusions There is no pericardial effusion. : JOSE MIRAMONTES, Darlyn
[2019-06-01 23:07] LABS: HEMATOCRIT 25.9 % (36.0-47.0); MEAN CORPUSCULAR HEMOGLOBIN 29.8 pg (27.0-33.4); MEAN CORPUSCULAR HGB CONC 31.9 g/dL (32.0-36.0); RED BLOOD COUNT 2.78 10^6/uL (3.72-5.28); RED CELL DISTRIBUTION WIDTH 19.1 % (11.5-14.0); WHITE BLOOD COUNT 10.6 10^3/uL (4.0-10.5)
[2019-06-01 23:08] LABS: ARTERIAL BLOOD BASE EXCESS -27.6 mmol/L; ARTERIAL BLOOD HCO3 6.5 mmol/L (20-24); ARTERIAL BLOOD O2 SATURATION 93.6 % (94-98); ARTERIAL BLOOD PCO2 39.8 mmHg (35-45); ARTERIAL BLOOD PO2 117.2 mmHg (80-100); ARTERIAL BLOOD TOTAL CO2 7.7 mmol/L (21-25)
[2019-06-01 23:09] LABS: ARTERIAL BLOOD FIO2 100%; MEAN CORPUSCULAR VOLUME 93 fl (80-97); PLATELET COUNT 84 10^3/uL (150-450)
[2019-06-01 23:11] LABS: ARTERIAL BLOOD PH 6.83 (7.35-7.45)
[2019-06-01 23:13] LABS: HEMOGLOBIN 8.3 g/dL (12.0-15.5)
[2019-06-01 23:30] LABS: BLOOD UREA NITROGEN 34 mg/dL (7-20); CALCIUM 8.1 mg/dL (8.4-10.2); GLUCOSE 307 mg/dL (75-110); POTASSIUM 5.3 mmol/L (3.6-5.0)
[2019-06-01] MEDS ORDERED: VECURONIUM BROMIDE INJ 10 MG VIAL IV ONE (23:30)
[2019-06-01] MEDS ORDERED: MIDAZOLAM 2 MG/2 ML INJ IV ONE (23:30)
[2019-06-01 23:35] LABS: CHLORIDE 104 mmol/L (98-107)
[2019-06-01 23:36] LABS: ANION GAP 32 (5-19)
[2019-06-01 23:37] LABS: CARBON DIOXIDE 6 mmol/L (22-30)
[2019-06-01] MEDS ORDERED: INSULIN REG, HUMAN 100 UNIT/ML 3 ML VIAL (PYX) SUBCUT ONE (23:55)
--- NOTE | 2019-06-02 00:08 | Operative Report ---
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 Patient experienced respiratory failure and cardiac arrest this evening for which she was intubated, had an emergent bronchoscopy, as well as necessitated the need for emergent arterial catheter access for hemodynamic monitoring. Procedure: arterial line placement Site selection: right femoral artery given cardiac arrest event, ROSC was obtained immediately prior to access attempt and full PPE was donned placing the line in sterile fashion. Pre-procedure Dx: cardiac arrest, shock Post-procedure Dx: cardiac arrest, shock Anesthesia 3 mL 1% Lidocaine without epinephrine Complications: patient coagulopathic with right femoral region hematoma which occurred immediately upon needle stick x1 attempt EBL: 30 mL Findings: successful right femoral artery cannulation with presence of coagulopathy Proceduralist: AKIL Rossi Central Processing Technician: Alysha Mccracken RN Details: Patient placed in proper procedural position followed by prepping and draping in usual sterile fashion. Using ultrasound guidance, the right common femoral artery was identified. An 18g introducer needle was visualized entering the right common femoral artery with return of pulsatile blood from the back of the needle. A guide wire was then advanced through the needle into the right femoral artery with ease and the needle was removed over the wire. The wire was confirmed to be in the right femoral artery in two views via ultrasound, but there was also a notable expanding hematoma for which manual pressure was immediately held for a 5 minutes. Next, a small superficial skin tab incision was made over the wire to facilitate easier passage of the arterial catheter. An 18 gauge 16 cm catheter was then advanced over the wire into the right femoral artery and the guide wire was subsequently removed, again noting pulsatile blood from the end of the catheter. A transducer cable was hooked up to the catheter noting a good pulsatile arterial waveform. 10 mL of 1% Lidocaine with Epinephrine was injected into subcutaneous tissue in femoral region to attempt vasoconstriction and cessation of bleeding. The catheter was sutured into place and a sterile occlusive transparent dressing was applied over the top of gauze given the coagulopathy. Manual pressure had to be held by my veterinary technician assistant (whom was also in sterile PPE) throughout the entirety of the procedure; therefore, a Femstop device was then applied to assist with tamponading the bleeding for which I will personally continue to reassess, initial pressure 25 mm Hg. Remains with distal pulsating posterior tibial artery signal on ultrasound. Indication for Procedure: Cardiac arrest, shock Date: 06/01/19 - Time: around 19:20 pm Provider: LAMBERTO WESTFALL
[2019-06-02] MEDS: MILRINONE LACTATE/D5W 20 MG/100 ML RTUINJ IV PRN ×2 (00:45→07:32)
[2019-06-02] MEDS: WATER FOR INJECTION,STERILE 1,000 ML with SODIUM BICARBONATE 150 MEQ IV PRN ×4 (00:52→05:29)
[2019-06-02] MEDS ORDERED: INSULIN REG, HUMAN 100 UNIT/ML 3 ML VIAL (PYX) ONE (00:56)
[2019-06-02 01:45] LABS: ARTERIAL BLOOD BASE EXCESS -20.3 mmol/L; ARTERIAL BLOOD H2CO3 1.08 mmol/L (1.05-1.35); ARTERIAL BLOOD HCO3 9.2 mmol/L (20-24); ARTERIAL BLOOD O2 SATURATION 86.2 % (94-98); ARTERIAL BLOOD PO2 72.8 mmHg (80-100); ARTERIAL BLOOD TOTAL CO2 10.3 mmol/L (21-25)
[2019-06-02 01:46] LABS: ARTERIAL BLOOD FIO2 100%
[2019-06-02 01:47] LABS: ARTERIAL BLOOD PH 7.02 (7.35-7.45)
[2019-06-02 01:48] LABS: FIBRINOGEN 268 mg/dL (209-497); INTERNATIONAL RATION (INR) 3.26
[2019-06-02] MEDS ORDERED: NORMAL SALINE 250 ML IV PRN (01:58)
[2019-06-02 01:59] LABS: HEMATOCRIT 23.3 % (36.0-47.0); MEAN CORPUSCULAR HEMOGLOBIN 29.6 pg (27.0-33.4); MEAN CORPUSCULAR HGB CONC 32.3 g/dL (32.0-36.0); MEAN CORPUSCULAR VOLUME 92 fl (80-97); RED BLOOD COUNT 2.54 10^6/uL (3.72-5.28); RED CELL DISTRIBUTION WIDTH 19.1 % (11.5-14.0); WHITE BLOOD COUNT 8.3 10^3/uL (4.0-10.5)
[2019-06-02] MEDS ORDERED: GLUCAGON,HUMAN RECOMB 1 MG INJ IM PRN (02:11)
[2019-06-02] MEDS ORDERED: DEXTROSE 50%-WATER 25 GM/50 ML DISP.SYRIN IV PRN ×2 (02:11)
[2019-06-02] MEDS ORDERED: DEXTROSE 40% GEL 15 GM TUBE PO PRN ×2 (02:11)
[2019-06-02] MEDS ORDERED: ALBUMIN HUMAN 500 ML IV ONE (02:12)
[2019-06-02 02:21] LABS: PLATELET COUNT 76 10^3/uL (150-450)
[2019-06-02 02:23] LABS: HEMOGLOBIN 7.5 g/dL (12.0-15.5)
[2019-06-02 02:44] LABS: BLOOD UREA NITROGEN 39 mg/dL (7-20); CALCIUM 7.5 mg/dL (8.4-10.2); CARBON DIOXIDE 13 mmol/L (22-30); CHLORIDE 102 mmol/L (98-107); GLUCOSE 248 mg/dL (75-110); POTASSIUM 4.6 mmol/L (3.6-5.0)
[2019-06-02 02:51] LABS: ANION GAP 28 (5-19)
[2019-06-02] MEDS: IPRATROPIUM/ALBUTEROL 0.5-2.5 MG/3 ML AMPUL NEB SCH ×3 (03:08→14:19)
[2019-06-02] MEDS ORDERED: NOREPINEPHRINE BITARTRATE INJ/PF 4 MG/4 ML SDV IV ONE ×3 (03:36→14:15)
[2019-06-02] MEDS ORDERED: DIPHENHYDRAMINE HCL 50 MG/ML VIAL IV ONE (04:30)
[2019-06-02] MEDS: DEXTROSE 5%-WATER 250 ML with NOREPINEPHRINE BITARTRATE 4 MG IV PRN ×6 (05:15→11:05)
[2019-06-02] MEDS ORDERED: VECURONIUM BROMIDE INJ 10 MG VIAL IV ONE (06:20)
[2019-06-02] MEDS ORDERED: MIDAZOLAM 2 MG/2 ML INJ ONE (06:20)
[2019-06-02] MEDS: METHYLPREDNISOLONE INJ 125 MG/2 ML SDV IV SCH (06:24)
--- NOTE | 2019-06-02 07:22 | RADIOLOGY REPORT (SQ) ---
CT CHEST, ABDOMEN, AND PELVIS WITH INTRAVENOUS CONTRAST: 06/02/2019 6:11 AM TOBACCO CURER HISTORY: 64-year old with concern for hemorrhage. COMPARISON: CT the chest from 11/13/2018 TECHNIQUE: Axial contiguous images were obtained from the lung apices to the proximal femurs with intravenous intravenous contrast administered. Sagittal and coronal reconstructions were also obtained and reviewed. This exam was performed according to our departmental dose-optimization program, which includes automated exposure control, adjustment of the mA and/or KV according to the patient's size and/or use of iterative reconstruction technique. FINDINGS: The heart size is normal in size. No significant axillary lymphadenopathy is seen. There is a prevascular lymph node measuring up to 1.4 cm in short axis dimension.. The thoracic aorta is normal in size. There is a stent seen at the SVC. The main pulmonary artery is within normal limits of size. No focal filling defect is seen within the visualized pulmonary arteries. An endotracheal tube tip is seen approximately 2.8 cm above the cecilia. There is complete opacification of the left hemithorax associated with a moderate left effusion. There is a moderate right effusion with some nodular airspace opacities overlying this. There is no evidence of pleural effusions or a pneumothorax. The visualized hepatic parenchyma is unremarkable. No focal enhancing lesion is seen. The gallbladder is surgically absent. The spleen, pancreas, and adrenals are normal in size and contour. The kidneys demonstrate no evidence of hydronephrosis. There is patchy enhancement within both kidneys which may be due to poor renal perfusion. The urinary bladder is decompressed by Yarbrough catheter. The stomach is not well distended. The stomach is decompressed by a nasogastric tube. There is mild prominence of the small bowel which could reflect evidence of enteritis. No pericolonic inflammatory stranding is seen. There is no evidence of pneumoperitoneum. Trace free fluid is seen within the lower pelvis and upper abdomen.. The aorta and IVC appear normal in size. There is mild to moderate atherosclerotic calcification of the aorta and into the iliac arteries. There is a right femoral arterial line in the left lower extremity femoral venous line present. There is stranding within the bilateral inguinal regions, which may be iatrogenic. The visualized bilateral common femoral through mid popliteal arteries appear patent. No gross contrast extravasation is seen. No significantly enlarged lymph nodes are seen in the abdomen or pelvis. Review of the bone show no evidence of any suspicious lytic or blastic lesions. IMPRESSION: There is complete opacification at the left hemithorax. There are airspace opacities at the right upper and lower lobes. Moderate bilateral effusions are present. This could be due to a developing malignancy and/or infection. There is patchy enhancement of the kidneys which may be due to poor renal function. Is stranding within the bilateral inguinal regions which is likely iatrogenic.
--- NOTE | 2019-06-02 07:25 | RADIOLOGY REPORT (SQ) ---
CT of the head: 06/02/2019 6:21 AM WATCH AND CLOCK REPAIRER HISTORY: 84-year-old patient with intracranial hemorrhage. COMPARISON: None available TECHNIQUE: Multiple axial contiguous images were obtained through the head without intravenous contrast administered. This exam was performed according to our departmental dose-optimization program, which includes automated exposure control, adjustment of the mA and/or KV according to the patient's size and/or use of iterative reconstruction technique. FINDINGS: The ventricles are within normal limits for size. Both orbits appear unremarkable. The mastoid air cells appear clear. There is mucoperiosteal thickening at the ethmoid and left maxillary sinuses. The calvarium is intact. No extra-axial fluid collection is seen. The shea-white matter differentiation is within normal limits. No midline shift or mass effect is apparent. There are no findings to suggest acute intracranial hemorrhage. Endotracheal and enteric tubes are partially visualized. IMPRESSION: No acute intracranial hemorrhage is seen.
[2019-06-02] MEDS: INSULIN REG, HUMAN 100 UNIT/ML 3 ML VIAL (PYX) SUBCUT SCH ×4 (07:27→14:21)
[2019-06-02 07:32] LABS: ARTERIAL BLOOD BASE EXCESS -19.8 mmol/L; ARTERIAL BLOOD H2CO3 1.35 mmol/L (1.05-1.35); ARTERIAL BLOOD HCO3 10.5 mmol/L (20-24); ARTERIAL BLOOD O2 SATURATION 85.8 % (94-98); ARTERIAL BLOOD PCO2 44.8 mmHg (35-45); ARTERIAL BLOOD PO2 75.1 mmHg (80-100); ARTERIAL BLOOD TOTAL CO2 11.8 mmol/L (21-25)
[2019-06-02 07:33] LABS: ARTERIAL BLOOD FIO2 100%
[2019-06-02 07:35] LABS: ARTERIAL BLOOD PH 6.99 (7.35-7.45); MEAN CORPUSCULAR HEMOGLOBIN 31.1 pg (27.0-33.4); MEAN CORPUSCULAR HGB CONC 32.8 g/dL (32.0-36.0); MEAN CORPUSCULAR VOLUME 95 fl (80-97); RED BLOOD COUNT 2.54 10^6/uL (3.72-5.28); RED CELL DISTRIBUTION WIDTH 16.6 % (11.5-14.0); WHITE BLOOD COUNT 4.3 10^3/uL (4.0-10.5)
[2019-06-02 07:42] LABS: INTERNATIONAL RATION (INR) 3.12; PROTHROMBIN TIME 32.8 SEC (11.4-15.4)
[2019-06-02 07:43] LABS: PARTIAL THROMBOPLASTIN TIME 46.1 SEC (23.5-35.8)
[2019-06-02 07:49] LABS: ALBUMIN 2.3 g/dL (3.5-5.0); ALKALINE PHOSPHATASE 146 U/L (38-126); BILIRUBIN,DIRECT 2.2 mg/dL (0.0-0.4); BILIRUBIN,TOTAL 2.9 mg/dL (0.2-1.3); BLOOD UREA NITROGEN 40 mg/dL (7-20); GLUCOSE 263 mg/dL (75-110); PHOSPHORUS 11.7 mg/dL (2.5-4.5); POTASSIUM 4.2 mmol/L (3.6-5.0); TOTAL PROTEIN 3.9 g/dL (6.3-8.2)
[2019-06-02 07:54] LABS: CARBON DIOXIDE 12 mmol/L (22-30); CHLORIDE 97 mmol/L (98-107); PLATELET COUNT 37 10^3/uL (150-450)
[2019-06-02 07:55] LABS: ASPARTATE AMINO TRANSFERASE 574 U/L (14-36)
[2019-06-02 07:57] LABS: HEMOGLOBIN 7.9 g/dL (12.0-15.5)
[2019-06-02 07:59] LABS: ANION GAP 28 (5-19)
[2019-06-02 08:00] LABS: CALCIUM 6.6 mg/dL (8.4-10.2)
[2019-06-02 08:01] LABS: ABSOLUTE LYMPHOCYTES# (MANUAL) 1.8 10^3/uL (0.5-4.7); ABSOLUTE MONOCYTES # (MANUAL) 0.2 10^3/uL (0.1-1.4); BAND NEUTROPHILS % (MANUAL) 9 % (3-5); BASOPHILS % (MANUAL) 0 % (0-2); EOSINOPHILS % (MANUAL) 0 % (0-6); LYMPHOCYTES % (MANUAL) 40 % (13-45); METAMYELOCYTES % (MANUAL) 1 % (0-1); MONOCYTES % (MANUAL) 4 % (3-13); SEGMENTED NEUTROPHILS % (MAN) 43 % (42-78); TOTAL CELLS COUNTED 100
[2019-06-02 08:05] LABS: ANISOCYTOSIS 1+; FIBRINOGEN 105 mg/dL (209-497); PLATELET LARGE PRESENT; POIKILOCYTOSIS SLIGHT; POLYCHROMASIA 2+; SCHISTOCYTES SLIGHT
[2019-06-02 08:07] LABS: MYELOCYTES % (MANUAL) 1 % (0); NUCLEATED RED BLOOD CELLS 12 /100 WBC (0)
[2019-06-02 08:08] LABS: PLATELET COMMENT DECREASED
--- NOTE | 2019-06-02 09:02 | Operative Report ---
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 Patient experienced respiratory failure and cardiac arrest this evening for which she was intubated, had an emergent bronchoscopy, arterial line placement, two intraosseus IV's due to issues with coagulopathy, and now needs further additional access in the form of a central line to provide all of the life sustaining treatment the family still wishes to pursue at this time. Indication for Procedure: shock due to hemorrhage and heart failure Date: 06/01/19 - Time: around 19:20 pm Provider: LAMBERTO WESTFALL - Central Line Left Femoral Time completed: 06:15 Consent obtained: Yes - emergent with family verbal consent to do everything Central line pre-insertion: Sterile PPE donned, Chloraprep applied, Sterile drapes applied Central line size (Fr.): 7 Central line lumen type: Triple Anesthetic type: 1% Lidocaine mL's of anesthesia: 2 Ultrasound guided: Yes CM at insertion site: 20 Line secured with sutures: Yes Central line post-insertion: Blood return from lumens, Biopatch applied, Sutured, Sterile dressing applied Number of attempts: 1 Complications: No Notes: 06/02/19 07:42 Procedure: central line insertion Indication: Hypovolemic shock Proceduralist: AKIL Rossi Anesthesia: 2 mL of 1% Lidocaine EBL: 3 mL Complications: none Findings: successful cannulation of left femoral vein Patient placed in proper procedural position followed by prepping and draping in usual sterile fashion. Utilizing ultrasound, the left common femoral vein was identified and free of thrombus at this time. An 18 gauge introducer needle was inserted through the skin while attached to a syringe under negative pressure and visualized entering the left femoral vein with a brisk return of blood. The syringe was detached from the needle, noting a slow dripping of blood from the needle. A guide wire was then inserted through the needle into the left femoral vein and the needle was removed over the wire. The wire was then confirmed to be in the left femoral vein in two views via ultrasound. Next, a small superficial skin stab incision was made on top of the wire to prepare for dilation. A dilator was then passed over the wire to dilate the subcutaneous tissue and was subsequently removed over the wire. A 7 Fr 20 cm catheter was then advanced over the wire into the left femoral vein and the guide wire was removed, again noting a slow dripping of blood from the distal lumen of the catheter. All lumens aspirated and flushed easily. Positive pressure caps in place. A biopatch was applied, the catheter was sutured into place, and a sterile transparent occlusive dressing was applied. Patient tolerated procedure well.
[2019-06-02] MEDS: FAMOTIDINE INJ/PF 20 MG/2 ML SDV IV SCH (09:33)
--- NOTE | 2019-06-02 10:43 | EKG REPORT ---
SEVERITY:- BORDERLINE ECG - SINUS TACHYCARDIA BORDERLINE RIGHT AXIS DEVIATION BORDERLINE T ABNORMALITIES, INFERIOR LEADS : Confirmed by: Nadia Gonzalez 02-Jun-2019 10:42:51
[2019-06-02 11:03] LABS: PATH REVIEW PATHOLOGIST REVIEWED
[2019-06-02 11:24] VITALS: BP 109/46
[2019-06-02 11:32] LABS: WHITE BLOOD COUNT 8.6 10^3/uL (4.0-10.5)
--- NOTE | 2019-06-02 11:38 | PDOC CONSULTATION ---
Consultation Consult Date: 06/02/19 Provider Consulted: LEIGH RUIZ Consult reason:: Hematology/Oncology consultation was requested for patient with a metastatic small cell lung cancer and hemolytic anemia. History of Present Illness Admission Date/PCP: 05/31/19 16:14 MILTON PALENCIA PA-C History of Present Illness: SAMI FERRER is a 64 year old female who was diagnosed with Small Cell Lung Cancer in 2016. She underwent chemo and radiation at that time. In Nov 2018, she was found to have mets to the brain. Most recently, about 3 months ago, a new spot was found on the lung. She was actively undergoing chemotherapy in [place] with Dr. Lorenzo Parnell. Although I do not have the records as to what agents she was receiving, family is certain that there was no form of immunotherapy, only chemo. 2 Days prior to admission, she had increasing weakness, dizziness and fatigue which progressed over 24 hours. She presented to the ED and was found to have HGB 5, then it dropped to 3. No recent fevers or infections. She was diagnosed with sepsis, hemolytic anemia, and pancytopenia presumably from the chemo. She has been in the ICU and received steroids and "least incompatible" blood transfusions, but has continued to decline. Last night, she was intubated and today has continued bleeding from right groin and progressive evidence of DIC. Past Medical History Cardiac Medical History: Reports: Coronary Artery Disease - S/p stents. On Eliquis for questionable VTE, Hyperlipidema, Hypertension Denies: Atrial Fibrillation, Congestive Heart Failure, DVT, Myocardial Infarction, Peripheral Vascular Disease, Pulmonary Embolism Pulmonary Medical History: Reports: Chronic Obstructive Pulmonary Disease (COPD) Denies: Asthma Neurological Medical History: Denies: Seizures Endocrine Medical History: Reports: Hypothyroidism Denies: Diabetes Mellitus Type 1, Diabetes Mellitus Type 2, Hyperthyroidism Malignancy Medical History: Reports: Lung Cancer - With brain metastases, Other GI Medical History: Denies: Cirrhosis, Hepatitis Musculoskeltal Medical History: Reports: Arthritis Denies: Gout Skin Medical History: Denies: Eczema, Psoriasis Psychiatric Medical History: Denies: Depression Hematology: Denies: Anemia, Bleeding Tendencies Past Surgical History Past Surgical History: Reports: Vascular Surgery - Vena cava stenting to relieve tumor obstruction, Other - Gamma knife neurosurgery for brain metastases x2 Social History Lives with: Family Smoking Status: Current Every Day Smoker Frequency of Alcohol Use: None Hx Recreational Drug Use: No Drugs: None Hx Prescription Drug Abuse: No - Advance Directive Resuscitation Status: Do Not Resuscitate Family History Family History: COPD, Hypertension Parental Family History Reviewed: Yes Children Family History Reviewed: Yes Sibling(s) Family History Reviewed.: No Medication/Allergy Home Medications: Apixaban [Eliquis 5 mg Tablet] 5 mg PO BID 05/31/19 Benazepril HCl [Lotensin 20 mg Tablet] 20 mg PO DAILY 05/31/19 Ferrous Sulfate [Feosol 325 mg Tablet] 325 mg PO MEALS 05/31/19 Fluticasone Propionate [Flonase Nasal Redding 50 Mcg/Redding 16 gm] 1 spray NAREB DAILY 05/31/19 Furosemide [Lasix 20 mg Tablet] 20 mg PO QAM 05/31/19 Insulin Aspart [Novolog Flexpen] 5 unit SUBCUT AC 05/31/19 Loperamide HCl [Imodium 2 mg Capsule] 2 mg PO QIDP PRN 05/31/19 Metoprolol Succinate [Toprol Xl] 100 mg PO DAILY 05/31/19 Mupirocin [Bactroban 2% Ointment 22 gm] 1 applic TP BID 05/31/19 Ondansetron [Zofran Odt 4 mg Tablet] 4 mg PO Q6HP PRN 05/31/19 Potassium Chloride [Klor-Con M10] 10 meq PO DAILY 05/31/19 Pravastatin Sodium [Pravachol] 20 mg PO DAILY 05/31/19 Allergies/Adverse Reactions: codeine Allergy (Verified 05/31/19 11:32) Review of Systems ROS unobtainable: Due to endotracheal tube Physical Exam Vital Signs: Temp Pulse Resp BP Pulse Ox 97.0 F 120 H 15 153/54 H 91 L 06/02/19 08:00 06/02/19 08:00 06/02/19 08:00 06/02/19 08:00 06/01/19 23:42 Intake & Output 06/01/19 06/02/19 06/03/19 06:59 06:59 06:59 Intake Total 3289 3671 175 Output Total 450 60 0 Balance 2839 3611 175 Weight 77.6 kg 82.3 kg General appearance: PRESENT: no acute distress, obese Exam: 64 year old female. On ventilator in ICU, sedated. Head exam: PRESENT: normocephalic Eye exam: PRESENT: conjunctiva pale Mouth exam: PRESENT: other - ET tube in place. Respiratory exam: PRESENT: decreased breath sounds Cardiovascular exam: PRESENT: RRR, tachycardia Pulses: PRESENT: +1 pedal pulses bilateral GI/Abdominal exam: PRESENT: hypoactive bowel sounds, soft Gentrourinary exam: PRESENT: other - Right groin with pressure dressing but still with evidence of active bleeding. Extremities exam: ABSENT: pedal edema Neurological exam: PRESENT: other - Sedated and unresponsive. Skin exam: PRESENT: other - Echymoses over legs, nurses report area is expanding. Results Laboratory Results: 06/02/19 06:59 06/02/19 06:59 05/31/19 05/31/19 06/01/19 13:20 20:20 19:20 WBC 1.3 L* D 8.1 D RBC 3.77 Hgb 11.0 L D Hct 36.8 MCV 98 H D MCH 29.1 MCHC 29.8 L RDW 19.4 H Plt Count 77 L Seg Neutrophils % Not Reportable Carbonic Acid HCO3/H2CO3 Ratio ABG pH ABG pCO2 ABG pO2 ABG HCO3 ABG O2 Saturation ABG Base Excess FiO2 Sodium Potassium Chloride Carbon Dioxide Anion Gap BUN Creatinine Est GFR ( Amer) Est GFR (Non-Af Amer) Glucose Lactic Acid Calcium Ionized Calcium [place] Phosphorus Magnesium Total Bilirubin AST Alkaline Phosphatase Ammonia Total Protein Albumin Blood Type AB POSITIVE Antibody Screen POSITIVE 06/01/19 06/01/19 06/01/19 19:20 19:20 19:20 WBC RBC Hgb Hct MCV MCH MCHC RDW Plt Count Seg Neutrophils % Carbonic Acid HCO3/H2CO3 Ratio ABG pH ABG pCO2 ABG pO2 ABG HCO3 ABG O2 Saturation ABG Base Excess FiO2 Sodium 137.7 Potassium 5.5 H D Chloride 105 Carbon Dioxide 7 L* Anion Gap 26 H BUN 34 H Creatinine 1.78 H Est GFR ( Amer) 35 L Est GFR (Non-Af Amer) Glucose 521 H* Lactic Acid 16.3 H Calcium 8.3 L Ionized Calcium [place] Phosphorus 12.7 H D Magnesium 3.6 H D Total Bilirubin 2.4 H AST 212 H Alkaline Phosphatase 61 Ammonia 97.6 H Total Protein 5.3 L Albumin 3.4 L Blood Type Antibody Screen 06/01/19 06/01/19 06/01/19 22:34 22:34 22:34 WBC 10.6 H RBC 2.78 L Hgb 8.3 L D Hct 25.9 L MCV 93 D MCH 29.8 MCHC 31.9 L RDW 19.1 H Plt Count 84 L Seg Neutrophils % Carbonic Acid 1.20 HCO3/H2CO3 Ratio 5:1 ABG pH 6.83 L* ABG pCO2 39.8 ABG pO2 117.2 H ABG HCO3 6.5 L ABG O2 Saturation 93.6 L ABG Base Excess -27.6 FiO2 100% Sodium 141.7 Potassium 5.3 H Chloride 104 Carbon Dioxide 6 L* Anion Gap 32 H BUN 34 H Creatinine 2.06 H Est GFR ( Amer) 29 L Est GFR (Non-Af Amer) Glucose 307 H Lactic Acid Calcium 8.1 L Ionized Calcium [place] 1.16 Phosphorus Magnesium Total Bilirubin AST Alkaline Phosphatase Ammonia Total Protein Albumin Blood Type Antibody Screen 06/01/19 06/02/19 06/02/19 22:34 01:20 01:20 WBC RBC Hgb Hct MCV MCH MCHC RDW Plt Count Seg Neutrophils % Carbonic Acid 1.08 HCO3/H2CO3 Ratio 8:1 ABG pH 7.02 L* ABG pCO2 36.0 ABG pO2 72.8 L ABG HCO3 9.2 L ABG O2 Saturation 86.2 L ABG Base Excess -20.3 FiO2 100% Sodium Cancelled Potassium Cancelled Chloride Cancelled Carbon Dioxide Cancelled Anion Gap Cancelled BUN Cancelled Creatinine Cancelled Est GFR ( Amer) Cancelled Est GFR (Non-Af Amer) Cancelled Glucose Cancelled Lactic Acid 16.4 H Calcium Cancelled Ionized Calcium [place] Phosphorus Magnesium Total Bilirubin AST Alkaline Phosphatase Ammonia Total Protein Albumin Blood Type Antibody Screen 06/02/19 06/02/19 06/02/19 01:20 01:20 02:00 WBC 8.3 RBC 2.54 L Hgb 7.5 L Hct 23.3 L MCV 92 MCH 29.6 MCHC 32.3 RDW 19.1 H Plt Count 76 L Seg Neutrophils % Carbonic Acid HCO3/H2CO3 Ratio ABG pH ABG pCO2 ABG pO2 ABG HCO3 ABG O2 Saturation ABG Base Excess FiO2 Sodium 142.5 Potassium 4.6 Chloride 102 Carbon Dioxide 13 L Anion Gap 28 H BUN 39 H Creatinine 2.21 H Est GFR ( Amer) 27 L Est GFR (Non-Af Amer) Glucose 248 H Lactic Acid 18.4 H Calcium 7.5 L Ionized Calcium [place] Phosphorus Magnesium Total Bilirubin AST Alkaline Phosphatase Ammonia Total Protein Albumin Blood Type Antibody Screen 06/02/19 06/02/19 06/02/19 06:59 06:59 06:59 WBC 4.3 RBC 2.54 L Hgb 7.9 L Hct 24.0 L MCV 95 MCH 31.1 MCHC 32.8 RDW 16.6 H Plt Count 37 L Seg Neutrophils % Not Reportable Carbonic Acid 1.35 HCO3/H2CO3 Ratio 7:1 ABG pH 6.99 L* ABG pCO2 44.8 ABG pO2 75.1 L ABG HCO3 10.5 L ABG O2 Saturation 85.8 L ABG Base Excess -19.8 FiO2 100% Sodium 136.6 L Potassium 4.2 Chloride 97 L Carbon Dioxide 12 L Anion Gap 28 H BUN 40 H Creatinine 2.66 H Est GFR ( Amer) 22 L Est GFR (Non-Af Amer) Glucose 263 H Lactic Acid Calcium 6.6 L* Ionized Calcium [place] Phosphorus 11.7 H Magnesium 2.9 H Total Bilirubin 2.9 H AST 574 H Alkaline Phosphatase 146 H Ammonia Total Protein 3.9 L Albumin 2.3 L Blood Type Antibody Screen 06/02/19 06:59 WBC RBC Hgb Hct MCV MCH MCHC RDW Plt Count Seg Neutrophils % Carbonic Acid HCO3/H2CO3 Ratio ABG pH ABG pCO2 ABG pO2 ABG HCO3 ABG O2 Saturation ABG Base Excess FiO2 Sodium Potassium Chloride Carbon Dioxide Anion Gap BUN Creatinine Est GFR ( Amer) Est GFR (Non-Af Amer) Glucose Lactic Acid 19.2 H Calcium Ionized Calcium [place] Phosphorus Magnesium Total Bilirubin AST Alkaline Phosphatase Ammonia Total Protein Albumin Blood Type Antibody Screen 05/31/19 06/01/19 06/02/19 13:20 19:20 07:00 Troponin I < 0.012 2.000 9.150 Impressions: Chest X-Ray 06/01/19 00:00 IMPRESSION: Interstitial edema. New dense consolidative change/airspace opacity in the left upper lobe/apex. Endotracheal tube in place copyright 2010 [employer]- All Rights Reserved Abdomen/Pelvis CT 06/02/19 06:00 IMPRESSION: There is complete opacification at the left hemithorax. There are airspace opacities at the right upper and lower lobes. Moderate bilateral effusions are present. This could be due to a developing malignancy and/or infection. There is patchy enhancement of the kidneys which may be due to poor renal function. Is stranding within the bilateral inguinal regions which is likely iatrogenic. Chest CT 06/02/19 06:00 IMPRESSION: There is complete opacification at the left hemithorax. There are airspace opacities at the right upper and lower lobes. Moderate bilateral effusions are present. This could be due to a developing malignancy and/or infection. There is patchy enhancement of the kidneys which may be due to poor renal function. Is stranding within the bilateral inguinal regions which is likely iatrogenic. Head CT 06/02/19 06:00 IMPRESSION: No acute intracranial hemorrhage is seen. 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 She has been transfused pRBCs and PLT during this admission. Most recent Fibrinogen is low, suggesting DIC. She may also have some degree of TTP. LDH elevated, Haptoglobin still pending. (2) Squamous cell carcinoma of lung, stage IV Qualifiers: Laterality: unspecified laterality Qualified Code(s): C34.90 - Malignant neoplasm of unspecified part of unspecified bronchus or lung Is this a current diagnosis for this admission?: Yes Plan: Family seems sure that she has not received any type of immune modulator as part of her treatment, although current symptoms would be more common with this type of agent. She may also simply have sepsis due to the chemo. Family understand that no further treatment for her cancer will be possible. - Plan Summary Plan Summary: I had a long discussion with patient's children and other family members about current situation. I have explained that patient is not likely to survive. Patient also made her wishes known that she wants no further life sustaining measures. We discussed changing her status to comfort measures only and allowing family to spend time with her, make her comfortable, and let her rest, instead of continued fighting, as prognosis is very, very poor. They are in agreement. They would like to call rest of family members to be present with patient today. No further labs, new treatments, etc will be added. I have d iscussed this with wool shearer as well. All are in agreement. I am available for further discussion/questions.
--- NOTE | 2019-06-02 11:46 | PDOC CRITICAL CARE PROG REPORT ---
General Date:: 06/02/19 ICU Day:: 2 Ventilator Day:: 1 Hospital Day:: 2 Resuscitation Status: Do Not Resuscitate Medical Power of Home Attendant: Daughter Events in the past 12 to 24 Hours:: Continuing in downward spiral. Now in DIC, family gathering. Review of systems relevant to events:: Hemetologic, respiratory, renal. CV. Reason for ICU Addmission:: Hypotension with anemia, S/P cardiac arrest. - Medications: Medications reviewed and adjusted accordingly: Yes Vasopressors:: Levophed. Sedation:: None Physical Exam Vital Signs: Temp Pulse Resp BP Pulse Ox 97.3 F 121 H 15 109/46 L 91 L 06/02/19 10:00 06/02/19 10:03 06/02/19 10:00 06/02/19 10:00 06/01/19 23:42 Intake & Output 06/01/19 06/02/19 06/03/19 06:59 06:59 06:59 Intake Total 3289 3671 429 Output Total 450 60 0 Balance 2839 3611 429 Weight 77.6 kg 82.3 kg Weight/Height Weight 82.3 kg Height 5 ft 6 in General appearance: PRESENT: no acute distress Head exam: PRESENT: atraumatic, normocephalic Eye exam: PRESENT: conjunctiva pink, EOMI, PERRLA. ABSENT: scleral icterus Ear exam: PRESENT: normal external ear exam Mouth exam: PRESENT: dry mucosa Neck exam: ABSENT: carotid bruit, JVD, lymphadenopathy, thyromegaly Respiratory exam: PRESENT: crackles - Crackles and rhonchi louder on R. Less sounds on L, rhonchi, other Cardiovascular exam: PRESENT: tachycardia Vascular exam: PRESENT: pallor GI/Abdominal exam: PRESENT: normal bowel sounds, soft. ABSENT: distended, guarding, mass, organolmegaly, rebound, tenderness Rectal exam: PRESENT: deferred Extremities exam: PRESENT: other - Both feet are pale and cool, not cold. Neurological exam: PRESENT: other - Obtunded Skin exam: PRESENT: pallor Tubes/Lines: PRESENT: Endotracheal Tube, Central Line, Arterial Catheter, Nasogastic Tube Laboratory/Radiographs Laboratory Results: 06/02/19 06:59 06/02/19 06:59 05/31/19 06/01/19 06/01/19 13:20 19:20 19:20 WBC 8.6 D RBC 3.77 Hgb 11.0 L D Hct 36.8 MCV 98 H D MCH 29.1 MCHC 29.8 L RDW 19.4 H Plt Count 77 L Seg Neutrophils % Not Reportable Carbonic Acid HCO3/H2CO3 Ratio ABG pH ABG pCO2 ABG pO2 ABG HCO3 ABG O2 Saturation ABG Base Excess FiO2 Sodium 137.7 Potassium 5.5 H D Chloride 105 Carbon Dioxide 7 L* Anion Gap 26 H BUN 34 H Creatinine 1.78 H Est GFR ( Amer) 35 L Est GFR (Non-Af Amer) Glucose 521 H* Lactic Acid Calcium 8.3 L Ionized Calcium [place] Phosphorus 12.7 H D Magnesium 3.6 H D Total Bilirubin 2.4 H AST 212 H Alkaline Phosphatase 61 Ammonia Total Protein 5.3 L Albumin 3.4 L Blood Type AB POSITIVE Antibody Screen POSITIVE 06/01/19 06/01/19 06/01/19 19:20 19:20 22:34 WBC 10.6 H RBC 2.78 L Hgb 8.3 L D Hct 25.9 L MCV 93 D MCH 29.8 MCHC 31.9 L RDW 19.1 H Plt Count 84 L Seg Neutrophils % Carbonic Acid HCO3/H2CO3 Ratio ABG pH ABG pCO2 ABG pO2 ABG HCO3 ABG O2 Saturation ABG Base Excess FiO2 Sodium Potassium Chloride Carbon Dioxide Anion Gap BUN Creatinine Est GFR ( Amer) Est GFR (Non-Af Amer) Glucose Lactic Acid 16.3 H Calcium Ionized Calcium [place] Phosphorus Magnesium Total Bilirubin AST Alkaline Phosphatase Ammonia 97.6 H Total Protein Albumin Blood Type Antibody Screen 06/01/19 06/01/19 06/01/19 22:34 22:34 22:34 WBC RBC Hgb Hct MCV MCH MCHC RDW Plt Count Seg Neutrophils % Carbonic Acid 1.20 HCO3/H2CO3 Ratio 5:1 ABG pH 6.83 L* ABG pCO2 39.8 ABG pO2 117.2 H ABG HCO3 6.5 L ABG O2 Saturation 93.6 L ABG Base Excess -27.6 FiO2 100% Sodium 141.7 Potassium 5.3 H Chloride 104 Carbon Dioxide 6 L* Anion Gap 32 H BUN 34 H Creatinine 2.06 H Est GFR ( Amer) 29 L Est GFR (Non-Af Amer) Glucose 307 H Lactic Acid 16.4 H Calcium 8.1 L Ionized Calcium [place] 1.16 Phosphorus Magnesium Total Bilirubin AST Alkaline Phosphatase Ammonia Total Protein Albumin Blood Type Antibody Screen 06/02/19 06/02/19 06/02/19 01:20 01:20 01:20 WBC 8.3 RBC 2.54 L Hgb 7.5 L Hct 23.3 L MCV 92 MCH 29.6 MCHC 32.3 RDW 19.1 H Plt Count 76 L Seg Neutrophils % Carbonic Acid 1.08 HCO3/H2CO3 Ratio 8:1 ABG pH 7.02 L* ABG pCO2 36.0 ABG pO2 72.8 L ABG HCO3 9.2 L ABG O2 Saturation 86.2 L ABG Base Excess -20.3 FiO2 100% Sodium Cancelled Potassium Cancelled Chloride Cancelled Carbon Dioxide Cancelled Anion Gap Cancelled BUN Cancelled Creatinine Cancelled Est GFR ( Amer) Cancelled Est GFR (Non-Af Amer) Cancelled Glucose Cancelled Lactic Acid Calcium Cancelled Ionized Calcium [place] Phosphorus Magnesium Total Bilirubin AST Alkaline Phosphatase Ammonia Total Protein Albumin Blood Type Antibody Screen 06/02/19 06/02/19 06/02/19 01:20 02:00 06:59 WBC RBC Hgb Hct MCV MCH MCHC RDW Plt Count Seg Neutrophils % Carbonic Acid HCO3/H2CO3 Ratio ABG pH ABG pCO2 ABG pO2 ABG HCO3 ABG O2 Saturation ABG Base Excess FiO2 Sodium 142.5 136.6 L Potassium 4.6 4.2 Chloride 102 97 L Carbon Dioxide 13 L 12 L Anion Gap 28 H 28 H BUN 39 H 40 H Creatinine 2.21 H 2.66 H Est GFR ( Amer) 27 L 22 L Est GFR (Non-Af Amer) Glucose 248 H 263 H Lactic Acid 18.4 H Calcium 7.5 L 6.6 L* Ionized Calcium [place] Phosphorus 11.7 H Magnesium 2.9 H Total Bilirubin 2.9 H AST 574 H Alkaline Phosphatase 146 H Ammonia Total Protein 3.9 L Albumin 2.3 L Blood Type Antibody Screen 06/02/19 06/02/19 06/02/19 06:59 06:59 06:59 WBC 4.3 RBC 2.54 L Hgb 7.9 L Hct 24.0 L MCV 95 MCH 31.1 MCHC 32.8 RDW 16.6 H Plt Count 37 L Seg Neutrophils % Not Reportable Carbonic Acid 1.35 HCO3/H2CO3 Ratio 7:1 ABG pH 6.99 L* ABG pCO2 44.8 ABG pO2 75.1 L ABG HCO3 10.5 L ABG O2 Saturation 85.8 L ABG Base Excess -19.8 FiO2 100% Sodium Potassium Chloride Carbon Dioxide Anion Gap BUN Creatinine Est GFR ( Amer) Est GFR (Non-Af Amer) Glucose Lactic Acid 19.2 H Calcium Ionized Calcium [place] Phosphorus Magnesium Total Bilirubin AST Alkaline Phosphatase Ammonia Total Protein Albumin Blood Type Antibody Screen 05/31/19 06/01/19 06/02/19 13:20 19:20 07:00 Troponin I < 0.012 2.000 9.150 Impressions: Chest X-Ray 06/01/19 00:00 IMPRESSION: Interstitial edema. New dense consolidative change/airspace opacity in the left upper lobe/apex. Endotracheal tube in place copyright 2011 [employer]- All Rights Reserved Abdomen/Pelvis CT 06/02/19 06:00 IMPRESSION: There is complete opacification at the left hemithorax. There are airspace opacities at the right upper and lower lobes. Moderate bilateral effusions are present. This could be due to a developing malignancy and/or infection. There is patchy enhancement of the kidneys which may be due to poor renal function. Is stranding within the bilateral inguinal regions which is likely iatrogenic. Chest CT 06/02/19 06:00 IMPRESSION: There is complete opacification at the left hemithorax. There are airspace opacities at the right upper and lower lobes. Moderate bilateral effusions are present. This could be due to a developing malignancy and/or infection. There is patchy enhancement of the kidneys which may be due to poor renal function. Is stranding within the bilateral inguinal regions which is likely iatrogenic. Head CT 06/02/19 06:00 IMPRESSION: No acute intracranial hemorrhage is seen. All labs, radiographs, diagnostic studies and EKGs were personally reviewed: Yes In addition, reports of radiographic and diagnostic studies were read: Yes Assessment and Plan Plan Summary: Patient has had a significant catastrophic event event Her echocardiogram suggested that this may be cardiogenic as a source however there appears to be at least moderate LV function. We will follow cardiac enzymes and obtain EKG to determine possible etiology. She did develop what appears to be hemorrhagic pulmonary edema which is suggestive of TACO and or TRALI. We are in a difficult position because she appears to be hypovolemic and I am concerned that she may have a spontaneous retroperitoneal bleed and or significant hemolysis. The conundrum is that further blood products may worsen her situation. When she is stable will obtain a CT scan of the abdomen and pelvis as well as head. Equal and paramount concern is the possible need for tranexemic acid. 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 In the event that she has persistent and life-threatening bleeding with further hemorrhage we may be forced to use this to gain control. Importantly I have discussed with the blood bank and have asked for type- specific and the most near compatible blood. If we are unable to obtain this and or there is time latency to obtaining will be forced to give the least noncompatible or as near compatible as possible. Patient has a history of reactive airway disease and did develop wheezing. It is difficult to know which process began first. Her situation developed after straining while going to the bathroom. We will screen for DVT and if creatinine acceptable the possible diagnosis of PE. That being said the echocardiogram does not show evidence to support a massive VTE however it is under consideration. The most possible diagnosis is possible negative pressure pulmonary edema from exacerbation of reactive airway. We will continue nebulized treatments and monitor efficacy of nebulized Lasix which were given at the time of the hemorrhagic pulmonary edema. Awaiting chest x-ray to evaluate for TRALI. Given the small amount of blood that was given over a extended period of time this does not appear to be TACO. To need to follow troponins, EKG and other labs. Waiting DIC panel Place interosseous access Hematologic consult Dr. Roman has seen the patient and the situation has no good ending. She is now in DIC with fibrinogen at 93. Family arriving and we will extubate to comfort care. DNR right now. Critical Time Critical Time (minutes): 35 Level of Care: ICU Anticipated discharge: Other - Terminal extubation. Within: within 24 hours -: 1. The care of a critical patient is a dynamic process. This note is a herbicide service sales representative synopsis but static in nature. The timeframe for treatments given in order is not necessarily the actual time these treatments may have been done. 2. This patient requires critical care secondary to ongoing requirements for therapy not offered or safe outside the critical care environment. Transfer to a lower level of care will result in altered life or limb morbidity and mortality. 3. Multidisciplinary rounds completed. 4. ABCDE bundle addressed.
--- NOTE | 2019-06-02 12:57 | Death Summary ---
Summary Date : 06/02/19 Time of :: 10:40 Autopsy: No Resuscitation Status: Comfort Measures Only Consulting Provider: Dr. 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 Transfusion required specially prepared blood. Patient decompensated shortly after transfusion from a variety of reasons. Not least of which was baseline Stage IV squamous cell lung cancer. She also went into ARF with renal infarctions, was comatose post arrest and found to be in DIC as well. The family eventually decided that comfort care was the best option and she at 10:40 AM on 06/02/19 in the presence of her family.
[2019-06-02] MEDS ORDERED: SODIUM BICARBONATE 8.4% INJ 50 MEQ/50 ML DISP.SYRIN ONE (14:15)
[2019-06-02] MEDS ORDERED: ATROPINE SULFATE INJ 1 MG/10 ML DISP.SYRIN IV ONE (14:15)
[2019-06-02] MEDS ORDERED: EPINEPHRINE INJ 1 MG/10 ML DISP.SYRIN ONE (14:15)
[2019-06-02] MEDS ORDERED: LIDOCAINE 2% INJ-PF (100 MG/5 ML) SYRINGE ONE (14:15)
[2019-06-03 06:36] LABS: COMPLEMENT C4 4 mg/dL (14-44); IMMUNOGLOBULIN A 83 mg/dL (87-352); IMMUNOGLOBULIN G 459 mg/dL (700-1600)
[2019-06-03 17:40] LABS: COMPLEMENT C3 37 mg/dL (82-167); IMMUNOGLOBULIN M 106 mg/dL (26-217)
--- NOTE | 2019-06-04 06:03 | Progress Note ---
Provider Note Provider Note: Follow up Critical Care Note: At approximately 20:00 pm following arterial line placement, I placed a tibial intraosseus IV to the RLE without complication for additional access to run vasopressors and administer blood prn. This was performed given the coagulopathy and presumed DIC the patient was in causing significant bleeding during arterial line placement immediately after ROSC was obtained post-code. Dr Esquivel and I both thought it was best to avoid puncture of a second vessel at this time given her coagulopathy so we would not have two bleeding vessels. Unfortunately for Mrs Warren, the only site to place a central venous catheter would be the femoral vein as she has an SVC stent that if were to occlude, would certainly be fatal. 1 FFP and 500 mL 5% albumin were administered around 21:00 pm due to coagulopathy, hypotension, and volume contraction of the IVC for which the patient's blood pressure responded immediately by increasing. At approximately 23:00 pm, I performed another neurological exam prior to administration of Versed/Vecuronium for hypoxia for which the patient demonstrated no spontaneous movement of extremities or eyes, pupils are fixed at 7 mm and non-reactive to light bilaterally (no dolls eyes however), no cough/gag/corneal reflexes were present, left upper extremity with decerebrate posturing to central noxious stimuli while other three extremities remained completely flaccid. My concern is the patient has some degree of hypoxic brain injury from cardiac arrest, though the pH is 6.8 and will need to be improved followed by another neurological exam. She has had no sedation outside of the above. Patient also received sodium bicarb to temporize the acidemia pH 6.8 and a chloride free, sodium bicarbonate infusion was also ordered. The lactate level was noted not to be improving. The Femstop device remains in place with no pressure on the sphygmomanometer, just external pressure via the the band and teeth that keep it in place to temporize the right femoral artery bleeding. There is still doppler flow and pulsatility to the foot confirmed on ultrasound, which is comparable to the same amount of flow on the left foot leading me to believe there is a heart failure component contributing to ongoing acidemia. Therefore, I started the patient on a low-dose Milrinone infusion due to her TOMMY. I also administered SQ insulin at this time for hyperglycemia. Around 02:00 am, I ordered a transfusion of 2 PRBC's and 3 FFP given the patient's Hgb is now 7.5 and INR 3.2 for which I am suspicious for DIC, though the fibrinogen level is still normal at this time. Hemoglobin goal is >8 given more of an ACS treatment goal considering the cardiac arrest Mrs Warren experienced earlier this evening. A second tibial intraosseus IV was placed in the left tibia successfully to be able to infuse blood products and get the INR down before placing a central venous catheter for additional access the nurse needs to continue caring for Mrs Warren. Around 6 am, a left femoral triple lumen CVC was placed without complication following completion of the 3rd FFP transfusion ordered from 2am. Transfusing someone with the least incompatible blood takes time to receive despite ordering it ahead of time and carries a great risk of transfusion reaction whether that be TRIM, TRALI, or TACO. Unfortunately, we had to hope that steroids alone would counter that possibility and prevent Mrs Warren from succumbing to hemorrhage. At 06:30 am, I personally escorted Mrs Warren with the ICU team to Radiology for CT scans that were paramount to determine where the patient is bleeding from. The reason I escorted is that we had to transport her on the vent without breaking circuit on battery power with two full O2 tanks as she was on 100% APRV with a Peep high of 28, Peep low of 5, and inverted I/E ratio of 3:1 to treat her hypoxia. This was certainly risky, but 100% necessary as the patient would certainly without more information. The movements to and from CT went very smoothly without complication and it appears Mrs Warren may have experienced diffuse alveolar hemorrhage of the left lung as well as suffered bilateral renal infarcts. There was no active contrast extravasation of the runoff arterial supply in the right femoral artery. Critical Care Time Spent assessing, re-assessing, reviewing labs, multiple adjustments to the ventilator in the setting of hypoxia, multiple reassessments with the [id number] ultrasound, multiple conversations with the family discussing plan of care/test results, and coordinating care with Radiology and Dr Esquivel was greater than 240 minutes. This time is independent of the time spent on the two procedures arterial and central line insertion which was not included in the 240 minutes of ongoing critical care that was delivered in the overnight hours from 19:00 pm to 07:00 am.
== END 2019-06-02 12:40 | disposition left against medical advice (07) | DRG 314 ==
LOC: ER 10:41 → EH 16:14 → ICU 23:42
PROVIDERS: ADMIT Internal Medicine Critical Care Medicine; ATTEND Internal Medicine Critical Care Medicine
PROC: 30233R1 Transfusion of Nonautologous Platelets into Peripheral Vein, Percutaneous Approach (ICD-10-PCS; 2019-05-31)
PROC: 04HY32Z Insertion of Monitoring Device into Lower Artery, Percutaneous Approach (ICD-10-PCS; 2019-05-31)
PROC: 5A1935Z Respiratory Ventilation, Less than 24 Consecutive Hours (ICD-10-PCS; principal; 2019-06-01)
PROC: 0BH17EZ Insertion of Endotracheal Airway into Trachea, Via Natural or Artificial Opening (ICD-10-PCS; 2019-06-01)
PROC: 30233N1 Transfusion of Nonautologous Red Blood Cells into Peripheral Vein, Percutaneous Approach (ICD-10-PCS; 2019-06-01)
PROC: 02HV33Z Insertion of Infusion Device into Superior Vena Cava, Percutaneous Approach (ICD-10-PCS; 2019-06-01)
PROC: 5A09357 Assistance with Respiratory Ventilation, Less than 24 Consecutive Hours, Continuous Positive Airway Pressure (ICD-10-PCS; 2019-06-01)
PROC: 0BJ08ZZ Inspection of Tracheobronchial Tree, Via Natural or Artificial Opening Endoscopic (ICD-10-PCS; 2019-06-01)
DX: I95.89 Other hypotension (principal); R40.20 Unspecified coma; D65 Disseminated intravascular coagulation [defibrination syndrome]; D61.810 Antineoplastic chemotherapy induced pancytopenia; J96.01 Acute respiratory failure with hypoxia; D59.1 Other autoimmune hemolytic anemias; R04.89 Hemorrhage from other sites in respiratory passages; C34.90 Malignant neoplasm of unspecified part of unspecified bronchus or lung; N17.9 Acute kidney failure, unspecified; C79.31 Secondary malignant neoplasm of brain; I46.9 Cardiac arrest, cause unspecified; T45.1X5A Adverse effect of antineoplastic and immunosuppressive drugs, initial encounter; I25.10 Atherosclerotic heart disease of native coronary artery without angina pectoris; E78.5 Hyperlipidemia, unspecified; I10 Essential (primary) hypertension; E03.9 Hypothyroidism, unspecified; J44.9 Chronic obstructive pulmonary disease, unspecified; Z66 Do not resuscitate; D50.9 Iron deficiency anemia, unspecified; R57.1 Hypovolemic shock; D50.8 Other iron deficiency anemias; R73.9 Hyperglycemia, unspecified; E78.00 Pure hypercholesterolemia, unspecified; F17.210 Nicotine dependence, cigarettes, uncomplicated; D50.0 Iron deficiency anemia secondary to blood loss (chronic); Z95.5 Presence of coronary angioplasty implant and graft; Z92.21 Personal history of antineoplastic chemotherapy; Z92.3 Personal history of irradiation; Z79.01 Long term (current) use of anticoagulants; Z79.899 Other long term (current) drug therapy; Z79.4 Long term (current) use of insulin; Z88.6 Allergy status to analgesic agent; Z78.1 Physical restraint status
CPT/HCPCS: 36415; 36430; 36556; 36620; 70450; 71045; 71046; 71260; 74177; 80053; 82140; 82330; 82784; 82803; 82962; 83010; 83605; 83615; 83735; 84100; 84443; 84484; 85025; 85045; 85384; 85610; 85730; 86160; 86162; 86850; 86870; 86880; 86900; 86901; 86920; 86922; 87070; 87077; 87205; 92950; 93005; 93010; 93306; 94002; 94003; 94640; 94660; 96360; 99291; 99292; J0171; J0461; J0610; J1200; J1720; J1815; J1940; J2001; J2250; J2260; J2930; J3430; J3475; J3490; J7030; J7060; J7120; J7620; P9016; P9017; P9035; P9041; P9047; S0028